=== PATIENT | male | born 1940 | race Two or more races ===

== ENCOUNTER → 2016-12-22 | Outpatient (CLI) | payer MEDICARE, MEDICAID ==
[2016-12-08 08:23] LABS: Urine RBC None Seen /hpf (0 - 3)
[2016-12-08 08:31] LABS: Basophils # (auto) 0 uL; Basophils % (auto) 0.1 % (0.0-2.0); Eosinophils # (auto) 0 uL; Hematocrit 41.3 % (41.0-53.0); Hemoglobin 14.2 g/dL (13.5-17.5); Lymphocytes # (auto) 1.5 uL; Lymphocytes % (auto) 22.4 % (10.0-50.0); Mean Corpuscular Hgb Conc. 34.4 g/dL (32.0-36.0); Mean Corpuscular Volume 89.9 fL (80.0-100.0); Mean Platelet Volume 9.6 fL (7.4-10.4); Monocytes # (auto) 0.2 uL; Monocytes % (auto) 3.3 % (0.0-12.0); Neutrophils # (auto) 4.8 uL; Neutrophils % (auto) 74.2 % (37.0-80.0); Platelet Count (auto) 216 10^3/uL (140-450); Red Cell Distribution Width 13.5 % (11.6-16.0); White Blood Cell 6.5 10^3/uL (4.4-10.8)
[2016-12-08 08:36] LABS: Urine Bilirubin Negative (Negative); Urine Blood Negative /uL (Negative); Urine Color Yellow (Yellow); Urine Glucose Normal (Normal); Urine Ketone Negative (Negative); Urine Mucus FEW (None Seen); Urine Nitrite Negative (Negative); Urine Squamous Epithelial Cell FEW /hpf (<5); Urine Urobilinogen Normal (Negative); Urine pH 5.5 (5.0-8.0)
[2016-12-08 13:23] LABS: BUN/Creatinine Ratio 21.7; Bilirubin, Total 0.6 mg/dL (0.2-1.0); Potassium 3.8 mmol/L (3.5-5.1); Total Protein 7.2 g/dL (6.4-8.2)
[~2016-12-22] MED LIST: ALBUTEROL SULF 2.5 MG/0.5ML(0.5%) NEB SOLN ONE
== END | disposition home or self-care (01) ==
LOC: PF 12-08 07:33 → LAB 12-08 07:55 → RT 10:46
PROVIDERS: ATTEND Internal Medicine
DX: Z00.00 Encounter for general adult medical examination without abnormal findings (principal); I10 Essential (primary) hypertension; E78.2 Mixed hyperlipidemia; E55.9 Vitamin D deficiency, unspecified; R05 Cough; R73.09 Other abnormal glucose
CPT/HCPCS: 36415; 80053; 80061; 81001; 82306; 83036; 85025; 94060

== ENCOUNTER → 2017-09-24 | Outpatient (CLI) | payer MEDICARE, MEDICAID ==
[2017-09-24 08:29] LABS: Basophils # (auto) 0.1 uL; Basophils % (auto) 0.9 % (0.0-2.0); Eosinophils # (auto) 0.7 uL; Eosinophils % (auto) 9.5 % (0.0-7.0); Hematocrit 40.8 % (41.0-53.0); Hemoglobin 13.8 g/dL (13.5-17.5); Lymphocytes # (auto) 1.9 uL; Lymphocytes % (auto) 24.3 % (10.0-50.0); Mean Corpuscular Hemoglobin 31.2 pg (28.0-32.0); Mean Corpuscular Hgb Conc. 33.9 g/dL (32.0-36.0); Mean Corpuscular Volume 92.2 fL (80.0-100.0); Monocytes # (auto) 0.6 uL; Monocytes % (auto) 8.3 % (0.0-12.0); Neutrophils # (auto) 4.3 uL; Platelet Count (auto) 176 10^3/uL (140-450); Red Blood Cells 4.42 10^6/uL (4.5-5.90); White Blood Cell 7.6 10^3/uL (4.4-10.8)
[2017-09-24 11:47] LABS: Calcium 8.7 mg/dL (8.5-10.1); Potassium 3.4 mmol/L (3.5-5.1); Total Protein 7.2 g/dL (6.4-8.2)
== END | disposition home or self-care (01) ==
LOC: LAB 07:56
PROVIDERS: ATTEND Physician Assistant
DX: I10 Essential (primary) hypertension (principal); J30.9 Allergic rhinitis, unspecified; J42 Unspecified chronic bronchitis
CPT/HCPCS: 36415; 80053; 80061; 85025

== ENCOUNTER → 2018-09-06 | Outpatient (CLI) | payer MEDICARE, MEDICAID ==
[2018-09-06 09:03] LABS: Basophils # (auto) 0 uL; Basophils % (auto) 0.8 % (0.0-2.0); Eosinophils # (auto) 0.2 uL; Eosinophils % (auto) 3.6 % (0.0-7.0); Hematocrit 41.6 % (41.0-53.0); Hemoglobin 13.9 g/dL (13.5-17.5); Lymphocytes # (auto) 1.4 uL; Lymphocytes % (auto) 28.9 % (10.0-50.0); Mean Corpuscular Hgb Conc. 33.5 g/dL (32.0-36.0); Mean Corpuscular Volume 92.5 fL (80.0-100.0); Monocytes # (auto) 0.4 uL; Monocytes % (auto) 8.1 % (0.0-12.0); Neutrophils # (auto) 2.8 uL; Neutrophils % (auto) 58.6 % (37.0-80.0); Platelet Count (auto) 213 10^3/uL (140-450); Red Blood Cells 4.49 10^6/uL (4.5-5.90); Red Cell Distribution Width 13.3 % (11.8-14.3); White Blood Cell 4.9 10^3/uL (4.4-10.8)
[2018-09-06 09:49] LABS: BUN/Creatinine Ratio 14.6; Potassium 3.7 mmol/L (3.5-5.1)
[2018-09-06 09:56] LABS: Bilirubin, Total 0.7 mg/dL (0.2-1.0); Total Protein 7.3 g/dL (6.4-8.2)
== END | disposition home or self-care (01) ==
LOC: LAB 08:39
PROVIDERS: ATTEND Physician Assistant
DX: Z12.5 Encounter for screening for malignant neoplasm of prostate (principal); I10 Essential (primary) hypertension; J45.20 Mild intermittent asthma, uncomplicated; R73.03 Prediabetes
CPT/HCPCS: 36415; 80053; 80061; 83036; 84153; 84154; 85025

== ENCOUNTER → 2018-09-16 | Outpatient (CLI) | payer MEDICARE, MEDICAID | END | disposition home or self-care (01) | LOC: LAB 09:08 | PROVIDERS: ATTEND Urology | DX: N39.0 Urinary tract infection, site not specified (principal) | CPT/HCPCS: 87086 ==

== ENCOUNTER 2018-11-22 13:49 | Inpatient (IN) | payer MEDICARE, MEDICAID ==
[~2018-11-22] VITALS: Ht 170.2 cm; Wt 85.5 kg
[2018-11-22] MEDS: IPRATROPIUM BROM 0.5 MG/2.5ML INH SOL NEB SCH ×2 (06:29)
[2018-11-22] MEDS: ALBUTEROL SULF 2.5 MG/0.5ML(0.5%) NEB SOLN NEB SCH ×2 (06:29)
[2018-11-22 16:40] LABS: Basophils # (auto) 0 uL; Basophils % (auto) 0.5 % (0.0-2.0); Eosinophils # (auto) 0.1 uL; Eosinophils % (auto) 1.2 % (0.0-7.0); Hematocrit 44.1 % (41.0-53.0); Hemoglobin 14.8 g/dL (13.5-17.5); Lymphocytes % (auto) 12.9 % (10.0-50.0); Mean Corpuscular Hgb Conc. 33.5 g/dL (32.0-36.0); Mean Corpuscular Volume 92.5 fL (80.0-100.0); Monocytes % (auto) 12.8 % (0.0-12.0); Neutrophils # (auto) 5.6 uL; Neutrophils % (auto) 72.6 % (37.0-80.0); Platelet Count (auto) 160 10^3/uL (140-450); Red Blood Cells 4.77 10^6/uL (4.5-5.90); Red Cell Distribution Width 13.6 % (11.8-14.3); White Blood Cell 7.7 10^3/uL (4.4-10.8)
[2018-11-22 16:46] LABS: Albumin 4.3 g/dL (3.4-5.0); Anion Gap 6 (5-15); Blood Urea Nitrogen 14 mg/dL (7-18); Calcium 8.8 mg/dL (8.5-10.1); Carbon Dioxide 29 mmol/L (21-32); Chloride 104 mmol/L (98-107); Glucose 123 mg/dL (74-106); Potassium 3.6 mmol/L (3.5-5.1); Sodium 139 mmol/L (136-145)
[2018-11-22 16:53] LABS: Alanine Aminotransferase 21 U/L (16-61); Alkaline Phosphatase 45 U/L (45-117); Aspartate Aminotransferase 15 U/L (15-37); BUN/Creatinine Ratio 13.1; Bilirubin, Total 1.1 mg/dL (0.2-1.0); GFR African American 86 mL/min; GFR Non-African American 71 mL/min; Total Protein 8.1 g/dL (6.4-8.2)
[2018-11-22] MEDS ORDERED: ACETAMINOPHEN 325 MG TAB PO ONE (19:45)
[2018-11-22] MEDS ORDERED: ACETAMINOPHEN 500 MG TAB PO PRN (20:00)
[2018-11-22] MEDS ORDERED: MORPHINE SULFATE 4 MG/ML SYR/VIAL IV PRN (20:00)
[2018-11-22] MEDS ORDERED: HYDROcodone-ACET 5/325MG TAB PO PRN (20:00)
[2018-11-22] MEDS ORDERED: ONDANSETRON HCL 4 MG/2 ML VIAL IV PRN (20:00)
[2018-11-22] MEDS ORDERED: MORPHINE SULF INJ 2 MG/ML SYRINGE 1ML IV PRN (20:00)
[2018-11-22] MEDS ORDERED: NITROGLYCERIN 0.4 MG SL TAB SL PRN (20:00)
[2018-11-22] MEDS ORDERED: hydrALAZINE HCL 20 MG/ML VL IV PRN (20:00)
[2018-11-22] MEDS: cefTRIAXone 1GM/50ML D5W 50 ML IV SCH (20:22)
[2018-11-22] MEDS: AZITHROMYCIN 500MG/ 250ML 250 ML IV SCH (20:39)
[2018-11-22] MEDS ORDERED: ALBUTEROL SULF 2.5 MG/0.5ML(0.5%) NEB SOLN NEB ONE ×2 (21:00)
[2018-11-22] MEDS ORDERED: IPRATROPIUM BROM 0.5 MG/2.5ML INH SOL NEB ONE (21:00)
[2018-11-22] MEDS: methylPREDNISolone SOD SUCC 125 MG/2 ML VL IV SCH (21:31)
--- NOTE | 2018-11-22 21:47 | NUR ---
Telemetry admit from ESTELA TIJERINA admitted to Telemetry unit. Patient oriented to Swapna Levin, primary RN, unit, room, bed, and unit policies regarding patient care and visiting hours. Patient now on continuous telemetry monitoring, tele box # [id number] and telemetry reading on arrival to unit is SR 70s. Patient's vs taken and recorded, placed on bedside oxygen, weighed by bedscale and encouraged to call if they need something, call light within reach. POC reviewed with pt and pt's daughter who also translated for pt. All questions and concerns addressed, both verbalized understanding. Side rails up x2, bed in lowest, locked position, non skid socks on. Continue care. Note:
[2018-11-22 22:00] VITALS: BP 136/83
[2018-11-22] MEDS ORDERED: NIFE90TA30 PO (22:35)
[2018-11-22] MEDS ORDERED: LISI40TA PO (22:35)
[2018-11-22] MEDS ORDERED: RANI150C11 PO (22:35)
[2018-11-22] MEDS ORDERED: DOXA4TAB40 PO (22:35)
[2018-11-22] MEDS ORDERED: [UNRECOGNIZED DRUG - CODE] PO (22:35)
[2018-11-23 03:33] VITALS: BP 136/83
[2018-11-23 05:06] VITALS: BP 140/84
[2018-11-23] MEDS: ALBUTEROL SULF 2.5 MG/0.5ML(0.5%) NEB SOLN NEB SCH ×4 (06:29→22:36)
[2018-11-23] MEDS: IPRATROPIUM BROM 0.5 MG/2.5ML INH SOL NEB SCH ×4 (06:29→22:36)
--- NOTE | 2018-11-23 07:15 | NUR ---
OPENING SHIFT NOTE Patient is A/Ox4. No s/s of distress noted at this time. Patient denies any pain. Discussed POC with patient, patient verbalized understanding. Bed in lowest locked position, call light within reach, side rails up x2. Will continue to monitor.
[2018-11-23 08:13] LABS: Urine Bacteria NONE SEEN /hpf (None Seen); Urine Blood Negative /uL (Negative); Urine Mucus FEW (None Seen); Urine Specific Gravity 1.021 (1.001-1.035); Urine WBC <1 /hpf (0 - 3)
[2018-11-23 08:55] VITALS: BP 137/85
[2018-11-23] MEDS: methylPREDNISolone SOD SUCC 125 MG/2 ML VL IV SCH ×2 (09:00→21:42)
[2018-11-23] MEDS ORDERED: amLODIPine BESYLATE 5 MG TAB PO SCH (10:00)
[2018-11-23] MEDS: AZITHROMYCIN 500MG/ 250ML 250 ML IV SCH (10:03)
[2018-11-23] MEDS: cefTRIAXone 1GM/50ML D5W 50 ML IV SCH (10:03)
[2018-11-23] MEDS: PANTOPRAZOLE 40 MG TAB PO SCH (10:04)
[2018-11-23 12:05] LABS: Basophils # (auto) 0 uL; Eosinophils # (auto) 0 uL; Hemoglobin 13.9 g/dL (13.5-17.5); Lymphocytes # (auto) 0.6 uL; Lymphocytes % (auto) 8.1 % (10.0-50.0); Mean Corpuscular Hemoglobin 31.4 pg (28.0-32.0); Mean Corpuscular Hgb Conc. 33.8 g/dL (32.0-36.0); Mean Corpuscular Volume 92.7 fL (80.0-100.0); Monocytes # (auto) 0.3 uL; Monocytes % (auto) 3.5 % (0.0-12.0); Neutrophils # (auto) 6.4 uL; Neutrophils % (auto) 88.4 % (37.0-80.0); Platelet Count (auto) 154 10^3/uL (140-450); Red Blood Cells 4.42 10^6/uL (4.5-5.90); Red Cell Distribution Width 13.4 % (11.8-14.3); White Blood Cell 7.2 10^3/uL (4.4-10.8)
[2018-11-23 12:32] LABS: Potassium 4.4 mmol/L (3.5-5.1)
[2018-11-23 12:43] LABS: BUN/Creatinine Ratio 19.4; Calcium 8.6 mg/dL (8.5-10.1)
[2018-11-23] MEDS ORDERED: IOHEXOL 350 MG/ML 100ML IJ ONE (12:44)
[2018-11-23] MEDS ORDERED: SODIUM CHLORIDE 0.9% 1,000 ML IV ONE (12:45)
--- NOTE | 2018-11-23 12:55 | NUR ---
PATIENT TAKEN TO RADIOLOGY VIA WHEELCHAIR, NO S/S OF DISTRESS NOTED AT THIS TIME.
[2018-11-23 13:00] VITALS: BP 143/88
[2018-11-23 17:00] VITALS: BP 148/85
--- NOTE | 2018-11-23 18:14 | NUR ---
PAGED HOSPITALIST TO SEE IF THE PATIENT COULD RECEIVE HIS MEDS FOR HIS BPH. WAITING FOR A CALL BACK.
--- NOTE | 2018-11-23 19:27 | NUR ---
GAVE REPORT TO MONIQUE REDD
--- NOTE | 2018-11-23 20:30 | NUR ---
Opening Shift Note Assumed care of patient, awake and alert, oriented x4. No S/S of distress/SOB or pain. Instructed on POC, verbalized understanding. Call light within reach and encouraged to call for assist PRN, will continue to monitor for changes Q1hr and PRN. Side rails up x2, bed in lowest, locked position, non skid socks on. Daughter at bedside translating for pt. Pt requesting to have his ranitidine, nifedipine and lisinopril continued. Will inform hospitalist. Continue care.
--- NOTE | 2018-11-23 21:00 | NUR ---
POM DUTASTERIDE SENT DOWN TO PHARMACY. POM BAND PLACED ON PT. CONTINUE CARE.
[2018-11-23] MEDS: ACETYLCYSTEINE 10 %(100MG/ML) SOL 4ML NEB SCH (21:06)
[2018-11-23] MEDS: DUTASTERIDE 0.5 MG PO SCH (21:35)
[2018-11-23] MEDS: DOXAZOSIN MESYL 2 MG TAB PO SCH (21:43)
[2018-11-23 21:46] VITALS: BP 145/84
--- NOTE | 2018-11-23 22:00 | NUR ---
TRUCK LEASING MANAGER Called/paged Thompson Acuña TRUCK LEASING MANAGER called re:med reconciliation-lisinopril, nifedipine, ranitidine. Waiting for call back. Continue care.
--- NOTE | 2018-11-23 22:41 | NUR ---
HEALTH CARE AIDE returned call Thompson Acuña HEALTH CARE AIDE returned call, updated on patient status and reason for call, no new orders. Per HEALTH CARE AIDE, have AM hospitalist reconcile home meds. Continue care.
[2018-11-24 01:40] VITALS: BP 145/84
[2018-11-24 04:55] VITALS: BP 143/70
[2018-11-24 04:56] VITALS: BP 153/80
[2018-11-24] MEDS: ALBUTEROL SULF 2.5 MG/0.5ML(0.5%) NEB SOLN NEB SCH ×3 (06:59→19:35)
[2018-11-24] MEDS: IPRATROPIUM BROM 0.5 MG/2.5ML INH SOL NEB SCH ×3 (06:59→19:35)
[2018-11-24] MEDS: ACETYLCYSTEINE 10 %(100MG/ML) SOL 4ML NEB SCH ×3 (07:02→19:35)
--- NOTE | 2018-11-24 07:30 | NUR ---
Opening Shift Note Assumed care of patient, awake and alert, sitting on bed. No S/S of distress/SOB or pain. Noted lungs clear on upper lobes and diminished on bilateral lower lobes. Pt encouraged to do deep breathing and coughing exercises. Instructed on POC and to call for assist PRN, will continue to monitor for changes Q1hr and PRN.
[2018-11-24 09:00] VITALS: BP 155/89
--- NOTE | 2018-11-24 09:01 | NUR ---
Pt seen by Dr. Marte pt made aware he needs repeat chest xray, ordered incentive spirometer.
[2018-11-24] MEDS: AZITHROMYCIN 500MG/ 250ML 250 ML IV SCH (09:34)
[2018-11-24] MEDS: methylPREDNISolone SOD SUCC 125 MG/2 ML VL IV SCH ×2 (09:34→23:18)
[2018-11-24] MEDS: cefTRIAXone 1GM/50ML D5W 50 ML IV SCH (09:34)
[2018-11-24] MEDS: PANTOPRAZOLE 40 MG TAB PO SCH (09:35)
--- NOTE | 2018-11-24 09:35 | NUR ---
Pt educated on how to use the incentive spirometer and its benefits, pt able to demonstrate how to use the IS, pt verbalized understanding.
[2018-11-24] MEDS: LISINOPRIL 20 MG TAB PO SCH (09:44)
[2018-11-24] MEDS: NIFEdipine ER 30 MG TAB PO SCH (09:44)
--- NOTE | 2018-11-24 11:18 | NUR ---
STRESS TEST RESULT CALLED STRESS TEST LAB, SPOKE WITH AUNDREA, SHE SAID DR. CAMACHO WILL READ IT LATER THIS AFTERNOON
[2018-11-24 13:00] VITALS: BP 140/88
--- NOTE | 2018-11-24 16:54 | NUR ---
PT SEEN BY DR. ROCK PT MADE AWARE HE WILL BE SCHEDULED FOR BRONCHOSCOPY WITH WASHING BRUSHING AND BIOPSY TOMORROW MORNING UNDER MODERATE SEDATION, PROCEDURE EXPLAINED TO THE PT BY MD, PT VERBALIZED UNDERSTANDING. CERTIFIED HYPERBARIC TECHNOLOGIST RONNIE MADE AWARE AND SCHEDULED THE PT AT 10AM TOMORROW DR. ROCK MADE AWARE OF THE TIME.
[2018-11-24 17:00] VITALS: BP 125/80
--- NOTE | 2018-11-24 19:35 | NUR ---
Respiratory note: PT REFUSED CPT AT THIS TIME. WILL CONTINUE ON NEXT SCHEDULED TX.
--- NOTE | 2018-11-24 20:00 | NUR ---
Opening Shift Note Assumed care of patient, awake and alert, oriented x4. No S/S of distress/SOB or pain. Instructed on POC, verbalized understanding, aware he will be npo p mn for bronchoscopy in am. Bronchoscopy education material given to pt and pt's daughter. Call light within reach and encouraged to call for assist PRN, will continue to monitor for changes Q1hr and PRN. Side rails up x2, bed in lowest, locked position, non skid socks on. Daughter at bedside translating for pt. Continue care.
--- NOTE | 2018-11-24 22:00 | NUR ---
IV insertion IV access obtained, via clean sterile technique by inserting 20 gauge catheter at R WRIST after 1 attempt(s)by Raji REDD. IV secured properly. No trauma to site. Patient tolerated well. NOTE: IV removal IV DC'd with clean sterile technique, catheter fully intact. Pressure dressing applied to site. Patient tolerated well. NOTE: Addendum: 11/25/18 at 0111 by Swapna Levin RN 2145-IV START UNSUCCESSFUL X2.
[2018-11-24] MEDS: DOXAZOSIN MESYL 2 MG TAB PO SCH (22:29)
[2018-11-24] MEDS: DUTASTERIDE 0.5 MG PO SCH (22:29)
[2018-11-24 22:47] LABS: INR 0.99 (0.9-1.15); Partial Thromboplastin Time 26.4 sec (23.78-33.04); Prothrombin Time 10.6 sec (9.27-12.13)
[2018-11-25 05:00] VITALS: BP 138/80
[2018-11-25] MEDS: ACETYLCYSTEINE 10 %(100MG/ML) SOL 4ML NEB SCH ×3 (06:26→18:47)
[2018-11-25] MEDS: IPRATROPIUM BROM 0.5 MG/2.5ML INH SOL NEB SCH ×4 (06:26→18:47)
[2018-11-25] MEDS: ALBUTEROL SULF 2.5 MG/0.5ML(0.5%) NEB SOLN NEB SCH ×4 (06:26→18:47)
[2018-11-25 08:26] VITALS: BP 122/72
[2018-11-25] MEDS: methylPREDNISolone SOD SUCC 125 MG/2 ML VL IV SCH ×2 (08:34→21:50)
[2018-11-25] MEDS ORDERED: LIDOCAINE HCL 2% TOP JELLY 5ML TOP ONE (08:36)
[2018-11-25] MEDS ORDERED: GLYCOPYRROLATE 0.2 MG/ML 1ML VIAL ONE (08:36)
[2018-11-25] MEDS ORDERED: SODIUM CHLORIDE LOCK 30 ML ONE (08:36)
[2018-11-25] MEDS ORDERED: EPINEPHrine HCL 1 MG/1 ML AMP ONE (08:36)
[2018-11-25] MEDS ORDERED: LIDOCAINE 2%HCL (LOCAL ANESTH.) INJ 20ML MDV ONE (08:37)
[2018-11-25] MEDS: cefTRIAXone 1GM/50ML D5W 50 ML IV SCH (08:50)
[2018-11-25] MEDS: AZITHROMYCIN 500MG/ 250ML 250 ML IV SCH (09:51)
--- NOTE | 2018-11-25 10:00 | NUR ---
MEDICATION HELD PO MEDICATON HELD PT IS NPO FOR PROCEDURE.
--- NOTE | 2018-11-25 11:12 | NUR ---
PT TRANSPORTED TO PRE-OP VIA BED FOR BRONCHOSCOPY, PT IS AWAKE AND ALERT, PRE-OP CHECKLIST COMPLETED AND CONSENTS SIGNED, IV ON RIGHT WRIST PATENT AND FLUSHING.
[2018-11-25] MEDS: MIDAZOLAM HCL 5 MG/ML-1ML VIAL ONE ×4 (11:54→12:11)
[2018-11-25] MEDS: fentaNYL CITRATE 100 MCG/2 ML VL ONE ×3 (11:54→12:02)
--- NOTE | 2018-11-25 14:18 | NUR ---
RECEIVED PT FROM PACU PT IS AWAKE AND ALERT, NO SIGNS OF DISTRESS AT THIS TIME, WILL CONTINUE TO MONITOR.
--- NOTE | 2018-11-25 14:47 | NUR ---
NUTRITION ASSESSMENT NOTES Please refer to link notes of nutrition screen form filed under the intervention section of the plan of care for further details. Est. Needs: 1750 kcal to 2150 kcal (20-25 kcal/kgBW), 70 gms to 87 gms pro (0.8-1.0 gms/kgBW). Will continue to monitor pertinent labs and reassess nutrient need prn Thank you. Addendum: 11/25/18 at [address] Amended: Links added.
[2018-11-25] MEDS: PANTOPRAZOLE 40 MG TAB PO SCH (14:49)
[2018-11-25] MEDS: NIFEdipine ER 30 MG TAB PO SCH (14:49)
[2018-11-25] MEDS: LISINOPRIL 20 MG TAB PO SCH (14:50)
[2018-11-25 16:22] VITALS: BP 119/67
--- NOTE | 2018-11-25 19:40 | NUR ---
Opening Shift Note Assumed care of patient, awake and alert. No S/S of distress/SOB or pain. Pt is currently resting in bed with the rails up x2, bed is locked in the lowest position and the call light is within reach. Pt has a 20ga IV in the right wrist that flushes without discomfort. Instructed on POC and to call for assist as needed. Will continue to monitor.
[2018-11-25] MEDS: DUTASTERIDE 0.5 MG PO SCH (21:50)
[2018-11-25] MEDS: DOXAZOSIN MESYL 2 MG TAB PO SCH (21:51)
[2018-11-25 22:00] VITALS: BP 120/72
[2018-11-26 05:00] VITALS: BP 126/77
[2018-11-26] MEDS: ALBUTEROL SULF 2.5 MG/0.5ML(0.5%) NEB SOLN NEB SCH ×5 (06:37→22:47)
[2018-11-26] MEDS: ACETYLCYSTEINE 10 %(100MG/ML) SOL 4ML NEB SCH ×3 (06:37→19:31)
[2018-11-26] MEDS: IPRATROPIUM BROM 0.5 MG/2.5ML INH SOL NEB SCH ×5 (06:37→22:47)
--- NOTE | 2018-11-26 07:30 | NUR ---
OPENING SHIFT NOTE: Received report from NOC RNBlair. Assumed care of patient. Patient resting in bed, denies pain and denies SOB. Remains on 4L via Oxymizer. Bed in lowest position, rails x2 up and call light within reach. Updated on plan of care. Will continue to monitor.
--- NOTE | 2018-11-26 08:02 | NUR ---
MD/PULMONOLOGY: T/C from Dr Coon. Updated MD on patient's status overnight. MD recommends the following on discharge: Prednisone, Inhalers - steroid and rescue, home O2, CXR pa/lat and to follow up with him in 1 week from discharge. RN to relay to hospitalist.
[2018-11-26 08:32] VITALS: BP 135/69
[2018-11-26 09:31] VITALS: BP 120/72
[2018-11-26] MEDS: methylPREDNISolone SOD SUCC 125 MG/2 ML VL IV SCH ×2 (09:50→21:15)
[2018-11-26] MEDS: PANTOPRAZOLE 40 MG TAB PO SCH (09:51)
[2018-11-26] MEDS: AZITHROMYCIN 500MG/ 250ML 250 ML IV SCH (09:51)
[2018-11-26] MEDS: cefTRIAXone 1GM/50ML D5W 50 ML IV SCH (09:51)
[2018-11-26] MEDS: LISINOPRIL 20 MG TAB PO SCH (09:51)
[2018-11-26] MEDS: NIFEdipine ER 30 MG TAB PO SCH (09:52)
[2018-11-26 12:46] VITALS: BP 127/78
[2018-11-26 17:03] VITALS: BP 114/76
--- NOTE | 2018-11-26 18:42 | NUR ---
MD: Dr Naylor at bedside to see patient. Patient placed on room air, room air ABG ordered. Plan for discharge in AM 11/27/18.
--- NOTE | 2018-11-26 19:20 | NUR ---
CLOSING SHIFT NOTE: Report given to NOC RN Cassie. Endorsed care of patient. Bedside hand off completed.
--- NOTE | 2018-11-26 19:40 | NUR ---
Opening Shift Note Assumed care of patient, awake and alert x 4. Patient denies pain at this time. Patient is on nasal cannula 3L, oxygen saturation is 91%. Patient denies shortness of breath. Instructed on plan of care and to call for assistance as needed. Bed is locked in lowest position, side rails x 2 are up, and call light is within reach.
[2018-11-26] MEDS: DOXAZOSIN MESYL 2 MG TAB PO SCH (21:14)
[2018-11-26] MEDS: DUTASTERIDE 0.5 MG PO SCH (21:15)
[2018-11-26 22:00] VITALS: BP 113/78
[2018-11-27 03:42] VITALS: BP 113/78
[2018-11-27 05:00] VITALS: BP 121/73
[2018-11-27] MEDS: IPRATROPIUM BROM 0.5 MG/2.5ML INH SOL NEB SCH ×3 (06:23→19:10)
[2018-11-27] MEDS: ACETYLCYSTEINE 10 %(100MG/ML) SOL 4ML NEB SCH ×3 (06:23→19:11)
[2018-11-27] MEDS: ALBUTEROL SULF 2.5 MG/0.5ML(0.5%) NEB SOLN NEB SCH ×3 (06:23→19:10)
--- NOTE | 2018-11-27 07:21 | NUR ---
CLOSING SHIFT NOTE Endorsed patient care to Jessica REDD.
--- NOTE | 2018-11-27 07:30 | NUR ---
OPENING SHIFT NOTE: Received report from NOC RNCassie. Assumed care of patient. Patient resting in bed, denies pain and denies SOB. Remains on 3L via NC. Bed in lowest position, rails x2 up and call light within reach. Updated on plan of care. Will continue to monitor.
[2018-11-27 09:43] VITALS: BP 130/64
[2018-11-27] MEDS: AZITHROMYCIN 500MG/ 250ML 250 ML IV SCH (10:11)
[2018-11-27] MEDS: cefTRIAXone 1GM/50ML D5W 50 ML IV SCH (10:11)
[2018-11-27] MEDS: methylPREDNISolone SOD SUCC 125 MG/2 ML VL IV SCH ×2 (10:12→21:57)
[2018-11-27] MEDS: PANTOPRAZOLE 40 MG TAB PO SCH (10:12)
[2018-11-27] MEDS: LISINOPRIL 20 MG TAB PO SCH (10:13)
[2018-11-27] MEDS: NIFEdipine ER 30 MG TAB PO SCH (10:13)
[2018-11-27 13:44] VITALS: BP 120/84
--- NOTE | 2018-11-27 15:30 | NUR ---
MD: Dr Mesa at bedside. Patient examined. Orders given for additional SoluMedrol dose x1. Family educated about holding discharge until tomorrow if patient improves.
[2018-11-27] MEDS ORDERED: methylPREDNISolone SOD SUCC 125 MG/2 ML VL IV ONE (15:45)
[2018-11-27 17:27] VITALS: BP 127/76
--- NOTE | 2018-11-27 19:11 | NUR ---
CLOSING SHIFT NOTE: Report given to NOC RN Cassie. Endorsed care of patient. Bedside hand off completed.
--- NOTE | 2018-11-27 19:45 | NUR ---
Opening Shift Note Assumed care of patient, awake and alert x4. Patient denies pain at this time. Patient is on 3L nasal cannula, no signs/symptoms of shortness of breath noted. Instructed on plan of care and to call for assistance as needed. Bed is locked in lowest position, side rails x 2 are up, call light is within reach, and bed alarm is on.
--- NOTE | 2018-11-27 21:52 | NUR ---
HOSPITALIST PAGED RE: DRY THROAT Hospitalist paged. Patient had a bronchoscopy on 11-25-18 and patient is complaining of a dry/irritated throat. Awaiting call back.
[2018-11-27] MEDS: DOXAZOSIN MESYL 2 MG TAB PO SCH (21:57)
[2018-11-27] MEDS: DUTASTERIDE 0.5 MG PO SCH (21:58)
--- NOTE | 2018-11-27 22:14 | NUR ---
HOSPITALIST RETURNED CALL Hospitalist HAILE May returned call, notified on patient complaining of dry/irritated throat. No new orders received.
[2018-11-28 05:00] VITALS: BP 138/72
[2018-11-28] MEDS: ACETYLCYSTEINE 10 %(100MG/ML) SOL 4ML NEB SCH ×4 (07:46→22:17)
[2018-11-28] MEDS: IPRATROPIUM BROM 0.5 MG/2.5ML INH SOL NEB SCH ×4 (07:46→22:17)
[2018-11-28] MEDS: ALBUTEROL SULF 2.5 MG/0.5ML(0.5%) NEB SOLN NEB SCH (07:46)
--- NOTE | 2018-11-28 07:54 | NUR ---
CLOSING SHIFT NOTE Endorsed patient care to Lisa REDD.
--- NOTE | 2018-11-28 07:55 | NUR ---
Opening Shift Note Assumed care of patient, awake and alert. No S/S of distress, SOB noted on exertion/activity, no reports of pain. Instructed on POC-continue with IV antibiotics. Patient informed to call for assist PRN, will continue to monitor for changes Q1hr and PRN.
[2018-11-28 09:00] VITALS: BP 110/69
[2018-11-28] MEDS: AZITHROMYCIN 500MG/ 250ML 250 ML IV SCH (10:07)
[2018-11-28] MEDS: methylPREDNISolone SOD SUCC 125 MG/2 ML VL IV SCH ×3 (10:07→21:56)
[2018-11-28] MEDS: cefTRIAXone 1GM/50ML D5W 50 ML IV SCH (10:07)
[2018-11-28] MEDS: PANTOPRAZOLE 40 MG TAB PO SCH (10:08)
[2018-11-28] MEDS ORDERED: MORPHINE SULF INJ 2 MG/ML SYRINGE 1ML IV PRN (11:30)
[2018-11-28] MEDS ORDERED: HYDROcodone-ACET 5/325MG TAB PO PRN (11:30)
[2018-11-28] MEDS ORDERED: METOPROLOL TARTRATE 25 MG TAB PO ONE (11:45)
[2018-11-28 12:14] LABS: Basophils # (auto) 0 uL; Basophils % (auto) 0.1 % (0.0-2.0); Eosinophils # (auto) 0 uL; Hematocrit 42.9 % (41.0-53.0); Hemoglobin 14.5 g/dL (13.5-17.5); Lymphocytes # (auto) 0.7 uL; Lymphocytes % (auto) 7.2 % (10.0-50.0); Mean Corpuscular Hemoglobin 31.1 pg (28.0-32.0); Mean Corpuscular Hgb Conc. 33.9 g/dL (32.0-36.0); Mean Corpuscular Volume 91.7 fL (80.0-100.0); Neutrophils # (auto) 8.1 uL; Neutrophils % (auto) 82.7 % (37.0-80.0); Nucleated Red Blood Cells % 0.1 %; Platelet Count (auto) 184 10^3/uL (140-450); Red Blood Cells 4.68 10^6/uL (4.5-5.90); Red Cell Distribution Width 13.2 % (11.8-14.3); White Blood Cell 9.9 10^3/uL (4.4-10.8)
[2018-11-28] MEDS: NIFEdipine ER 30 MG TAB PO SCH (12:14)
[2018-11-28] MEDS: LISINOPRIL 20 MG TAB PO SCH (12:14)
[2018-11-28 12:25] LABS: BUN/Creatinine Ratio 26.6; Calcium 8.3 mg/dL (8.5-10.1); Magnesium 2.9 mg/dL (1.6-2.6); Phosphorus 2.6 mg/dL (2.5-4.90); Potassium 3.6 mmol/L (3.5-5.1)
--- NOTE | 2018-11-28 13:49 | NUR ---
Care endorsed to TRAMAINE Reddy.
[2018-11-28 13:50] VITALS: BP 157/75
--- NOTE | 2018-11-28 13:50 | NUR ---
RESUMPTION OF CARE RECEIVED REPORT FROM TRAMAINE JACQUES FOR CONTINUATION OF CARE.
[2018-11-28] MEDS: LEVALBUTEROL HCL 1.25 MG/3 ML NEB NEB SCH ×2 (14:33→22:17)
[2018-11-28 17:00] VITALS: BP 121/81
--- NOTE | 2018-11-28 18:50 | NUR ---
END OF SHIFT PATIENT RESTING IN BED. NO S/S OF DISTRESS. INSTRUCTED PATIENT TO CALL PRN. BED IN LOWEST LOCKED POSITION, CALL LIGHT WITHIN REACH. ENDORSED CARE TO TRAMAINE AUGUSTINE.
--- NOTE | 2018-11-28 19:50 | NUR ---
Opening Shift Note Assumed care of patient, awake and alert, oriented x4. No S/S of distress/SOB or pain. Instructed on POC, verbalized understanding. Call light within reach and encouraged to call for assist PRN, will continue to monitor for changes Q1hr and PRN. Side rails up x2, bed in lowest, locked position, non skid socks on. Daughter at bedside translating for pt. Continue care.
[2018-11-28 21:00] VITALS: BP 136/71
[2018-11-28] MEDS: DUTASTERIDE 0.5 MG PO SCH (21:56)
[2018-11-28] MEDS: DOXAZOSIN MESYL 2 MG TAB PO SCH (21:56)
[2018-11-28] MEDS ORDERED: METOPROLOL TARTRATE 25 MG TAB PO SCH (22:00)
[2018-11-29] MEDS: ACETYLCYSTEINE 10 %(100MG/ML) SOL 4ML NEB SCH ×6 (02:15→22:31)
[2018-11-29] MEDS: IPRATROPIUM BROM 0.5 MG/2.5ML INH SOL NEB SCH ×6 (02:16→22:31)
[2018-11-29 05:00] VITALS: BP 106/68
[2018-11-29] MEDS: methylPREDNISolone SOD SUCC 125 MG/2 ML VL IV SCH (05:56)
[2018-11-29] MEDS: LEVALBUTEROL HCL 1.25 MG/3 ML NEB NEB SCH (07:22)
--- NOTE | 2018-11-29 07:55 | NUR ---
Opening Shift Note Assumed care of patient, awake, alert, and oriented x4. Patient has 4/10 complaints of headache at this time. Patient has IV in right wrist 20g saline locked and flushing well, patient tolerating well. Patient is on 3L NC with no S/S of distress/SOB. Patient's skin is intact. Instructed on POC and to call for assist PRN, will continue to monitor for changes Q1hr and PRN. Bed in lowest locked position, call light within reach.
[2018-11-29 08:00] VITALS: BP 132/65
[2018-11-29 08:30] VITALS: BP 132/65
[2018-11-29] MEDS: cefTRIAXone 1GM/50ML D5W 50 ML IV SCH (09:37)
[2018-11-29] MEDS: LISINOPRIL 20 MG TAB PO SCH (09:38)
[2018-11-29] MEDS: NIFEdipine ER 30 MG TAB PO SCH (09:38)
[2018-11-29] MEDS: PANTOPRAZOLE 40 MG TAB PO SCH (09:39)
[2018-11-29] MEDS: DILTIAZEM HCL 120MG ER CAP PO SCH (09:39)
[2018-11-29] MEDS: ENOXAPARIN SOD 40 MG/0.4 ML SYRINGE SC SCH (09:40)
[2018-11-29] MEDS ORDERED: ASPirin-EC 81 mg tab PO ONE (11:15)
[2018-11-29] MEDS ORDERED: DIGOXIN (250MCG/ML) 2 ML AMPULE IV SCH (11:15)
[2018-11-29] MEDS: DOXYCYCLINE 100 MG TAB/CAP PO SCH ×2 (12:27→22:27)
[2018-11-29] MEDS: predniSONE 20 MG TAB PO SCH (12:28)
[2018-11-29 12:30] VITALS: BP 130/80
[2018-11-29] MEDS: BUDESONIDE (INHALATION) 0.5 MG/2 ML NEB NEB SCH ×2 (14:17→22:31)
[2018-11-29 17:14] VITALS: BP 119/68
--- NOTE | 2018-11-29 17:45 | NUR ---
AT BEDSIDE DR. DURON AT BEDSIDE. PER MD, PATIENT TO GET ONE TIME DOSE OF PO DIGOXIN 0.25 TONIGHT. ORDERS READ BACK AND VERIFIED.
[2018-11-29] MEDS ORDERED: LEVALBUTEROL HCL 1.25 MG/3 ML NEB ONE (18:18)
--- NOTE | 2018-11-29 20:10 | NUR ---
Opening Shift Note Assumed care of patient, awake and alert, oriented x4. No S/S of distress/SOB or pain. Instructed on POC and encouraged use of IS, verbalized understanding and returned demo. Call light within reach and encouraged to call for assist PRN, will continue to monitor for changes Q1hr and PRN. Side rails up x2, bed in lowest, locked position, non skid socks on. Daughter at bedside translating for pt. Continue care.
[2018-11-29 21:43] VITALS: BP 114/67
[2018-11-29] MEDS ORDERED: DIGOXIN 0.25 MG TAB PO ONE (22:00)
[2018-11-29] MEDS: DOXAZOSIN MESYL 2 MG TAB PO SCH (22:27)
[2018-11-29] MEDS: DUTASTERIDE 0.5 MG PO SCH (22:27)
[2018-11-30] MEDS: ACETYLCYSTEINE 10 %(100MG/ML) SOL 4ML NEB SCH ×4 (02:00→14:27)
[2018-11-30] MEDS: IPRATROPIUM BROM 0.5 MG/2.5ML INH SOL NEB SCH ×4 (02:00→14:27)
[2018-11-30 02:27] VITALS: BP 114/67
[2018-11-30 04:22] VITALS: BP 116/78
--- NOTE | 2018-11-30 07:30 | NUR ---
OPENING SHIFT NOTE: Received report from NOC RNChristine. Assumed care of patient. Patient sleeping quietly. Bed in lowest position, rails x2 up and call light within reach. Updated on plan of care. Will continue to monitor.
[2018-11-30 09:00] VITALS: BP 122/82
--- NOTE | 2018-11-30 09:15 | NUR ---
TELE: Call from [facility]. Patient's HR 150. Went to assess patient. Patient sitting up in bed. No signs/symptoms of distress. Apical pulse taken. HR now 120. Will continue to monitor.
[2018-11-30] MEDS ORDERED: DIGOXIN 0.125 MG TAB PO SCH (10:00)
[2018-11-30] MEDS: ENOXAPARIN SOD 40 MG/0.4 ML SYRINGE SC SCH (10:00)
[2018-11-30] MEDS ORDERED: ASPirin-EC 81 mg tab PO SCH (10:00)
[2018-11-30] MEDS: BUDESONIDE (INHALATION) 0.5 MG/2 ML NEB NEB SCH (10:16)
[2018-11-30] MEDS: DOXYCYCLINE 100 MG TAB/CAP PO SCH (10:55)
[2018-11-30] MEDS: predniSONE 20 MG TAB PO SCH (10:57)
[2018-11-30] MEDS: PANTOPRAZOLE 40 MG TAB PO SCH (10:58)
[2018-11-30] MEDS: DILTIAZEM HCL 120MG ER CAP PO SCH (10:58)
[2018-11-30] MEDS: LISINOPRIL 20 MG TAB PO SCH (10:58)
[2018-11-30] MEDS ORDERED: DILTIAZEM HCL 120MG ER CAP PO ONE (12:30)
--- NOTE | 2018-11-30 12:35 | NUR ---
MD: Dr Marte to see patient. Per MD, spoke to patient's daughter via phone about discharge.
[2018-11-30] MEDS ORDERED: DIL120C PO (12:37)
[2018-11-30] MEDS ORDERED: ASP81EC PO (12:37)
[2018-11-30 13:00] VITALS: BP 96/68
[2018-11-30 13:23] VITALS: BP 96/68
--- NOTE | 2018-11-30 14:25 | NUR ---
PATIENT HAS BEEN ACCEPTED BY [facility] [phone]. START OF CARE WILL BE 24 TO 48 HOURS AFTER DISCHARGE.
--- NOTE | 2018-11-30 15:38 | NUR ---
assessment Patient is a 78 year old male who is alert and oriented. Vikash BAI is translating for us. Patients cognitive abilities are intact. Prior to admission patient lived home with family and functioned independently. Patient informed me he is able to care for his own ADLs. Per patient he will return home to his prior living arrangements post discharge and family will transport him home. Patient informed me he has no need for DME. Patient was admitted for respiratory failure. Patient may benefit from home health on discharge. I informed patient he has a right to speak to a social welfare administrator regarding all care. I informed patient he has a right to participate in any and all discharge planning. Patient is aware of visiting hours on the hospital floor. I informed patient he has a right to privacy. Patient does not have a POA and advanced directive. I have offered patient information on POA and advanced directives. I informed the patient the advantages and benefits of having an Advanced Directive. Patient verbalized understanding and agreed to discharge plan. Per ss consult home health safety, vitals, med management, and pulse ox. Patient has been given a list of medicare providers. Patient has no preference on who provides service. MD order has been sent to [facility]. Per [facility] service will start on 12/02/18. Patient has been notified. Addendum: 11/30/18 at 1545 by More CAMACHO Amended: Links added.
--- NOTE | 2018-11-30 16:05 | NUR ---
DISCHARGE: Discharge instructions given as ordered. Encourage to follow up with PMD as instructed. All questions and concerns addressed. Patient verbalized understanding. Medication reconciliation form completed and copy given to patient. Home medications held in Pharmacy returned to patient. IV removed with catheter intact, pressure dressing applied. Telemetry unit returned to [facility]. Patient walked self with all personal belongings, accompanied by staff and family member. No distress noted at time of departure.
== END 2018-11-30 16:00 | disposition home health service (06) | DRG 205 ==
LOC: ER 13:55 → TELE 20:02 → TELE-WESTW 21:44 → WEST WING 11-24 10:47 → TELE-WESTW 11-28 19:44
PROVIDERS: ADMIT Nurse Practitioner Acute Care; ATTEND Internal Medicine
PROC: 0BC88ZZ Extirpation of Matter from Left Upper Lobe Bronchus, Via Natural or Artificial Opening Endoscopic (ICD-10-PCS; 2018-11-25)
PROC: 0BC38ZZ Extirpation of Matter from Right Main Bronchus, Via Natural or Artificial Opening Endoscopic (ICD-10-PCS; 2018-11-25)
PROC: 0BCB8ZZ Extirpation of Matter from Left Lower Lobe Bronchus, Via Natural or Artificial Opening Endoscopic (ICD-10-PCS; 2018-11-25)
PROC: 0B968ZZ Drainage of Right Lower Lobe Bronchus, Via Natural or Artificial Opening Endoscopic (ICD-10-PCS; 2018-11-25)
PROC: 0B958ZZ Drainage of Right Middle Lobe Bronchus, Via Natural or Artificial Opening Endoscopic (ICD-10-PCS; 2018-11-25)
PROC: 0BC98ZZ Extirpation of Matter from Lingula Bronchus, Via Natural or Artificial Opening Endoscopic (ICD-10-PCS; principal; 2018-11-25 11:50)
DX: T17.590A Other foreign object in bronchus causing asphyxiation, initial encounter (principal); J18.1 Lobar pneumonia, unspecified organism; J96.01 Acute respiratory failure with hypoxia; J45.901 Unspecified asthma with (acute) exacerbation; I31.3 Pericardial effusion (noninflammatory); J44.0 Chronic obstructive pulmonary disease with (acute) lower respiratory infection; J44.1 Chronic obstructive pulmonary disease with (acute) exacerbation; J98.11 Atelectasis; E66.9 Obesity, unspecified; I10 Essential (primary) hypertension; I48.0 Paroxysmal atrial fibrillation; I70.0 Atherosclerosis of aorta; K21.9 Gastro-esophageal reflux disease without esophagitis; N40.0 Benign prostatic hyperplasia without lower urinary tract symptoms; X58.XXXA Exposure to other specified factors, initial encounter; Y93.89 Activity, other specified; Y92.89 Other specified places as the place of occurrence of the external cause; Z79.82 Long term (current) use of aspirin; Z86.73 Personal history of transient ischemic attack (TIA), and cerebral infarction without residual deficits; Z87.01 Personal history of pneumonia (recurrent); Z87.891 Personal history of nicotine dependence; Z68.29 Body mass index [BMI] 29.0-29.9, adult
CPT/HCPCS: 36415; 36600; 71045; 71046; 71275; 78452; 80048; 80053; 81001; 82805; 82962; 83605; 83735; 83880; 84100; 84154; 84484; 85025; 85379; 85610; 85730; 87040; 87070; 87205; 93005; 93017; 93306; 94640; 94667; 94668; 94761; 96361; 96365; 96367; 96375; G0378; J0153; J0171; J0696; J2250

== ENCOUNTER → 2019-02-27 | Day surgery (SDC) | payer MEDICARE, MEDICAID ==
[2019-02-23 12:53] LABS: Basophils # (auto) 0.1 uL; Basophils % (auto) 1.5 % (0.0-2.0); Eosinophils # (auto) 0.3 uL; Hematocrit 40.1 % (41.0-53.0); Hemoglobin 13.4 g/dL (13.5-17.5); Lymphocytes # (auto) 1.8 uL; Lymphocytes % (auto) 33.5 % (10.0-50.0); Mean Corpuscular Hemoglobin 30.8 pg (28.0-32.0); Mean Corpuscular Hgb Conc. 33.5 g/dL (32.0-36.0); Mean Corpuscular Volume 92.1 fL (80.0-100.0); Monocytes # (auto) 0.6 uL; Monocytes % (auto) 10.5 % (0.0-12.0); Neutrophils # (auto) 2.7 uL; Neutrophils % (auto) 49.5 % (37.0-80.0); Nucleated Red Blood Cells % 0.1 %; Platelet Count (auto) 174 10^3/uL (140-450); Red Blood Cells 4.36 10^6/uL (4.5-5.90); Red Cell Distribution Width 13.9 % (11.8-14.3); White Blood Cell 5.4 10^3/uL (4.4-10.8)
[2019-02-23 13:03] LABS: Urine Bacteria NONE SEEN /hpf (None Seen); Urine Blood Negative /uL (Negative); Urine Specific Gravity 1.009 (1.001-1.035); Urine WBC <1 /hpf (0 - 3)
[2019-02-23 13:10] LABS: INR 1.04 (0.9-1.15); Partial Thromboplastin Time 28.2 sec (23.64-32.05)
[2019-02-23 13:14] LABS: Albumin 4.2 g/dL (3.4-5.0); Calcium 9.3 mg/dL (8.5-10.1); Potassium 4.3 mmol/L (3.5-5.1)
[2019-02-23 13:16] LABS: BUN/Creatinine Ratio 12.6
[2019-02-23 13:19] LABS: Bilirubin, Total 0.7 mg/dL (0.2-1.0); Total Protein 7.4 g/dL (6.4-8.2)
[~2019-02-27] VITALS: Ht 170.2 cm; Wt 83.9 kg
[~2019-02-27] MED LIST changes: +ALBUAER3 IN; -ALBUTEROL SULF 2.5 MG/0.5ML(0.5%) NEB SOLN ONE; +ASP81EC PO; +DOXA4TAB40 PO; +FLUT1SPR5; +LIDOCAINE 2% JELLY 11ml (GLYDO) ONE; +LISI40TA PO; +NIFE90TA30 PO; +RANI150C11 PO; +[UNRECOGNIZED DRUG - CODE] PO
== END | disposition home or self-care (01) ==
LOC: SUR 07:18
PROVIDERS: ATTEND Urology
DX: D49.4 Neoplasm of unspecified behavior of bladder (principal); I10 Essential (primary) hypertension; J44.9 Chronic obstructive pulmonary disease, unspecified; I11.9 Hypertensive heart disease without heart failure; I43 Cardiomyopathy in diseases classified elsewhere; Z79.899 Other long term (current) drug therapy; Z53.8 Procedure and treatment not carried out for other reasons
CPT/HCPCS: 36415; 80053; 81001; 85025; 85610; 85730

== ENCOUNTER 2019-05-01 10:00 | Day surgery (SDC) | payer MEDICARE, MEDICAID ==
[2019-04-27 10:28] LABS: Basophils # (auto) 0 uL; Basophils % (auto) 0.9 % (0.0-2.0); Eosinophils # (auto) 0.1 uL; Eosinophils % (auto) 1.3 % (0.0-7.0); Hematocrit 40.6 % (41.0-53.0); Hemoglobin 13.5 g/dL (13.5-17.5); Lymphocytes # (auto) 1.8 uL; Lymphocytes % (auto) 32.7 % (10.0-50.0); Mean Corpuscular Hemoglobin 30.3 pg (28.0-32.0); Mean Corpuscular Hgb Conc. 33.2 g/dL (32.0-36.0); Mean Corpuscular Volume 91.4 fL (80.0-100.0); Monocytes # (auto) 0.6 uL; Monocytes % (auto) 10.9 % (0.0-12.0); Neutrophils # (auto) 3.1 uL; Neutrophils % (auto) 54.2 % (37.0-80.0); Platelet Count (auto) 161 10^3/uL (140-450); Red Blood Cells 4.44 10^6/uL (4.5-5.90); Red Cell Distribution Width 13.9 % (11.8-14.3); White Blood Cell 5.7 10^3/uL (4.4-10.8)
[2019-04-27 10:31] LABS: Urine Bacteria NONE SEEN /hpf (None Seen); Urine Blood Negative /uL (Negative); Urine Mucus FEW (None Seen); Urine Specific Gravity 1.007 (1.001-1.035); Urine WBC 4 /hpf (0 - 3)
[2019-04-27 10:42] LABS: INR 1.04 (0.9-1.15); Partial Thromboplastin Time 29.1 sec (23.64-32.05)
[2019-04-27 11:54] LABS: Potassium 3.9 mmol/L (3.5-5.1)
[2019-04-27 12:01] LABS: Albumin 3.9 g/dL (3.4-5.0); BUN/Creatinine Ratio 19.4; Bilirubin, Total 0.7 mg/dL (0.2-1.0); Calcium 8.8 mg/dL (8.5-10.1); Total Protein 7.3 g/dL (6.4-8.2)
[~2019-05-01] VITALS: Ht 167.6 cm; Wt 83.9 kg
[~2019-05-01 10:00] MED LIST changes: -ALBUAER3 IN; -DOXA4TAB40 PO; +DOXA4TAB5 PO; -LIDOCAINE 2% JELLY 11ml (GLYDO) ONE
[2019-05-01] MEDS ORDERED: CIPROFLOXACIN 400MG/200ML 200 ML IV ONE (10:40)
[2019-05-01] MEDS ORDERED: HYDROmorphone HCL 2 MG/ML VL IV PRN (11:00)
[2019-05-01] MEDS ORDERED: ONDANSETRON HCL 4 MG/2 ML VIAL IV ONE (11:00)
[2019-05-01] MEDS ORDERED: ePHEDrine SULFATE 50 MG/ML AMP IV PRN (11:00)
[2019-05-01] MEDS ORDERED: fentaNYL CITRATE 100 MCG/2 ML VL IV ONE (11:00)
[2019-05-01] MEDS ORDERED: LABETALOL HCL 5 MG/ML 4ML SYRINGE IV PRN (11:00)
[2019-05-01] MEDS ORDERED: MIDAZOLAM HCL 1MG/1ML-2 ML VIAL IV PRN (11:00)
[2019-05-01] MEDS ORDERED: SUCCINYLCHOLINE CHLORIDE 20 MG/ML 10ML VIAL IV ONE (11:02)
[2019-05-01] MEDS ORDERED: LIDOCAINE 2% JELLY 11ml (GLYDO) ONE (11:07)
[2019-05-01] MEDS ORDERED: fentaNYL CITRATE 100 MCG/2 ML VL ONE (11:20)
[2019-05-01] MEDS ORDERED: MEPERIDINE HCL (25 MG/ML) 1ML VIAL ONE (11:20)
[2019-05-01] MEDS ORDERED: MIDAZOLAM HCL 1MG/1ML-2 ML VIAL ONE (11:20)
[2019-05-01] MEDS ORDERED: BENZOCAINE (DENTAL) 20 % SPRAY 60ML MT ONE (11:21)
[2019-05-01] MEDS ORDERED: DexAMETHasone SOD PHOS 10MG/1ML VIAL INJ ONE (11:28)
[2019-05-01] MEDS ORDERED: PROPOFOL 10 MG/ML 20 ML IV ONE (11:28)
[2019-05-01] MEDS ORDERED: KETOROLAC TROMETH 30 MG/ML 1ML VIAL ONE (11:32)
[2019-05-01] MEDS ORDERED: MORPHINE SULFATE 4 MG/ML SYR/VIAL IV ONE (12:00)
[2019-05-01 13:45] VITALS: BP 129/82
== END 2019-05-01 13:45 | disposition home or self-care (01) ==
LOC: SUR 10:00
PROVIDERS: ATTEND Urology
DX: N30.80 Other cystitis without hematuria (principal); N32.89 Other specified disorders of bladder; I10 Essential (primary) hypertension; I25.10 Atherosclerotic heart disease of native coronary artery without angina pectoris; E78.5 Hyperlipidemia, unspecified; Z79.899 Other long term (current) drug therapy; Z87.891 Personal history of nicotine dependence; Z86.73 Personal history of transient ischemic attack (TIA), and cerebral infarction without residual deficits; Z90.49 Acquired absence of other specified parts of digestive tract; Z98.890 Other specified postprocedural states; Z98.49 Cataract extraction status, unspecified eye
CPT/HCPCS: 36415; 52204; 52240; 80053; 81001; 85025; 85610; 85730; 88305; J0330; J0744; J1100; J1885; J2175; J2250; J2704; J3010

== ENCOUNTER 2019-05-11 19:56 | Emergency (ER) | payer MEDICARE, MEDICAID ==
[~2019-05-11] VITALS: Ht 172.7 cm; Wt 83.9 kg
[2019-05-11 21:21] LABS: Basophils # (auto) 0 uL; Basophils % (auto) 0.4 % (0.0-2.0); Eosinophils # (auto) 0.1 uL; Eosinophils % (auto) 0.9 % (0.0-7.0); Hematocrit 39.4 % (41.0-53.0); Hemoglobin 13.5 g/dL (13.5-17.5); Lymphocytes # (auto) 1.1 uL; Lymphocytes % (auto) 12.1 % (10.0-50.0); Mean Corpuscular Hemoglobin 31.1 pg (28.0-32.0); Mean Corpuscular Hgb Conc. 34.3 g/dL (32.0-36.0); Mean Corpuscular Volume 90.9 fL (80.0-100.0); Monocytes # (auto) 0.9 uL; Monocytes % (auto) 9.6 % (0.0-12.0); Neutrophils # (auto) 7.1 uL; Nucleated Red Blood Cells % 0.1 %; Platelet Count (auto) 192 10^3/uL (140-450); Red Blood Cells 4.33 10^6/uL (4.5-5.90); Red Cell Distribution Width 13.7 % (11.8-14.3); White Blood Cell 9.2 10^3/uL (4.4-10.8)
[2019-05-11 21:41] LABS: Calcium 9.2 mg/dL (8.5-10.1); Potassium 3.8 mmol/L (3.5-5.1)
[2019-05-11 21:45] LABS: BUN/Creatinine Ratio 13.3; Bilirubin, Total 1.1 mg/dL (0.2-1.0); Total Protein 7.6 g/dL (6.4-8.2)
[2019-05-11 22:00] LABS: Urine Bacteria NONE SEEN /hpf (None Seen); Urine Blood 1+ /uL (Negative); Urine Mucus FEW (None Seen); Urine Specific Gravity 1.015 (1.001-1.035); Urine WBC 16 /hpf (0 - 3)
[2019-05-12 01:38] VITALS: BP 107/73
[2019-05-12] MEDS ORDERED: MAGNESIUM CITRATE SOLUTION 300 ML BTL PO ONE (02:15)
== END 2019-05-12 03:06 | disposition home or self-care (01) ==
LOC: ER 19:56
DX: N39.0 Urinary tract infection, site not specified (principal); J45.909 Unspecified asthma, uncomplicated; Z79.899 Other long term (current) drug therapy
CPT/HCPCS: 36415; 74018; 80053; 81001; 85025; 93005

== ENCOUNTER → 2019-10-19 | Outpatient (CLI) | payer MEDICARE, MEDICAID ==
[~2019-10-19] MED LIST changes: -NIFE90TA30 PO; +NIFE90TA49 PO
== END | disposition home or self-care (01) ==
LOC: XYW 09:25
PROVIDERS: ATTEND Internal Medicine
DX: I07.1 Rheumatic tricuspid insufficiency (principal); I35.1 Nonrheumatic aortic (valve) insufficiency; I34.0 Nonrheumatic mitral (valve) insufficiency
CPT/HCPCS: 93306

== ENCOUNTER → 2020-12-16 | Outpatient (CLI) | payer MEDICARE, MEDICAID ==
[~2020-12-16] MED LIST changes: -ASP81EC PO; +ASPI-394 PO; +DUTA1CAP29 PO; -LISI40TA PO; +LISI40TA11 PO; -[UNRECOGNIZED DRUG - CODE] PO
[2020-12-16 10:12] LABS: Basophils # (auto) 0 10 ^3/uL (0-0.2); Basophils % (auto) 0.5 % (0.0-2.0); Eosinophils # (auto) 0.3 10 ^3/uL (0-0.8); Eosinophils % (auto) 4.5 % (0.0-7.0); Hematocrit 38.4 % (41.0-53.0); Hemoglobin 13.1 g/dL (13.5-17.5); Lymphocytes # (auto) 1.6 10 ^3/uL (0.4-5.4); Mean Corpuscular Hemoglobin 30.9 pg (28.0-32.0); Mean Corpuscular Hgb Conc. 34.1 g/dL (32.0-36.0); Mean Corpuscular Volume 90.5 fL (80.0-100.0); Monocytes # (auto) 0.5 10 ^3/uL (0-1.3); Monocytes % (auto) 8.3 % (0.0-12.0); Neutrophils # (auto) 3.4 10 ^3/uL (1.6-8.6); Neutrophils % (auto) 59.7 % (37.0-80.0); Nucleated Red Blood Cells % 0.1 %; Platelet Count (auto) 173 10^3/uL (140-450); Red Blood Cells 4.25 10^6/uL (4.5-5.90); Red Cell Distribution Width 13.6 % (11.8-14.3); White Blood Cell 5.7 10^3/uL (4.4-10.8)
[2020-12-16 10:25] LABS: Potassium 3.5 mmol/L (3.5-5.1)
[2020-12-16 10:30] LABS: BUN/Creatinine Ratio 14.8; Bilirubin, Total 0.5 mg/dL (0.2-1.0); Total Protein 7.2 g/dL (6.4-8.2)
== END | disposition home or self-care (01) ==
LOC: LAB 09:23
PROVIDERS: ATTEND Physician Assistant
DX: I10 Essential (primary) hypertension (principal); I48.91 Unspecified atrial fibrillation; I42.9 Cardiomyopathy, unspecified; R97.20 Elevated prostate specific antigen [PSA]
CPT/HCPCS: 36415; 80053; 80061; 84153; 85025

== ENCOUNTER → 2021-01-10 | Outpatient (CLI) | payer MEDICARE, MEDICAID | END | disposition home or self-care (01) | LOC: Rad HDHVI 14:41 | PROVIDERS: ATTEND Internal Medicine Cardiovascular Disease | DX: I10 Essential (primary) hypertension (principal); I42.9 Cardiomyopathy, unspecified | CPT/HCPCS: 93306 ==

== ENCOUNTER → 2021-01-15 | Outpatient (CLI) | payer MEDICARE, MEDICAID ==
[~2021-01-15] VITALS: Ht 165.1 cm; Wt 88.9 kg
== END | disposition home or self-care (01) ==
LOC: Rad HDHVI 08:22
PROVIDERS: ATTEND Internal Medicine Cardiovascular Disease
DX: Z01.810 Encounter for preprocedural cardiovascular examination (principal); J44.9 Chronic obstructive pulmonary disease, unspecified; I10 Essential (primary) hypertension; I42.9 Cardiomyopathy, unspecified
CPT/HCPCS: 78452; 93017; 96374; A9500

== ENCOUNTER 2021-01-27 07:26 | Day surgery (SDC) | payer MEDICARE, MEDICAID ==
[2021-01-23 12:23] LABS: Basophils # (auto) 0.1 10 ^3/uL (0-0.2); Basophils % (auto) 0.7 % (0.0-2.0); Eosinophils # (auto) 0.1 10 ^3/uL (0-0.8); Eosinophils % (auto) 1.2 % (0.0-7.0); Hematocrit 41.3 % (41.0-53.0); Hemoglobin 13.8 g/dL (13.5-17.5); Lymphocytes # (auto) 1.7 10 ^3/uL (0.4-5.4); Lymphocytes % (auto) 18.5 % (10.0-50.0); Mean Corpuscular Hemoglobin 30.5 pg (28.0-32.0); Mean Corpuscular Hgb Conc. 33.3 g/dL (32.0-36.0); Mean Corpuscular Volume 91.6 fL (80.0-100.0); Monocytes # (auto) 0.8 10 ^3/uL (0-1.3); Monocytes % (auto) 9.3 % (0.0-12.0); Neutrophils # (auto) 6.3 10 ^3/uL (1.6-8.6); Neutrophils % (auto) 70.3 % (37.0-80.0); Red Blood Cells 4.51 10^6/uL (4.5-5.90); Red Cell Distribution Width 13.9 % (11.8-14.3)
[2021-01-23 12:45] LABS: INR 1.07 (0.9-1.15); Partial Thromboplastin Time 28.8 sec (23.0-31.2)
[2021-01-23 13:02] LABS: Albumin 4.2 g/dL (3.4-5.0); Calcium 9.1 mg/dL (8.5-10.1); Potassium 3.9 mmol/L (3.5-5.1)
[2021-01-23 13:11] LABS: BUN/Creatinine Ratio 15.8; Bilirubin, Total 0.8 mg/dL (0.2-1.0); Total Protein 7.6 g/dL (6.4-8.2)
[2021-01-24 11:26] LABS: Urine Bacteria NONE SEEN /hpf (None Seen); Urine Blood Negative /uL (Negative); Urine Specific Gravity 1.015 (1.001-1.035); Urine WBC <1 /hpf (0 - 3)
[~2021-01-27] VITALS: Ht 195.6 cm; Wt 88.9 kg
[~2021-01-27 07:26] MED LIST changes: -DOXA4TAB5 PO; +DOXA4TAB6 PO; +OMEP20TA PO; -RANI150C11 PO
[2021-01-27] MEDS ORDERED: CIPROFLOXACIN 400MG/200ML 200 ML IV ONE (08:21)
[2021-01-27] MEDS ORDERED: ONDANSETRON HCL 4 MG/2 ML VIAL ONE (10:30)
[2021-01-27] MEDS ORDERED: LIDOCAINE 2% (LOCAL ANESTH.) PF 5ml SDV ONE (10:30)
[2021-01-27] MEDS ORDERED: PROPOFOL 10 MG/ML 20 ML IV ONE (10:30)
[2021-01-27] MEDS ORDERED: fentaNYL CITRATE 100 MCG/2 ML VL ONE (10:30)
[2021-01-27] MEDS ORDERED: MIDAZOLAM HCL 2MG/2ML 2ml VIAL (1mg/ml) ONE (10:30)
[2021-01-27] MEDS ORDERED: HYDROmorphone HCL 2 MG/ML VL IV PRN (11:00)
[2021-01-27] MEDS ORDERED: ONDANSETRON HCL 4 MG/2 ML VIAL IV PRN (11:00)
[2021-01-27 11:20] VITALS: BP 133/80
[2021-03-10] MEDS ORDERED: BICA50TA13 PO (16:31)
== END 2021-01-27 11:45 | disposition home or self-care (01) ==
LOC: SUR 07:26
PROVIDERS: ATTEND Urology
DX: R97.20 Elevated prostate specific antigen [PSA] (principal); C61 Malignant neoplasm of prostate; K21.9 Gastro-esophageal reflux disease without esophagitis; K27.9 Peptic ulcer, site unspecified, unspecified as acute or chronic, without hemorrhage or perforation; N40.0 Benign prostatic hyperplasia without lower urinary tract symptoms; J45.909 Unspecified asthma, uncomplicated; I10 Essential (primary) hypertension; Z20.822 Contact with and (suspected) exposure to COVID-19; Z87.891 Personal history of nicotine dependence; Z98.890 Other specified postprocedural states; Z79.899 Other long term (current) drug therapy
CPT/HCPCS: 36415; 55700; 80053; 81001; 85025; 85610; 85730; 88305; 88342; J0744; J2001; J2250; J2405; J2704; J3010; U0003; 76872

== ENCOUNTER → 2021-02-28 | Outpatient (CLI) | payer MEDICARE, MEDICAID ==
[~2021-02-28] MED LIST changes: +BICA50TA13 PO; +DOXA4TAB5 PO; -DOXA4TAB6 PO
== END | disposition home or self-care (01) ==
LOC: XYW 08:21
PROVIDERS: ATTEND Urology
DX: C61 Malignant neoplasm of prostate (principal)
CPT/HCPCS: 78306; A9503

== ENCOUNTER 2021-03-13 09:25 | Day surgery (SDC) | payer MEDICARE, MEDICAID ==
[2021-03-10 12:55] LABS: Basophils # (auto) 0 10 ^3/uL (0-0.2); Basophils % (auto) 0.5 % (0.0-2.0); Eosinophils # (auto) 0.1 10 ^3/uL (0-0.8); Eosinophils % (auto) 1.8 % (0.0-7.0); Hematocrit 39.7 % (41.0-53.0); Hemoglobin 13.6 g/dL (13.5-17.5); Lymphocytes # (auto) 1.5 10 ^3/uL (0.4-5.4); Mean Corpuscular Hemoglobin 31.3 pg (28.0-32.0); Mean Corpuscular Hgb Conc. 34.2 g/dL (32.0-36.0); Mean Corpuscular Volume 91.6 fL (80.0-100.0); Monocytes # (auto) 0.8 10 ^3/uL (0-1.3); Monocytes % (auto) 12.2 % (0.0-12.0); Neutrophils # (auto) 4.2 10 ^3/uL (1.6-8.6); Neutrophils % (auto) 63.5 % (37.0-80.0); Nucleated Red Blood Cells % 0.1 %; Platelet Count (auto) 178 10^3/uL (140-450); Red Blood Cells 4.33 10^6/uL (4.5-5.90); Red Cell Distribution Width 14.2 % (11.8-14.3); White Blood Cell 6.7 10^3/uL (4.4-10.8)
[2021-03-10 13:11] LABS: INR 1.06 (0.9-1.15); Partial Thromboplastin Time 27.9 sec (23.0-31.2)
[2021-03-10 13:29] LABS: Albumin 3.8 g/dL (3.4-5.0); Calcium 8.9 mg/dL (8.5-10.1); Potassium 3.6 mmol/L (3.5-5.1)
[2021-03-10 13:33] LABS: BUN/Creatinine Ratio 13.7; Bilirubin, Total 0.7 mg/dL (0.2-1.0); Total Protein 7.4 g/dL (6.4-8.2)
[~2021-03-13] VITALS: Ht 167.6 cm; Wt 87.5 kg
[~2021-03-13 09:25] MED LIST changes: -NIFE90TA49 PO; -OMEP20TA PO
[2021-03-13] MEDS ORDERED: SODIUM CHLORIDE LOCK 10 ML ONE (11:26)
[2021-03-13] MEDS ORDERED: fentaNYL CITRATE 100 MCG/2 ML VL ONE (11:27)
[2021-03-13] MEDS ORDERED: diphenhdrAMINE HCL 50 MG/1 ML VL ONE (11:27)
[2021-03-13] MEDS ORDERED: MIDAZOLAM HCL 5 MG/ML-1ML VIAL ONE (11:27)
[2021-03-13 13:00] VITALS: BP 139/80
== END 2021-03-13 13:05 | disposition home or self-care (01) ==
LOC: GI 09:25
PROVIDERS: ATTEND Internal Medicine Gastroenterology
DX: K59.00 Constipation, unspecified (principal); K57.30 Diverticulosis of large intestine without perforation or abscess without bleeding; K64.8 Other hemorrhoids; J45.909 Unspecified asthma, uncomplicated; E66.9 Obesity, unspecified; F17.200 Nicotine dependence, unspecified, uncomplicated; Z20.822 Contact with and (suspected) exposure to COVID-19; Z85.46 Personal history of malignant neoplasm of prostate; Z79.899 Other long term (current) drug therapy; Z98.890 Other specified postprocedural states; Z68.31 Body mass index [BMI] 31.0-31.9, adult
CPT/HCPCS: 36415; 45378; 80053; 85025; 85610; 85730; J1200; J2250; J3010; J7030; U0003

== ENCOUNTER → 2021-11-11 | Outpatient (CLI) | payer MEDICARE, MEDICAID ==
[~2021-11-11] MED LIST changes: -DOXA4TAB5 PO; +DOXA4TAB6 PO
[2021-11-11 12:42] LABS: Basophils # (auto) 0 10 ^3/uL (0-0.2); Basophils % (auto) 0.8 % (0.0-2.0); Eosinophils # (auto) 0.2 10 ^3/uL (0-0.8); Eosinophils % (auto) 3.6 % (0.0-7.0); Hematocrit 37.4 % (41.0-53.0); Hemoglobin 12.7 g/dL (13.5-17.5); Lymphocytes % (auto) 23.3 % (10.0-50.0); Mean Corpuscular Hemoglobin 31.1 pg (28.0-32.0); Mean Corpuscular Hgb Conc. 33.9 g/dL (32.0-36.0); Mean Corpuscular Volume 91.8 fL (80.0-100.0); Monocytes # (auto) 0.4 10 ^3/uL (0-1.3); Monocytes % (auto) 9.5 % (0.0-12.0); Neutrophils # (auto) 2.8 10 ^3/uL (1.6-8.6); Neutrophils % (auto) 62.8 % (37.0-80.0); Nucleated Red Blood Cells % 0.1 %; Red Blood Cells 4.07 10^6/uL (4.5-5.90); Red Cell Distribution Width 13.4 % (11.8-14.3); White Blood Cell 4.4 10^3/uL (4.4-10.8)
[2021-11-11 12:50] LABS: Potassium 3.5 mmol/L (3.5-5.1)
[2021-11-11 13:09] LABS: Albumin 3.9 g/dL (3.4-5.0); BUN/Creatinine Ratio 18.7; Bilirubin, Total 0.8 mg/dL (0.2-1.0); Calcium 9.3 mg/dL (8.5-10.1); Total Protein 7.5 g/dL (6.4-8.2)
== END | disposition home or self-care (01) ==
LOC: LAB 09:42
PROVIDERS: ATTEND Urology
DX: C61 Malignant neoplasm of prostate (principal); Z00.00 Encounter for general adult medical examination without abnormal findings; N40.0 Benign prostatic hyperplasia without lower urinary tract symptoms; J44.9 Chronic obstructive pulmonary disease, unspecified; I10 Essential (primary) hypertension
CPT/HCPCS: 36415; 80053; 80061; 84153; 85025

== ENCOUNTER 2021-12-08 10:15 | Inpatient (IN) | payer MEDICARE, MEDICAID ==
[~2021-12-08] VITALS: Ht 170.2 cm; Wt 80.2 kg
[2021-12-08 15:32] LABS: Basophils # (auto) 0.1 10 ^3/uL (0-0.2); Basophils % (auto) 0.9 % (0.0-2.0); Eosinophils # (auto) 0 10 ^3/uL (0-0.8); Eosinophils % (auto) 0.1 % (0.0-7.0); Hematocrit 37.2 % (41.0-53.0); Hemoglobin 12.4 g/dL (13.5-17.5); Lymphocytes % (auto) 12.4 % (10.0-50.0); Mean Corpuscular Hemoglobin 30.9 pg (28.0-32.0); Mean Corpuscular Hgb Conc. 33.3 g/dL (32.0-36.0); Mean Corpuscular Volume 92.7 fL (80.0-100.0); Monocytes # (auto) 0.6 10 ^3/uL (0-1.3); Monocytes % (auto) 7.5 % (0.0-12.0); Neutrophils # (auto) 6.2 10 ^3/uL (1.6-8.6); Neutrophils % (auto) 79.1 % (37.0-80.0); Nucleated Red Blood Cells % 0.1 %; Red Blood Cells 4.01 10^6/uL (4.5-5.90); Red Cell Distribution Width 13.4 % (11.8-14.3); White Blood Cell 7.8 10^3/uL (4.4-10.8)
[2021-12-08 15:47] LABS: Albumin 3.7 g/dL (3.4-5.0); Calcium 9.1 mg/dL (8.5-10.1); Magnesium 2.9 mg/dL (1.6-2.6)
[2021-12-08 15:51] LABS: Bilirubin, Total 0.8 mg/dL (0.2-1.0); Total Protein 7.1 g/dL (6.4-8.2)
[2021-12-08] MEDS ORDERED: NITROGLYCERIN 0.4 MG SL TAB SL PRN (16:15)
[2021-12-08] MEDS ORDERED: DEXTROSE (50%) 50ML SYRG IV PRN (16:15)
[2021-12-08] MEDS ORDERED: MORPHINE SULFATE INJECTION 2 MG/ML SYRG IV PRN (16:15)
[2021-12-08] MEDS: HYDROcodone-ACET 5/325MG TAB PO ONE ×2 (16:38→16:42)
[2021-12-08] MEDS: ACCU-CHEK COMFORT CURVE STRIP VI SCH ×2 (17:05→22:16)
[2021-12-08] MEDS: InsuLIN REG 1unit/0.01ml Soln (100units/ml) SC SCH ×2 (17:18→22:31)
[2021-12-08] MEDS ORDERED: HYDROcodone-ACET 5/325MG TAB PO PRN (22:45)
[2021-12-09 02:01] LABS: INR 1.08 (0.9-1.15); Partial Thromboplastin Time 28.3 sec (23.6-33.0)
[2021-12-09 02:15] LABS: Urine Bacteria NONE SEEN /hpf (None Seen); Urine Blood Negative /uL (Negative); Urine Mucus FEW (None Seen); Urine Specific Gravity 1.027 (1.001-1.035); Urine WBC 1 /hpf (0 - 3)
[2021-12-09 02:18] LABS: Alcohol, Urine < 3.0 mg/dL (0-10); Amphetamine Screen, Urine NEGATIVE (NEGATIVE); Barbiturate Scree,Urine NEGATIVE (NEGATIVE); Benzodiazephine Screen, Urine NEGATIVE (NEGATIVE); Cannabinoid Screen, Urine NEGATIVE (NEGATIVE); Cocaine Screen, Urine NEGATIVE (NEGATIVE); Opiate Scree,Urine POSITIVE (NEGATIVE); Phencyclidine Screen, Urine NEGATIVE (NEGATIVE)
[2021-12-09 02:18] LABS: Magnesium 2.7 mg/dL (1.6-2.6)
[2021-12-09 02:36] LABS: Phosphorus 3.8 mg/dL (2.5-4.90)
[2021-12-09] MEDS ORDERED: MULTIPLE VITAMINS W/ MINERALS TAB PO ONE (03:15)
[2021-12-09] MEDS ORDERED: SUCRALFATE 1 GM/10 ML ORAL SUSP PO ONE (03:15)
[2021-12-09] MEDS ORDERED: BUDESONIDE (INHALATION) 0.5 MG/2 ML NEB NEB ONE (03:15)
[2021-12-09] MEDS ORDERED: FOLIC ACID 1 MG TAB PO ONE (03:15)
[2021-12-09] MEDS ORDERED: PANTOPRAZOLE 40 MG/10 ML VIAL INJ IV ONE (03:15)
[2021-12-09] MEDS ORDERED: ONDANSETRON HCL 4 MG/2 ML VIAL IV PRN (03:15)
[2021-12-09] MEDS ORDERED: HYDROcodone-ACET 5/325MG TAB PO ONE (03:15)
[2021-12-09] MEDS ORDERED: PROMETHAZINE-DM 5 ML ORAL SYRUP PO PRN (03:15)
[2021-12-09] MEDS ORDERED: HYDROcodone-ACET 5/325MG TAB PO PRN (03:15)
[2021-12-09] MEDS ORDERED: MONTELUKAST SODIUM 10 MG TAB PO ONE (03:15)
[2021-12-09] MEDS ORDERED: levoFLOXacin 750MG 150 ML IV ONE (03:15)
[2021-12-09] MEDS ORDERED: MORPHINE SULFATE INJECTION 2 MG/ML SYRG IV PRN (03:15)
[2021-12-09] MEDS ORDERED: IPRATROPIUM BROM 0.5 MG/2.5ML INH SOL NEB ONE (03:15)
[2021-12-09] MEDS ORDERED: DEXTROSE (50%) 50ML SYRG IV PRN (03:30)
[2021-12-09] MEDS ORDERED: BENAZEPRIL HCL 10 MG TAB PO ONE (03:30)
[2021-12-09] MEDS ORDERED: LABETALOL HCL 5 MG/ML 4ML SYRINGE IV PRN (03:30)
[2021-12-09 05:00] VITALS: BP 168/82
[2021-12-09] MEDS ORDERED: IPRATROPIUM BROM 0.5 MG/2.5ML INH SOL NEB SCH (06:00)
[2021-12-09] MEDS ORDERED: ACETYLCYSTEINE 10 %(100MG/ML) SOL 4ML NEB PRN (06:00)
[2021-12-09] MEDS ORDERED: ACETYLCYSTEINE 10 %(100MG/ML) SOL 4ML NEB SCH (06:00)
[2021-12-09 06:16] LABS: Basophils # (auto) 0 10 ^3/uL (0-0.2); Basophils % (auto) 0.7 % (0.0-2.0); Eosinophils # (auto) 0 10 ^3/uL (0-0.8); Eosinophils % (auto) 0.8 % (0.0-7.0); Hematocrit 32.5 % (41.0-53.0); Hemoglobin 11.5 g/dL (13.5-17.5); Lymphocytes # (auto) 1.1 10 ^3/uL (0.4-5.4); Lymphocytes % (auto) 21.2 % (10.0-50.0); Mean Corpuscular Hemoglobin 32.2 pg (28.0-32.0); Mean Corpuscular Hgb Conc. 35.3 g/dL (32.0-36.0); Mean Corpuscular Volume 91.3 fL (80.0-100.0); Monocytes # (auto) 0.6 10 ^3/uL (0-1.3); Monocytes % (auto) 11.4 % (0.0-12.0); Neutrophils # (auto) 3.5 10 ^3/uL (1.6-8.6); Neutrophils % (auto) 65.9 % (37.0-80.0); Nucleated Red Blood Cells % 0.2 %; Red Blood Cells 3.56 10^6/uL (4.5-5.90); Red Cell Distribution Width 13.7 % (11.8-14.3); White Blood Cell 5.3 10^3/uL (4.4-10.8)
[2021-12-09 06:35] LABS: Potassium 3.5 mmol/L (3.5-5.1)
[2021-12-09 06:36] LABS: INR 1.11 (0.9-1.15); Partial Thromboplastin Time 29.1 sec (23.6-33.0)
[2021-12-09] MEDS: SUCRALFATE 1 GM/10 ML ORAL SUSP PO SCH ×4 (06:49→21:26)
[2021-12-09] MEDS: ACCU-CHEK COMFORT CURVE STRIP VI SCH ×4 (06:50→21:12)
[2021-12-09] MEDS: InsuLIN REG 1unit/0.01ml Soln (100units/ml) SC SCH ×4 (06:55→21:12)
[2021-12-09 06:57] LABS: Albumin 3.1 g/dL (3.4-5.0); BUN/Creatinine Ratio 24.5; Bilirubin, Total 1.1 mg/dL (0.2-1.0); CRP High Sensitivity 2.38 mg/dL (< 0.3); Calcium 8.4 mg/dL (8.5-10.1); Magnesium 2.6 mg/dL (1.6-2.6); Phosphorus 4.2 mg/dL (2.5-4.90); Total Protein 6.1 g/dL (6.4-8.2); Uric Acid 5.3 mg/dL (3.5-7.2)
[2021-12-09] MEDS: BUDESONIDE (INHALATION) 0.5 MG/2 ML NEB NEB SCH ×2 (07:06→20:30)
[2021-12-09 09:00] VITALS: BP 145/83
[2021-12-09] MEDS: PANTOPRAZOLE 40 MG/10 ML VIAL INJ IV SCH (09:04)
[2021-12-09] MEDS: ASPirin 81 mg TAB PO SCH (09:05)
[2021-12-09] MEDS: FOLIC ACID 1 MG TAB PO SCH (09:05)
[2021-12-09] MEDS: ENOXAPARIN SOD 40 MG/0.4 ML SYRINGE SC SCH (09:06)
[2021-12-09] MEDS: CYANOCOBALAMIN 500 MCG TAB PO SCH (09:06)
[2021-12-09] MEDS: FINASTERIDE 5 MG TAB PO SCH (09:06)
[2021-12-09] MEDS: CHOLECALCIFEROL (VITD3) 2,000 UNIT CAP/TAB PO SCH (09:06)
[2021-12-09] MEDS: MULTIPLE VITAMINS W/ MINERALS TAB PO SCH (09:06)
[2021-12-09] MEDS: Bicalutamide 50 MG TAB PO SCH (09:48)
[2021-12-09] MEDS: FLUTICASONE PROP NASAL SPR 0.05 % (50MCG) 16GM EACHNOSTRI SCH ×2 (09:49→21:26)
[2021-12-09] MEDS: MORPHINE SULFATE 4 MG/ML SYR/VIAL IV PRN (09:49)
[2021-12-09] MEDS ORDERED: BENAZEPRIL HCL 10 MG TAB PO SCH (10:00)
[2021-12-09] MEDS: traMADol HCL 50 MG TAB PO SCH ×2 (12:20→17:41)
[2021-12-09 12:22] VITALS: BP 134/81
[2021-12-09 13:00] VITALS: BP 160/90
[2021-12-09] MEDS: ERGOCALCIFEROL 50,000 UNIT(1.25MG) CAP PO SCH (15:30)
[2021-12-09] MEDS: hydrALAZINE HCL 20 MG/ML VL IV PRN (15:41)
[2021-12-09 16:40] VITALS: BP 151/79
[2021-12-09] MEDS: IPRATROPIUM BROM 0.5 MG/2.5ML INH SOL NEB PRN (20:30)
[2021-12-09] MEDS: DOXAZOSIN MESYL 2 MG TAB PO SCH (21:27)
[2021-12-09] MEDS: DOCUSATE SOD 100 MG CAP PO PRN (21:28)
[2021-12-09] MEDS: MONTELUKAST SODIUM 10 MG TAB PO SCH (21:28)
[2021-12-09] MEDS: ATORVASTATIN 20 MG TAB PO SCH (21:28)
[2021-12-09] MEDS: LORazepam 0.5 MG TAB PO PRN (21:29)
[2021-12-09 22:00] VITALS: BP 143/84
[2021-12-10] MEDS: traMADol HCL 50 MG TAB PO SCH ×4 (00:13→17:21)
[2021-12-10] MEDS: levoFLOXacin 750MG 150 ML IV SCH (02:14)
[2021-12-10 05:00] VITALS: BP 148/83
[2021-12-10] MEDS: InsuLIN REG 1unit/0.01ml Soln (100units/ml) SC SCH ×4 (06:00→21:32)
[2021-12-10] MEDS: ACCU-CHEK COMFORT CURVE STRIP VI SCH ×4 (06:01→21:32)
[2021-12-10] MEDS: SUCRALFATE 1 GM/10 ML ORAL SUSP PO SCH ×4 (06:01→21:31)
[2021-12-10] MEDS: BUDESONIDE (INHALATION) 0.5 MG/2 ML NEB NEB SCH ×2 (06:22→21:52)
[2021-12-10] MEDS: IPRATROPIUM BROM 0.5 MG/2.5ML INH SOL NEB PRN ×2 (06:23→21:52)
[2021-12-10] MEDS: MORPHINE SULFATE 4 MG/ML SYR/VIAL IV PRN (08:30)
[2021-12-10 09:00] VITALS: BP_SYST 151; BP_SYST 182; BP_DIAS 110; BP_DIAS 83
[2021-12-10] MEDS: PANTOPRAZOLE 40 MG/10 ML VIAL INJ IV SCH (10:00)
[2021-12-10] MEDS: Bicalutamide 50 MG TAB PO SCH (10:00)
[2021-12-10] MEDS: CYANOCOBALAMIN 500 MCG TAB PO SCH (10:00)
[2021-12-10] MEDS: MULTIPLE VITAMINS W/ MINERALS TAB PO SCH (10:00)
[2021-12-10] MEDS: ASPirin 81 mg TAB PO SCH (10:00)
[2021-12-10] MEDS: LISINOPRIL 20 MG TAB PO SCH (10:00)
[2021-12-10] MEDS: FINASTERIDE 5 MG TAB PO SCH (10:00)
[2021-12-10] MEDS: CHOLECALCIFEROL (VITD3) 2,000 UNIT CAP/TAB PO SCH (10:00)
[2021-12-10] MEDS: FOLIC ACID 1 MG TAB PO SCH (10:00)
[2021-12-10] MEDS: ENOXAPARIN SOD 40 MG/0.4 ML SYRINGE SC SCH (10:00)
[2021-12-10] MEDS: FLUTICASONE PROP NASAL SPR 0.05 % (50MCG) 16GM EACHNOSTRI SCH ×2 (10:00→21:32)
[2021-12-10] MEDS: POLYETHYLENE GLYCOL 17 GM PWDR PO SCH (10:00)
[2021-12-10] MEDS: NIFEdipine ER 30 MG TAB PO SCH (10:00)
[2021-12-10] MEDS: DOCUSATE SOD 100 MG CAP PO PRN (11:00)
[2021-12-10] MEDS ORDERED: ALBU108A5 INH (11:10)
[2021-12-10] MEDS ORDERED: MIRA50TA PO (11:10)
[2021-12-10] MEDS ORDERED: NIFE90TA49 PO (11:10)
[2021-12-10] MEDS ORDERED: LACT10SO3 PO (11:10)
[2021-12-10 13:00] VITALS: BP 143/84
[2021-12-10 17:00] VITALS: BP 129/84
[2021-12-10 19:45] VITALS: BP 112/68
[2021-12-10] MEDS: MONTELUKAST SODIUM 10 MG TAB PO SCH (21:31)
[2021-12-10] MEDS: DOXAZOSIN MESYL 2 MG TAB PO SCH (21:31)
[2021-12-10] MEDS: ATORVASTATIN 20 MG TAB PO SCH (21:31)
[2021-12-10 22:00] VITALS: BP 113/69
[2021-12-11] MEDS: traMADol HCL 50 MG TAB PO SCH ×5 (00:27→23:54)
[2021-12-11] MEDS: levoFLOXacin 750MG 150 ML IV SCH (02:29)
[2021-12-11] MEDS ORDERED: levoFLOXacin 750MG 150 ML IV SCH (03:15)
[2021-12-11 05:00] VITALS: BP 124/67
[2021-12-11 05:29] LABS: Basophils # (auto) 0 10 ^3/uL (0-0.2); Basophils % (auto) 0.3 % (0.0-2.0); Eosinophils # (auto) 0.1 10 ^3/uL (0-0.8); Eosinophils % (auto) 1.8 % (0.0-7.0); Hematocrit 31.1 % (41.0-53.0); Hemoglobin 10.7 g/dL (13.5-17.5); Lymphocytes # (auto) 0.9 10 ^3/uL (0.4-5.4); Lymphocytes % (auto) 15.1 % (10.0-50.0); Mean Corpuscular Hemoglobin 31.5 pg (28.0-32.0); Mean Corpuscular Hgb Conc. 34.5 g/dL (32.0-36.0); Mean Corpuscular Volume 91.2 fL (80.0-100.0); Monocytes # (auto) 0.7 10 ^3/uL (0-1.3); Monocytes % (auto) 11.6 % (0.0-12.0); Neutrophils # (auto) 4.2 10 ^3/uL (1.6-8.6); Neutrophils % (auto) 71.2 % (37.0-80.0); Nucleated Red Blood Cells % 0.1 %; Red Blood Cells 3.41 10^6/uL (4.5-5.90); Red Cell Distribution Width 13.4 % (11.8-14.3); White Blood Cell 5.9 10^3/uL (4.4-10.8)
[2021-12-11 05:43] LABS: Potassium 3.8 mmol/L (3.5-5.1)
[2021-12-11 05:51] LABS: BUN/Creatinine Ratio 29.3; Calcium 8.3 mg/dL (8.5-10.1)
[2021-12-11 05:54] LABS: Bilirubin, Total 0.9 mg/dL (0.2-1.0); Total Protein 6.1 g/dL (6.4-8.2)
[2021-12-11] MEDS: SUCRALFATE 1 GM/10 ML ORAL SUSP PO SCH ×4 (06:27→22:00)
[2021-12-11] MEDS: InsuLIN REG 1unit/0.01ml Soln (100units/ml) SC SCH ×4 (06:27→22:05)
[2021-12-11] MEDS: ACCU-CHEK COMFORT CURVE STRIP VI SCH ×4 (06:27→22:04)
[2021-12-11] MEDS: BUDESONIDE (INHALATION) 0.5 MG/2 ML NEB NEB SCH ×2 (07:21→19:04)
[2021-12-11] MEDS: IPRATROPIUM BROM 0.5 MG/2.5ML INH SOL NEB PRN ×2 (07:21→19:03)
[2021-12-11 08:00] VITALS: BP_SYST 136; BP_SYST 137; BP_SYST 139; BP_DIAS 53; BP_DIAS 87
[2021-12-11] MEDS: MORPHINE SULFATE 4 MG/ML SYR/VIAL IV PRN (08:51)
[2021-12-11] MEDS: PANTOPRAZOLE 40 MG/10 ML VIAL INJ IV SCH (11:11)
[2021-12-11] MEDS: ASPirin 81 mg TAB PO SCH (11:11)
[2021-12-11] MEDS: FOLIC ACID 1 MG TAB PO SCH (11:11)
[2021-12-11] MEDS: MULTIPLE VITAMINS W/ MINERALS TAB PO SCH (11:12)
[2021-12-11] MEDS: NIFEdipine ER 30 MG TAB PO SCH (11:12)
[2021-12-11] MEDS: POLYETHYLENE GLYCOL 17 GM PWDR PO SCH (11:12)
[2021-12-11] MEDS: CYANOCOBALAMIN 500 MCG TAB PO SCH (11:13)
[2021-12-11] MEDS: FINASTERIDE 5 MG TAB PO SCH (11:13)
[2021-12-11] MEDS: CHOLECALCIFEROL (VITD3) 2,000 UNIT CAP/TAB PO SCH (11:13)
[2021-12-11] MEDS: LISINOPRIL 20 MG TAB PO SCH (11:14)
[2021-12-11] MEDS: ENOXAPARIN SOD 40 MG/0.4 ML SYRINGE SC SCH (11:14)
[2021-12-11] MEDS: FLUTICASONE PROP NASAL SPR 0.05 % (50MCG) 16GM EACHNOSTRI SCH ×2 (11:15→22:00)
[2021-12-11 12:00] VITALS: BP 115/69
[2021-12-11] MEDS ORDERED: LACTULOSE 20Gm/30ML SOLN PO ONE (14:30)
[2021-12-11] MEDS ORDERED: BISACODYL 5 MG EC TAB PO ONE (14:45)
[2021-12-11 17:00] VITALS: BP_SYST 109; BP_SYST 158; BP_DIAS 59; BP_DIAS 64
[2021-12-11 22:00] VITALS: BP 113/74
[2021-12-11] MEDS: ATORVASTATIN 20 MG TAB PO SCH (22:03)
[2021-12-11] MEDS: MONTELUKAST SODIUM 10 MG TAB PO SCH (22:03)
[2021-12-11] MEDS: DOXAZOSIN MESYL 2 MG TAB PO SCH (22:03)
[2021-12-12] VITALS (7 sets, daily range): BP systolic 115–168; BP diastolic 67–79
[2021-12-12] MEDS: levoFLOXacin 750MG 150 ML IV SCH (02:23)
[2021-12-12] MEDS: MORPHINE SULFATE 4 MG/ML SYR/VIAL IV PRN (03:01)
[2021-12-12] MEDS ORDERED: guaiFENesin 200 MG/10 ML UD GT ONE (03:45)
[2021-12-12] MEDS ORDERED: guaiFENesin 200 MG/10 ML UD PO PRN (04:00)
[2021-12-12] MEDS: traMADol HCL 50 MG TAB PO SCH ×4 (05:46→23:57)
[2021-12-12] MEDS: ACCU-CHEK COMFORT CURVE STRIP VI SCH ×4 (06:45→21:32)
[2021-12-12] MEDS: SUCRALFATE 1 GM/10 ML ORAL SUSP PO SCH ×4 (06:45→21:13)
[2021-12-12] MEDS: BUDESONIDE (INHALATION) 0.5 MG/2 ML NEB NEB SCH ×2 (06:55→18:25)
[2021-12-12] MEDS: InsuLIN REG 1unit/0.01ml Soln (100units/ml) SC SCH ×4 (07:00→21:29)
[2021-12-12] MEDS: CHOLECALCIFEROL (VITD3) 2,000 UNIT CAP/TAB PO SCH (10:55)
[2021-12-12] MEDS: NIFEdipine ER 30 MG TAB PO SCH (10:55)
[2021-12-12] MEDS: ENOXAPARIN SOD 40 MG/0.4 ML SYRINGE SC SCH (10:55)
[2021-12-12] MEDS: FOLIC ACID 1 MG TAB PO SCH (10:55)
[2021-12-12] MEDS: FINASTERIDE 5 MG TAB PO SCH (10:55)
[2021-12-12] MEDS: ASPirin 81 mg TAB PO SCH (10:55)
[2021-12-12] MEDS: MULTIPLE VITAMINS W/ MINERALS TAB PO SCH (10:55)
[2021-12-12] MEDS: LISINOPRIL 20 MG TAB PO SCH (10:55)
[2021-12-12] MEDS: CYANOCOBALAMIN 500 MCG TAB PO SCH (10:55)
[2021-12-12] MEDS: FLUTICASONE PROP NASAL SPR 0.05 % (50MCG) 16GM EACHNOSTRI SCH ×2 (10:55→21:14)
[2021-12-12] MEDS: PANTOPRAZOLE 40 MG/10 ML VIAL INJ IV SCH (10:55)
[2021-12-12] MEDS: POLYETHYLENE GLYCOL 17 GM PWDR PO SCH (11:00)
[2021-12-12] MEDS ORDERED: GOLYTELY 4L KIT PO ONE (15:00)
[2021-12-12] MEDS: IPRATROPIUM BROM 0.5 MG/2.5ML INH SOL NEB PRN ×2 (18:25→22:43)
[2021-12-12] MEDS: ALBUTEROL SULF 2.5 MG/0.5ML(0.5%) NEB SOLN NEB PRN ×2 (18:25→22:43)
[2021-12-12] MEDS: ATORVASTATIN 20 MG TAB PO SCH ×2 (21:10→21:12)
[2021-12-12] MEDS: DOXAZOSIN MESYL 2 MG TAB PO SCH (21:11)
[2021-12-12] MEDS: MONTELUKAST SODIUM 10 MG TAB PO SCH (21:12)
[2021-12-13] MEDS: ALBUTEROL SULF 2.5 MG/0.5ML(0.5%) NEB SOLN NEB PRN ×4 (02:52→22:27)
[2021-12-13] MEDS: IPRATROPIUM BROM 0.5 MG/2.5ML INH SOL NEB PRN ×4 (02:52→22:27)
[2021-12-13] MEDS: levoFLOXacin 750MG 150 ML IV SCH (02:55)
[2021-12-13 04:23] VITALS: BP 140/82
[2021-12-13] MEDS: traMADol HCL 50 MG TAB PO SCH ×4 (06:00→23:14)
[2021-12-13] MEDS: InsuLIN REG 1unit/0.01ml Soln (100units/ml) SC SCH ×4 (06:26→22:15)
[2021-12-13] MEDS: ACCU-CHEK COMFORT CURVE STRIP VI SCH ×4 (06:27→22:13)
[2021-12-13 06:40] LABS: Potassium 3.5 mmol/L (3.5-5.1)
[2021-12-13 06:46] LABS: Albumin 2.8 g/dL (3.4-5.0); BUN/Creatinine Ratio 32.9; Calcium 8.1 mg/dL (8.5-10.1)
[2021-12-13 06:48] LABS: Bilirubin, Total 0.7 mg/dL (0.2-1.0); Total Protein 5.8 g/dL (6.4-8.2)
[2021-12-13] MEDS: BUDESONIDE (INHALATION) 0.5 MG/2 ML NEB NEB SCH ×2 (07:00→18:23)
[2021-12-13] MEDS: SUCRALFATE 1 GM/10 ML ORAL SUSP PO SCH ×4 (07:00→22:12)
[2021-12-13] MEDS: MORPHINE SULFATE 4 MG/ML SYR/VIAL IV PRN (08:44)
[2021-12-13] MEDS: ENOXAPARIN SOD 40 MG/0.4 ML SYRINGE SC SCH (08:50)
[2021-12-13] MEDS: PANTOPRAZOLE 40 MG/10 ML VIAL INJ IV SCH (08:50)
[2021-12-13] MEDS: FOLIC ACID 1 MG TAB PO SCH (08:51)
[2021-12-13] MEDS: MULTIPLE VITAMINS W/ MINERALS TAB PO SCH (08:51)
[2021-12-13 08:52] VITALS: BP 138/76
[2021-12-13] MEDS: LISINOPRIL 20 MG TAB PO SCH (08:52)
[2021-12-13] MEDS: FINASTERIDE 5 MG TAB PO SCH (08:52)
[2021-12-13] MEDS: CHOLECALCIFEROL (VITD3) 2,000 UNIT CAP/TAB PO SCH (08:52)
[2021-12-13] MEDS: NIFEdipine ER 30 MG TAB PO SCH (08:52)
[2021-12-13] MEDS: ASPirin 81 mg TAB PO SCH (08:53)
[2021-12-13] MEDS: POLYETHYLENE GLYCOL 17 GM PWDR PO SCH (08:58)
[2021-12-13] MEDS: FLUTICASONE PROP NASAL SPR 0.05 % (50MCG) 16GM EACHNOSTRI SCH ×2 (10:00→22:11)
[2021-12-13] MEDS: CYANOCOBALAMIN 500 MCG TAB PO SCH (10:28)
[2021-12-13 13:00] VITALS: BP 113/74
[2021-12-13 17:00] VITALS: BP 169/88
[2021-12-13] MEDS: LORazepam 0.5 MG TAB PO PRN (17:35)
[2021-12-13 21:23] VITALS: BP 118/66
[2021-12-13 21:34] VITALS: BP 118/66
[2021-12-13] MEDS: DOXAZOSIN MESYL 2 MG TAB PO SCH (22:12)
[2021-12-13] MEDS: ATORVASTATIN 20 MG TAB PO SCH (22:12)
[2021-12-13] MEDS: MONTELUKAST SODIUM 10 MG TAB PO SCH (22:13)
[2021-12-14] MEDS: LORazepam 0.5 MG TAB PO PRN (01:03)
[2021-12-14] MEDS: IPRATROPIUM BROM 0.5 MG/2.5ML INH SOL NEB PRN ×4 (02:14→18:06)
[2021-12-14] MEDS: ALBUTEROL SULF 2.5 MG/0.5ML(0.5%) NEB SOLN NEB PRN ×4 (02:14→18:06)
[2021-12-14] MEDS: MORPHINE SULFATE 4 MG/ML SYR/VIAL IV PRN ×2 (03:17→09:43)
[2021-12-14] MEDS: levoFLOXacin 750MG 150 ML IV SCH (03:48)
[2021-12-14 04:52] VITALS: BP 119/54
[2021-12-14] MEDS: traMADol HCL 50 MG TAB PO SCH (05:59)
[2021-12-14] MEDS: BUDESONIDE (INHALATION) 0.5 MG/2 ML NEB NEB SCH ×2 (06:12→18:06)
[2021-12-14] MEDS: SUCRALFATE 1 GM/10 ML ORAL SUSP PO SCH ×4 (06:55→21:16)
[2021-12-14] MEDS: InsuLIN REG 1unit/0.01ml Soln (100units/ml) SC SCH ×4 (06:56→21:27)
[2021-12-14] MEDS: ACCU-CHEK COMFORT CURVE STRIP VI SCH ×4 (06:56→21:18)
[2021-12-14 09:00] VITALS: BP 113/71
[2021-12-14] MEDS: CYANOCOBALAMIN 500 MCG TAB PO SCH (10:00)
[2021-12-14] MEDS: ASPirin 81 mg TAB PO SCH (10:00)
[2021-12-14] MEDS: FINASTERIDE 5 MG TAB PO SCH (10:00)
[2021-12-14] MEDS: MULTIPLE VITAMINS W/ MINERALS TAB PO SCH (10:00)
[2021-12-14] MEDS: LISINOPRIL 20 MG TAB PO SCH (10:00)
[2021-12-14] MEDS: POLYETHYLENE GLYCOL 17 GM PWDR PO SCH (10:00)
[2021-12-14] MEDS: FOLIC ACID 1 MG TAB PO SCH (10:00)
[2021-12-14] MEDS: PANTOPRAZOLE 40 MG/10 ML VIAL INJ IV SCH (10:00)
[2021-12-14] MEDS: ENOXAPARIN SOD 40 MG/0.4 ML SYRINGE SC SCH (10:00)
[2021-12-14] MEDS: FLUTICASONE PROP NASAL SPR 0.05 % (50MCG) 16GM EACHNOSTRI SCH ×2 (10:00→21:16)
[2021-12-14] MEDS: CHOLECALCIFEROL (VITD3) 2,000 UNIT CAP/TAB PO SCH (10:00)
[2021-12-14] MEDS: NIFEdipine ER 30 MG TAB PO SCH (10:00)
[2021-12-14 13:00] VITALS: BP 119/65
[2021-12-14] MEDS ORDERED: FUROSEMIDE 20 MG/2 ML VIAL IV ONE ×2 (13:30)
[2021-12-14] MEDS: ACETAMINOPHEN 325 MG TAB PO PRN (16:18)
[2021-12-14 17:00] VITALS: BP 117/68
[2021-12-14] MEDS ORDERED: FUROSEMIDE 20 MG/2 ML VIAL IV SCH (18:00)
[2021-12-14] MEDS: FUROSEMIDE 40 MG/4 ML VIAL IV SCH (18:19)
[2021-12-14] MEDS: DOXAZOSIN MESYL 2 MG TAB PO SCH (21:16)
[2021-12-14] MEDS: ATORVASTATIN 20 MG TAB PO SCH (21:17)
[2021-12-14] MEDS: MONTELUKAST SODIUM 10 MG TAB PO SCH (21:17)
[2021-12-14 22:00] VITALS: BP 108/60
[2021-12-15] VITALS (27 sets, daily range): BP systolic 107–127; BP diastolic 63–78
[2021-12-15] MEDS: MORPHINE SULFATE 4 MG/ML SYR/VIAL IV PRN ×2 (01:20→09:54)
[2021-12-15] MEDS: levoFLOXacin 750MG 150 ML IV SCH (03:12)
[2021-12-15 05:47] LABS: BUN/Creatinine Ratio 31.3; Calcium 8.2 mg/dL (8.5-10.1); Potassium 3.4 mmol/L (3.5-5.1)
[2021-12-15] MEDS: FUROSEMIDE 40 MG/4 ML VIAL IV SCH ×2 (06:22→17:26)
[2021-12-15] MEDS: SUCRALFATE 1 GM/10 ML ORAL SUSP PO SCH ×4 (06:22→22:25)
[2021-12-15] MEDS: ACCU-CHEK COMFORT CURVE STRIP VI SCH ×4 (06:23→22:27)
[2021-12-15] MEDS: InsuLIN REG 1unit/0.01ml Soln (100units/ml) SC SCH ×4 (06:23→22:00)
[2021-12-15] MEDS: ALBUTEROL SULF 2.5 MG/0.5ML(0.5%) NEB SOLN NEB PRN ×3 (07:44→22:02)
[2021-12-15] MEDS: IPRATROPIUM BROM 0.5 MG/2.5ML INH SOL NEB PRN ×3 (07:44→22:02)
[2021-12-15] MEDS: BUDESONIDE (INHALATION) 0.5 MG/2 ML NEB NEB SCH ×2 (07:44→18:40)
[2021-12-15] MEDS: ASPirin 81 mg TAB PO SCH (10:00)
[2021-12-15] MEDS: NIFEdipine ER 30 MG TAB PO SCH (10:00)
[2021-12-15] MEDS: LISINOPRIL 20 MG TAB PO SCH (10:00)
[2021-12-15] MEDS: ENOXAPARIN SOD 40 MG/0.4 ML SYRINGE SC SCH (10:00)
[2021-12-15] MEDS: CYANOCOBALAMIN 500 MCG TAB PO SCH (10:00)
[2021-12-15] MEDS: MULTIPLE VITAMINS W/ MINERALS TAB PO SCH (10:00)
[2021-12-15] MEDS: CHOLECALCIFEROL (VITD3) 2,000 UNIT CAP/TAB PO SCH (10:00)
[2021-12-15] MEDS: POLYETHYLENE GLYCOL 17 GM PWDR PO SCH (10:00)
[2021-12-15] MEDS: FLUTICASONE PROP NASAL SPR 0.05 % (50MCG) 16GM EACHNOSTRI SCH ×2 (10:00→22:00)
[2021-12-15] MEDS: FOLIC ACID 1 MG TAB PO SCH (10:00)
[2021-12-15] MEDS: FINASTERIDE 5 MG TAB PO SCH (10:00)
[2021-12-15] MEDS: PANTOPRAZOLE 40 MG/10 ML VIAL INJ IV SCH (10:30)
[2021-12-15] MEDS ORDERED: ETOMIDATE (2MG/ML) 20ML VIAL IV ONE (13:32)
[2021-12-15] MEDS ORDERED: SUCCINYLCHOLINE CHLORIDE 20 MG/ML 10ML VIAL IV ONE (13:32)
[2021-12-15] MEDS ORDERED: MIDAZOLAM DRIP 50 mg/50mL 50 ML IV ONE (13:36)
[2021-12-15] MEDS ORDERED: fentaNYL Drip 2500mCg/250mlNS 250 ML IV ONE (14:00)
[2021-12-15 15:35] LABS: Basophils # (auto) 0 10 ^3/uL (0-0.2); Basophils % (auto) 0.1 % (0.0-2.0); Eosinophils # (auto) 0 10 ^3/uL (0-0.8); Eosinophils % (auto) 0.4 % (0.0-7.0); Hematocrit 30.6 % (41.0-53.0); Hemoglobin 10.6 g/dL (13.5-17.5); Lymphocytes # (auto) 0.3 10 ^3/uL (0.4-5.4); Lymphocytes % (auto) 2.9 % (10.0-50.0); Mean Corpuscular Hemoglobin 31.3 pg (28.0-32.0); Mean Corpuscular Hgb Conc. 34.8 g/dL (32.0-36.0); Monocytes # (auto) 1.1 10 ^3/uL (0-1.3); Monocytes % (auto) 11.3 % (0.0-12.0); Neutrophils # (auto) 8.1 10 ^3/uL (1.6-8.6); Neutrophils % (auto) 85.3 % (37.0-80.0); Red Cell Distribution Width 13.1 % (11.8-14.3); White Blood Cell 9.5 10^3/uL (4.4-10.8)
[2021-12-15 15:51] LABS: INR 1.18 (0.9-1.15); Partial Thromboplastin Time 32.5 sec (23.6-33.0)
[2021-12-15] MEDS: POTASSIUM CHL 20MEQ/100ML 100 ML IV SCH ×2 (16:20→17:00)
[2021-12-15] MEDS: NOREPINEPHRINE 8 MG/250ML KIT 250 ML IV SCH ×2 (16:21→22:22)
[2021-12-15] MEDS: MIDAZOLAM DRIP 50 mg/50mL 50 ML IV SCH ×2 (16:22→22:24)
[2021-12-15] MEDS ORDERED: fentaNYL Drip 2500mCg/250mlNS 250 ML IV SCH (17:15)
[2021-12-15] MEDS ORDERED: NOREPINEPHRINE 8 MG/250ML KIT 250 ML IV ONE (21:56)
[2021-12-15] MEDS: DOXAZOSIN MESYL 2 MG TAB PO SCH (22:00)
[2021-12-15] MEDS: MONTELUKAST SODIUM 10 MG TAB PO SCH (22:26)
[2021-12-15] MEDS: ATORVASTATIN 20 MG TAB PO SCH (22:26)
[2021-12-15] MEDS: fentaNYL Drip 2500mCg/250mlNS 250 ML IV SCH (22:31)
[2021-12-16] VITALS (88 sets, daily range): BP systolic 76–138; BP diastolic 49–98
[2021-12-16] MEDS: ALBUTEROL SULF 2.5 MG/0.5ML(0.5%) NEB SOLN NEB PRN ×4 (02:20→22:09)
[2021-12-16] MEDS: IPRATROPIUM BROM 0.5 MG/2.5ML INH SOL NEB PRN ×4 (02:20→22:09)
[2021-12-16] MEDS: levoFLOXacin 750MG 150 ML IV SCH (03:00)
[2021-12-16] MEDS: ACETAMINOPHEN 325 MG TAB PO PRN ×3 (05:01→21:53)
[2021-12-16] MEDS: FUROSEMIDE 40 MG/4 ML VIAL IV SCH ×2 (06:34→18:15)
[2021-12-16] MEDS: MIDAZOLAM DRIP 50 mg/50mL 50 ML IV SCH ×3 (06:35→20:30)
[2021-12-16] MEDS: ACCU-CHEK COMFORT CURVE STRIP VI SCH ×4 (06:44→21:09)
[2021-12-16] MEDS: InsuLIN REG 1unit/0.01ml Soln (100units/ml) SC SCH ×4 (06:45→21:05)
[2021-12-16] MEDS: SUCRALFATE 1 GM/10 ML ORAL SUSP PO SCH ×4 (07:00→21:04)
[2021-12-16 07:38] LABS: Basophils # (auto) 0 10 ^3/uL (0-0.2); Basophils % (auto) 0.4 % (0.0-2.0); Eosinophils # (auto) 0.1 10 ^3/uL (0-0.8); Eosinophils % (auto) 2.2 % (0.0-7.0); Hematocrit 28.7 % (41.0-53.0); Hemoglobin 10.2 g/dL (13.5-17.5); Lymphocytes % (auto) 15.3 % (10.0-50.0); Mean Corpuscular Hemoglobin 31.9 pg (28.0-32.0); Mean Corpuscular Hgb Conc. 35.7 g/dL (32.0-36.0); Mean Corpuscular Volume 89.6 fL (80.0-100.0); Monocytes % (auto) 15.4 % (0.0-12.0); Neutrophils # (auto) 4.2 10 ^3/uL (1.6-8.6); Neutrophils % (auto) 66.7 % (37.0-80.0); Red Cell Distribution Width 13.3 % (11.8-14.3); White Blood Cell 6.4 10^3/uL (4.4-10.8)
[2021-12-16] MEDS: BUDESONIDE (INHALATION) 0.5 MG/2 ML NEB NEB SCH ×2 (07:45→18:20)
[2021-12-16] MEDS: fentaNYL Drip 2500mCg/250mlNS 250 ML IV SCH (07:51)
[2021-12-16] MEDS: NOREPINEPHRINE 8 MG/250ML KIT 250 ML IV SCH (07:52)
[2021-12-16 08:47] LABS: BUN/Creatinine Ratio 21.3; Bilirubin, Total 0.8 mg/dL (0.2-1.0); Calcium 8.2 mg/dL (8.5-10.1); Potassium 3.2 mmol/L (3.5-5.1)
[2021-12-16 08:48] LABS: Albumin 2.5 g/dL (3.4-5.0); Total Protein 5.5 g/dL (6.4-8.2)
[2021-12-16] MEDS: PANTOPRAZOLE 40 MG/10 ML VIAL INJ IV SCH (09:43)
[2021-12-16] MEDS: ENOXAPARIN SOD 40 MG/0.4 ML SYRINGE SC SCH (09:43)
[2021-12-16] MEDS: POTASSIUM CHL 20MEQ/100ML 100 ML IV SCH ×3 (09:44→13:00)
[2021-12-16] MEDS: ASPirin 81 mg TAB PO SCH (10:00)
[2021-12-16] MEDS: CYANOCOBALAMIN 500 MCG TAB PO SCH (10:00)
[2021-12-16] MEDS: LISINOPRIL 20 MG TAB PO SCH (10:00)
[2021-12-16] MEDS: NIFEdipine ER 30 MG TAB PO SCH (10:00)
[2021-12-16] MEDS: FLUTICASONE PROP NASAL SPR 0.05 % (50MCG) 16GM EACHNOSTRI SCH ×2 (10:00→21:04)
[2021-12-16] MEDS: FOLIC ACID 1 MG TAB PO SCH (10:00)
[2021-12-16] MEDS: MULTIPLE VITAMINS W/ MINERALS TAB PO SCH (10:00)
[2021-12-16] MEDS: CHOLECALCIFEROL (VITD3) 2,000 UNIT CAP/TAB PO SCH (10:00)
[2021-12-16] MEDS: FINASTERIDE 5 MG TAB PO SCH (10:00)
[2021-12-16] MEDS: POLYETHYLENE GLYCOL 17 GM PWDR PO SCH (10:00)
[2021-12-16] MEDS ORDERED: LIDOCAINE 1% (LOCAL ANESTH.) PF 5ml SDV ID ONE (13:15)
[2021-12-16] MEDS: ERGOCALCIFEROL 50,000 UNIT(1.25MG) CAP PO SCH (15:30)
[2021-12-16] MEDS: DOXAZOSIN MESYL 2 MG TAB PO SCH (21:04)
[2021-12-16] MEDS: ATORVASTATIN 20 MG TAB PO SCH (21:04)
[2021-12-16] MEDS: SODIUM CHLOR 0.9% PF (SALINE LOCK) 10ML VIAL/SYR IV SCH (21:04)
[2021-12-17] VITALS (66 sets, daily range): BP systolic 0–148; BP diastolic 60–83
[2021-12-17] MEDS: MIDAZOLAM DRIP 50 mg/50mL 50 ML IV SCH ×2 (02:30→17:13)
[2021-12-17] MEDS: IPRATROPIUM BROM 0.5 MG/2.5ML INH SOL NEB PRN ×5 (02:33→18:38)
[2021-12-17] MEDS: ALBUTEROL SULF 2.5 MG/0.5ML(0.5%) NEB SOLN NEB PRN ×5 (02:33→18:38)
[2021-12-17] MEDS: fentaNYL Drip 2500mCg/250mlNS 250 ML IV SCH (02:48)
[2021-12-17] MEDS: levoFLOXacin 750MG 150 ML IV SCH (03:00)
[2021-12-17] MEDS: NOREPINEPHRINE 8 MG/250ML KIT 250 ML IV SCH (04:04)
[2021-12-17] MEDS: FUROSEMIDE 40 MG/4 ML VIAL IV SCH ×2 (06:02→17:46)
[2021-12-17] MEDS: ACCU-CHEK COMFORT CURVE STRIP VI SCH ×3 (06:04→18:00)
[2021-12-17] MEDS: InsuLIN REG 1unit/0.01ml Soln (100units/ml) SC SCH ×3 (06:04→18:00)
[2021-12-17] MEDS: BUDESONIDE (INHALATION) 0.5 MG/2 ML NEB NEB SCH ×2 (06:38→18:00)
[2021-12-17] MEDS: SUCRALFATE 1 GM/10 ML ORAL SUSP PO SCH ×4 (07:00→21:24)
[2021-12-17 09:41] LABS: Basophils # (auto) 0 10 ^3/uL (0-0.2); Basophils % (auto) 0.5 % (0.0-2.0); Eosinophils # (auto) 0.1 10 ^3/uL (0-0.8); Eosinophils % (auto) 0.8 % (0.0-7.0); Hematocrit 30.9 % (41.0-53.0); Hemoglobin 10.5 g/dL (13.5-17.5); Lymphocytes # (auto) 0.6 10 ^3/uL (0.4-5.4); Mean Corpuscular Hgb Conc. 34.1 g/dL (32.0-36.0); Monocytes % (auto) 11.3 % (0.0-12.0); Neutrophils # (auto) 7.1 10 ^3/uL (1.6-8.6); Neutrophils % (auto) 80.4 % (37.0-80.0); Red Cell Distribution Width 13.6 % (11.8-14.3); White Blood Cell 8.8 10^3/uL (4.4-10.8)
[2021-12-17 09:53] LABS: BUN/Creatinine Ratio 22.3; Calcium 8.3 mg/dL (8.5-10.1); Potassium 3.6 mmol/L (3.5-5.1)
[2021-12-17] MEDS: ASPirin 81 mg TAB PO SCH (10:00)
[2021-12-17] MEDS: MULTIPLE VITAMINS W/ MINERALS TAB PO SCH (10:00)
[2021-12-17] MEDS: POLYETHYLENE GLYCOL 17 GM PWDR PO SCH (10:00)
[2021-12-17] MEDS: FINASTERIDE 5 MG TAB PO SCH (10:00)
[2021-12-17] MEDS: FOLIC ACID 1 MG TAB PO SCH (10:00)
[2021-12-17] MEDS: CHOLECALCIFEROL (VITD3) 2,000 UNIT CAP/TAB PO SCH (10:00)
[2021-12-17] MEDS: CYANOCOBALAMIN 500 MCG TAB PO SCH (10:00)
[2021-12-17] MEDS: FLUTICASONE PROP NASAL SPR 0.05 % (50MCG) 16GM EACHNOSTRI SCH ×2 (10:00→21:23)
[2021-12-17] MEDS: ENOXAPARIN SOD 40 MG/0.4 ML SYRINGE SC SCH (11:40)
[2021-12-17] MEDS: PANTOPRAZOLE 40 MG/10 ML VIAL INJ IV SCH (11:40)
[2021-12-17] MEDS: SODIUM CHLOR 0.9% PF (SALINE LOCK) 10ML VIAL/SYR IV SCH ×2 (11:41→21:24)
[2021-12-17] MEDS: ACETAMINOPHEN 325 MG TAB PO PRN (15:19)
[2021-12-17] MEDS ORDERED: DEXTROSE (50%) 50ML SYRG IV PRN (17:30)
[2021-12-17] MEDS ORDERED: ACCU-CHEK COMFORT CURVE STRIP VI SCH (18:00)
[2021-12-17] MEDS: ATORVASTATIN 20 MG TAB PO SCH (21:38)
[2021-12-17] MEDS: DOXAZOSIN MESYL 2 MG TAB PO SCH (22:03)
[2021-12-18] VITALS (49 sets, daily range): BP systolic 96–129; BP diastolic 58–83
[2021-12-18] MEDS: IPRATROPIUM BROM 0.5 MG/2.5ML INH SOL NEB PRN (01:31)
[2021-12-18] MEDS: ALBUTEROL SULF 2.5 MG/0.5ML(0.5%) NEB SOLN NEB PRN (01:31)
[2021-12-18] MEDS: MIDAZOLAM DRIP 50 mg/50mL 50 ML IV SCH ×2 (02:46→17:15)
[2021-12-18] MEDS: levoFLOXacin 750MG 150 ML IV SCH (02:55)
[2021-12-18] MEDS ORDERED: ALBUTEROL SULF 2.5 MG/0.5ML(0.5%) NEB SOLN NEB ONE (03:30)
[2021-12-18] MEDS: ACETAMINOPHEN 325 MG TAB PO PRN ×2 (04:00→08:18)
[2021-12-18] MEDS: FUROSEMIDE 40 MG/4 ML VIAL IV SCH (05:31)
[2021-12-18] MEDS: ACCU-CHEK COMFORT CURVE STRIP VI SCH ×4 (05:40→18:00)
[2021-12-18] MEDS: InsuLIN REG 1unit/0.01ml Soln (100units/ml) SC SCH ×4 (05:40→18:00)
[2021-12-18] MEDS: SUCRALFATE 1 GM/10 ML ORAL SUSP PO SCH ×4 (06:04→22:00)
[2021-12-18] MEDS: IPRATROPIUM BROM 0.5 MG/2.5ML INH SOL NEB SCH ×2 (06:09→18:09)
[2021-12-18] MEDS: BUDESONIDE (INHALATION) 0.5 MG/2 ML NEB NEB SCH ×2 (06:09→17:55)
[2021-12-18] MEDS: ALBUTEROL SULF 2.5 MG/0.5ML(0.5%) NEB SOLN NEB SCH ×2 (06:09→18:09)
[2021-12-18 06:11] LABS: Basophils # (auto) 0 10 ^3/uL (0-0.2); Basophils % (auto) 0.3 % (0.0-2.0); Eosinophils # (auto) 0 10 ^3/uL (0-0.8); Eosinophils % (auto) 0.4 % (0.0-7.0); Hematocrit 32.2 % (41.0-53.0); Lymphocytes # (auto) 0.6 10 ^3/uL (0.4-5.4); Lymphocytes % (auto) 5.9 % (10.0-50.0); Mean Corpuscular Hemoglobin 31.2 pg (28.0-32.0); Mean Corpuscular Hgb Conc. 34.3 g/dL (32.0-36.0); Monocytes # (auto) 1.1 10 ^3/uL (0-1.3); Monocytes % (auto) 10.4 % (0.0-12.0); Neutrophils # (auto) 9.2 10 ^3/uL (1.6-8.6); Red Blood Cells 3.54 10^6/uL (4.5-5.90); Red Cell Distribution Width 13.7 % (11.8-14.3); White Blood Cell 11.1 10^3/uL (4.4-10.8)
[2021-12-18 06:26] LABS: Calcium 8.4 mg/dL (8.5-10.1); Potassium 3.8 mmol/L (3.5-5.1)
[2021-12-18 06:31] LABS: Magnesium 2.9 mg/dL (1.6-2.6)
[2021-12-18] MEDS: PANTOPRAZOLE 40 MG/10 ML VIAL INJ IV SCH (09:24)
[2021-12-18] MEDS: CYANOCOBALAMIN 500 MCG TAB PO SCH (09:25)
[2021-12-18] MEDS: MULTIPLE VITAMINS W/ MINERALS TAB PO SCH (09:25)
[2021-12-18] MEDS: CHOLECALCIFEROL (VITD3) 2,000 UNIT CAP/TAB PO SCH (09:25)
[2021-12-18] MEDS: ENOXAPARIN SOD 40 MG/0.4 ML SYRINGE SC SCH (09:25)
[2021-12-18] MEDS: ASPirin 81 mg TAB PO SCH (09:25)
[2021-12-18] MEDS: FOLIC ACID 1 MG TAB PO SCH (09:25)
[2021-12-18] MEDS: SODIUM CHLOR 0.9% PF (SALINE LOCK) 10ML VIAL/SYR IV SCH ×2 (09:26→22:38)
[2021-12-18] MEDS: FINASTERIDE 5 MG TAB PO SCH (09:26)
[2021-12-18] MEDS: FLUTICASONE PROP NASAL SPR 0.05 % (50MCG) 16GM EACHNOSTRI SCH (09:27)
[2021-12-18] MEDS: POLYETHYLENE GLYCOL 17 GM PWDR PO SCH (10:00)
[2021-12-18] MEDS ORDERED: SODIUM CHLORIDE 0.9 % NEB SOLN 3ML NEB ONE (11:13)
[2021-12-18] MEDS ORDERED: ALBUMIN 5% 250 ML IV ONE (15:00)
[2021-12-18] MEDS: NOREPINEPHRINE 8 MG/250ML KIT 250 ML IV SCH (15:30)
[2021-12-18] MEDS: FUROSEMIDE 20 MG/2 ML VIAL IV SCH (17:14)
[2021-12-18] MEDS: PIPERACILLIN-TAZOB 3.375GM 100 ML IV SCH (17:14)
[2021-12-18] MEDS: fentaNYL Drip 2500mCg/250mlNS 250 ML IV SCH ×2 (17:18→23:00)
[2021-12-18] MEDS: ATORVASTATIN 20 MG TAB PO SCH (22:00)
[2021-12-18] MEDS: DOXAZOSIN MESYL 2 MG TAB PO SCH (22:00)
[2021-12-19] VITALS (57 sets, daily range): BP systolic 88–146; BP diastolic 46–73
[2021-12-19] MEDS: IPRATROPIUM BROM 0.5 MG/2.5ML INH SOL NEB SCH ×4 (00:18→18:13)
[2021-12-19] MEDS: ALBUTEROL SULF 2.5 MG/0.5ML(0.5%) NEB SOLN NEB SCH ×4 (00:18→18:13)
[2021-12-19] MEDS: ACETAMINOPHEN 325 MG TAB PO PRN ×2 (00:30→14:09)
[2021-12-19] MEDS: MIDAZOLAM DRIP 50 mg/50mL 50 ML IV SCH ×3 (01:17→23:38)
[2021-12-19] MEDS: FUROSEMIDE 20 MG/2 ML VIAL IV SCH (05:32)
[2021-12-19] MEDS: PIPERACILLIN-TAZOB 3.375GM 100 ML IV SCH ×4 (05:32→17:41)
[2021-12-19] MEDS: ACCU-CHEK COMFORT CURVE STRIP VI SCH ×4 (05:32→18:07)
[2021-12-19] MEDS: InsuLIN REG 1unit/0.01ml Soln (100units/ml) SC SCH ×4 (05:32→17:40)
[2021-12-19] MEDS: SUCRALFATE 1 GM/10 ML ORAL SUSP PO SCH ×4 (06:11→22:00)
[2021-12-19] MEDS: BUDESONIDE (INHALATION) 0.5 MG/2 ML NEB NEB SCH ×2 (06:57→18:13)
[2021-12-19 09:43] LABS: Basophils # (auto) 0 10 ^3/uL (0-0.2); Basophils % (auto) 0.2 % (0.0-2.0); Eosinophils # (auto) 0.2 10 ^3/uL (0-0.8); Eosinophils % (auto) 1.9 % (0.0-7.0); Hematocrit 27.4 % (41.0-53.0); Hemoglobin 9.2 g/dL (13.5-17.5); Lymphocytes # (auto) 0.7 10 ^3/uL (0.4-5.4); Lymphocytes % (auto) 7.8 % (10.0-50.0); Mean Corpuscular Hgb Conc. 33.6 g/dL (32.0-36.0); Mean Corpuscular Volume 92.3 fL (80.0-100.0); Monocytes # (auto) 0.9 10 ^3/uL (0-1.3); Monocytes % (auto) 10.5 % (0.0-12.0); Neutrophils # (auto) 6.8 10 ^3/uL (1.6-8.6); Neutrophils % (auto) 79.6 % (37.0-80.0); Red Blood Cells 2.96 10^6/uL (4.5-5.90); Red Cell Distribution Width 13.7 % (11.8-14.3); White Blood Cell 8.5 10^3/uL (4.4-10.8)
[2021-12-19 09:53] LABS: BUN/Creatinine Ratio 30.5; Calcium 7.9 mg/dL (8.5-10.1); Potassium 4.2 mmol/L (3.5-5.1)
[2021-12-19] MEDS: FINASTERIDE 5 MG TAB PO SCH (10:00)
[2021-12-19] MEDS: ENOXAPARIN SOD 40 MG/0.4 ML SYRINGE SC SCH (10:05)
[2021-12-19] MEDS: ASPirin 81 mg TAB PO SCH (10:05)
[2021-12-19] MEDS: PANTOPRAZOLE 40 MG/10 ML VIAL INJ IV SCH (10:05)
[2021-12-19] MEDS: SODIUM CHLOR 0.9% PF (SALINE LOCK) 10ML VIAL/SYR IV SCH ×2 (10:06→22:00)
[2021-12-19] MEDS: FUROSEMIDE INJECTION 100 MG in D5W 5% 100 ML IV SCH (10:25)
[2021-12-19] MEDS: NOREPINEPHRINE 8 MG/250ML KIT 250 ML IV SCH (15:30)
[2021-12-19] MEDS: POLYETHYLENE GLYCOL 17 GM PWDR PO SCH (17:41)
[2021-12-19] MEDS: DOXAZOSIN MESYL 2 MG TAB PO SCH (22:01)
[2021-12-19] MEDS: ATORVASTATIN 20 MG TAB PO SCH (22:01)
[2021-12-19] MEDS: fentaNYL Drip 2500mCg/250mlNS 250 ML IV SCH (23:37)
[2021-12-20] VITALS (63 sets, daily range): BP systolic 102–141; BP diastolic 48–67
[2021-12-20] MEDS: ACCU-CHEK COMFORT CURVE STRIP VI SCH ×3 (00:19→11:50)
[2021-12-20] MEDS: PIPERACILLIN-TAZOB 3.375GM 100 ML IV SCH ×4 (00:19→17:47)
[2021-12-20] MEDS: IPRATROPIUM BROM 0.5 MG/2.5ML INH SOL NEB SCH ×4 (00:21→18:09)
[2021-12-20] MEDS: ALBUTEROL SULF 2.5 MG/0.5ML(0.5%) NEB SOLN NEB SCH ×4 (00:21→18:09)
[2021-12-20] MEDS: FUROSEMIDE INJECTION 100 MG in D5W 5% 100 ML IV SCH ×2 (00:23→20:44)
[2021-12-20 05:04] LABS: Basophils # (auto) 0 10 ^3/uL (0-0.2); Basophils % (auto) 0.5 % (0.0-2.0); Eosinophils # (auto) 0.1 10 ^3/uL (0-0.8); Eosinophils % (auto) 1.8 % (0.0-7.0); Hematocrit 26.5 % (41.0-53.0); Hemoglobin 9.2 g/dL (13.5-17.5); Lymphocytes # (auto) 0.8 10 ^3/uL (0.4-5.4); Lymphocytes % (auto) 9.8 % (10.0-50.0); Mean Corpuscular Hemoglobin 31.4 pg (28.0-32.0); Mean Corpuscular Hgb Conc. 34.7 g/dL (32.0-36.0); Mean Corpuscular Volume 90.5 fL (80.0-100.0); Monocytes # (auto) 0.8 10 ^3/uL (0-1.3); Monocytes % (auto) 9.8 % (0.0-12.0); Neutrophils # (auto) 6.1 10 ^3/uL (1.6-8.6); Neutrophils % (auto) 78.1 % (37.0-80.0); Red Blood Cells 2.93 10^6/uL (4.5-5.90); Red Cell Distribution Width 13.7 % (11.8-14.3); White Blood Cell 7.8 10^3/uL (4.4-10.8)
[2021-12-20] MEDS: MIDAZOLAM DRIP 50 mg/50mL 50 ML IV SCH ×4 (05:15→22:55)
[2021-12-20 05:18] LABS: Potassium 3.5 mmol/L (3.5-5.1)
[2021-12-20 05:22] LABS: BUN/Creatinine Ratio 26.5
[2021-12-20] MEDS: BUDESONIDE (INHALATION) 0.5 MG/2 ML NEB NEB SCH ×2 (05:39→18:10)
[2021-12-20] MEDS: InsuLIN REG 1unit/0.01ml Soln (100units/ml) SC SCH ×3 (05:49→11:50)
[2021-12-20] MEDS: SUCRALFATE 1 GM/10 ML ORAL SUSP PO SCH ×4 (06:02→21:23)
[2021-12-20] MEDS: ASPirin 81 mg TAB PO SCH (09:56)
[2021-12-20] MEDS: FINASTERIDE 5 MG TAB PO SCH (09:56)
[2021-12-20] MEDS: ENOXAPARIN SOD 40 MG/0.4 ML SYRINGE SC SCH (09:56)
[2021-12-20] MEDS: SODIUM CHLOR 0.9% PF (SALINE LOCK) 10ML VIAL/SYR IV SCH ×2 (09:56→21:22)
[2021-12-20] MEDS: PANTOPRAZOLE 40 MG/10 ML VIAL INJ IV SCH (09:56)
[2021-12-20] MEDS: POLYETHYLENE GLYCOL 17 GM PWDR PO SCH (09:57)
[2021-12-20] MEDS: NOREPINEPHRINE 8 MG/250ML KIT 250 ML IV SCH (09:58)
[2021-12-20] MEDS: fentaNYL Drip 2500mCg/250mlNS 250 ML IV SCH (11:19)
[2021-12-20] MEDS: ACETAMINOPHEN 325 MG TAB PO PRN (20:44)
[2021-12-20] MEDS: DOXAZOSIN MESYL 2 MG TAB PO SCH (21:23)
[2021-12-20] MEDS: ATORVASTATIN 20 MG TAB PO SCH (21:23)
[2021-12-21] VITALS (69 sets, daily range): BP systolic 92–137; BP diastolic 44–71
[2021-12-21] MEDS: IPRATROPIUM BROM 0.5 MG/2.5ML INH SOL NEB SCH ×4 (00:08→18:07)
[2021-12-21] MEDS: ALBUTEROL SULF 2.5 MG/0.5ML(0.5%) NEB SOLN NEB SCH ×4 (00:08→18:07)
[2021-12-21] MEDS: PIPERACILLIN-TAZOB 3.375GM 100 ML IV SCH ×4 (00:20→17:49)
[2021-12-21] MEDS: fentaNYL Drip 2500mCg/250mlNS 250 ML IV SCH ×2 (03:19→17:56)
[2021-12-21] MEDS: MIDAZOLAM DRIP 50 mg/50mL 50 ML IV SCH ×4 (03:52→23:10)
[2021-12-21 05:10] LABS: Basophils # (auto) 0.1 10 ^3/uL (0-0.2); Basophils % (auto) 0.8 % (0.0-2.0); Eosinophils # (auto) 0.3 10 ^3/uL (0-0.8); Eosinophils % (auto) 3.6 % (0.0-7.0); Hematocrit 29.9 % (41.0-53.0); Hemoglobin 10.2 g/dL (13.5-17.5); Lymphocytes # (auto) 0.9 10 ^3/uL (0.4-5.4); Lymphocytes % (auto) 10.9 % (10.0-50.0); Mean Corpuscular Hemoglobin 31.3 pg (28.0-32.0); Mean Corpuscular Hgb Conc. 34.2 g/dL (32.0-36.0); Mean Corpuscular Volume 91.5 fL (80.0-100.0); Monocytes # (auto) 0.8 10 ^3/uL (0-1.3); Monocytes % (auto) 9.7 % (0.0-12.0); Neutrophils # (auto) 6.4 10 ^3/uL (1.6-8.6); Nucleated Red Blood Cells % 0.1 %; Red Blood Cells 3.27 10^6/uL (4.5-5.90); Red Cell Distribution Width 13.6 % (11.8-14.3); White Blood Cell 8.5 10^3/uL (4.4-10.8)
[2021-12-21] MEDS: BUDESONIDE (INHALATION) 0.5 MG/2 ML NEB NEB SCH ×2 (05:17→18:07)
[2021-12-21 05:25] LABS: Albumin 2.1 g/dL (3.4-5.0); BUN/Creatinine Ratio 23.4; Calcium 8.2 mg/dL (8.5-10.1); Potassium 3.7 mmol/L (3.5-5.1)
[2021-12-21 05:27] LABS: Bilirubin, Total 0.4 mg/dL (0.2-1.0); Phosphorus 3.4 mg/dL (2.5-4.90); Total Protein 5.8 g/dL (6.4-8.2)
[2021-12-21] MEDS: SUCRALFATE 1 GM/10 ML ORAL SUSP PO SCH ×4 (06:45→21:00)
[2021-12-21] MEDS: ASPirin 81 mg TAB PO SCH (09:41)
[2021-12-21] MEDS: SODIUM CHLOR 0.9% PF (SALINE LOCK) 10ML VIAL/SYR IV SCH ×2 (09:41→22:00)
[2021-12-21] MEDS: PANTOPRAZOLE 40 MG/10 ML VIAL INJ IV SCH (09:41)
[2021-12-21] MEDS: acetaZOLAMIDE SODIUM 500 MG VL IV SCH (09:41)
[2021-12-21] MEDS: POLYETHYLENE GLYCOL 17 GM PWDR PO SCH (09:41)
[2021-12-21] MEDS: FINASTERIDE 5 MG TAB PO SCH (09:42)
[2021-12-21] MEDS: ENOXAPARIN SOD 40 MG/0.4 ML SYRINGE SC SCH (09:42)
[2021-12-21] MEDS ORDERED: VANCOMYCIN PER PHARMACY 0 MG IV SCH (11:00)
[2021-12-21] MEDS ORDERED: PROPOFOL 100 ML IV ONE (11:08)
[2021-12-21] MEDS ORDERED: VANCOMYCIN 1GM/250ML 250 ML IV ONE (11:15)
[2021-12-21] MEDS: PROPOFOL 100 ML IV SCH ×2 (11:15→19:43)
[2021-12-21] MEDS: NOREPINEPHRINE 8 MG/250ML KIT 250 ML IV SCH (14:52)
[2021-12-21] MEDS: FUROSEMIDE 20 MG/2 ML VIAL IV SCH (17:48)
[2021-12-21] MEDS: DOXAZOSIN MESYL 2 MG TAB PO SCH (21:00)
[2021-12-21] MEDS: ATORVASTATIN 20 MG TAB PO SCH (21:00)
[2021-12-22] VITALS (38 sets, daily range): BP systolic 110–158; BP diastolic 37–81
[2021-12-22] MEDS: IPRATROPIUM BROM 0.5 MG/2.5ML INH SOL NEB SCH ×4 (00:07→18:34)
[2021-12-22] MEDS: ALBUTEROL SULF 2.5 MG/0.5ML(0.5%) NEB SOLN NEB SCH ×4 (00:07→18:34)
[2021-12-22] MEDS: PIPERACILLIN-TAZOB 3.375GM 100 ML IV SCH ×4 (00:17→18:26)
[2021-12-22] MEDS: MIDAZOLAM DRIP 50 mg/50mL 50 ML IV SCH ×4 (03:33→22:16)
[2021-12-22 05:17] LABS: Albumin 1.9 g/dL (3.4-5.0); Calcium 8.2 mg/dL (8.5-10.1); Magnesium 2.8 mg/dL (1.6-2.6); Potassium 3.6 mmol/L (3.5-5.1)
[2021-12-22 05:21] LABS: BUN/Creatinine Ratio 22.6; Bilirubin, Total 0.9 mg/dL (0.2-1.0); Phosphorus 4.6 mg/dL (2.5-4.90); Total Protein 5.6 g/dL (6.4-8.2)
[2021-12-22] MEDS: FUROSEMIDE 20 MG/2 ML VIAL IV SCH (05:51)
[2021-12-22] MEDS: fentaNYL Drip 2500mCg/250mlNS 250 ML IV SCH (05:53)
[2021-12-22] MEDS ORDERED: VANCOMYCIN 1GM/250ML 250 ML IV SCH (06:00)
[2021-12-22 06:20] LABS: Basophils # (auto) 0 10 ^3/uL (0-0.2); Basophils % (auto) 0.3 % (0.0-2.0); Eosinophils # (auto) 0.3 10 ^3/uL (0-0.8); Eosinophils % (auto) 2.8 % (0.0-7.0); Hematocrit 29.8 % (41.0-53.0); Hemoglobin 10.4 g/dL (13.5-17.5); Lymphocytes # (auto) 0.7 10 ^3/uL (0.4-5.4); Lymphocytes % (auto) 7.7 % (10.0-50.0); Mean Corpuscular Hemoglobin 31.8 pg (28.0-32.0); Mean Corpuscular Volume 90.9 fL (80.0-100.0); Monocytes % (auto) 10.5 % (0.0-12.0); Neutrophils # (auto) 7.5 10 ^3/uL (1.6-8.6); Neutrophils % (auto) 78.7 % (37.0-80.0); Red Blood Cells 3.28 10^6/uL (4.5-5.90); Red Cell Distribution Width 13.2 % (11.8-14.3); White Blood Cell 9.6 10^3/uL (4.4-10.8)
[2021-12-22] MEDS: SUCRALFATE 1 GM/10 ML ORAL SUSP PO SCH ×4 (07:00→11:27)
[2021-12-22] MEDS: BUDESONIDE (INHALATION) 0.5 MG/2 ML NEB NEB SCH ×2 (08:18→18:34)
[2021-12-22] MEDS: SODIUM CHLOR 0.9% PF (SALINE LOCK) 10ML VIAL/SYR IV SCH ×2 (09:14→22:16)
[2021-12-22] MEDS: PANTOPRAZOLE 40 MG/10 ML VIAL INJ IV SCH (09:14)
[2021-12-22] MEDS: FINASTERIDE 5 MG TAB PO SCH (09:15)
[2021-12-22] MEDS: ENOXAPARIN SOD 40 MG/0.4 ML SYRINGE SC SCH (09:15)
[2021-12-22] MEDS: POLYETHYLENE GLYCOL 17 GM PWDR PO SCH (09:15)
[2021-12-22] MEDS: ASPirin 81 mg TAB PO SCH (09:15)
[2021-12-22] MEDS: acetaZOLAMIDE SODIUM 500 MG VL IV SCH (09:29)
[2021-12-22] MEDS ORDERED: LORazepam 2MG/ML-1ML VIAL IV PRN (10:00)
[2021-12-22] MEDS: NOREPINEPHRINE 8 MG/250ML KIT 250 ML IV SCH (15:10)
[2021-12-22] MEDS: DOXAZOSIN MESYL 2 MG TAB PO SCH (22:16)
[2021-12-23] VITALS (50 sets, daily range): BP systolic 112–168; BP diastolic 55–90
[2021-12-23] MEDS: ALBUTEROL SULF 2.5 MG/0.5ML(0.5%) NEB SOLN NEB SCH ×4 (00:28→18:28)
[2021-12-23] MEDS: IPRATROPIUM BROM 0.5 MG/2.5ML INH SOL NEB SCH ×4 (00:28→18:28)
[2021-12-23] MEDS: PIPERACILLIN-TAZOB 3.375GM 100 ML IV SCH ×4 (00:29→17:59)
[2021-12-23 05:38] LABS: Calcium 8.2 mg/dL (8.5-10.1); Potassium 3.5 mmol/L (3.5-5.1)
[2021-12-23 05:39] LABS: BUN/Creatinine Ratio 23.9
[2021-12-23] MEDS: MIDAZOLAM DRIP 50 mg/50mL 50 ML IV SCH (06:31)
[2021-12-23] MEDS: fentaNYL Drip 2500mCg/250mlNS 250 ML IV SCH (06:32)
[2021-12-23 07:31] LABS: Basophils # (auto) 0.1 10 ^3/uL (0-0.2); Basophils % (auto) 0.7 % (0.0-2.0); Eosinophils # (auto) 0.1 10 ^3/uL (0-0.8); Eosinophils % (auto) 1.3 % (0.0-7.0); Hematocrit 27.6 % (41.0-53.0); Hemoglobin 9.5 g/dL (13.5-17.5); Lymphocytes # (auto) 0.7 10 ^3/uL (0.4-5.4); Lymphocytes % (auto) 7.6 % (10.0-50.0); Mean Corpuscular Hgb Conc. 34.3 g/dL (32.0-36.0); Mean Corpuscular Volume 90.3 fL (80.0-100.0); Monocytes # (auto) 0.9 10 ^3/uL (0-1.3); Neutrophils % (auto) 81.4 % (37.0-80.0); Nucleated Red Blood Cells % 0.2 %; Red Blood Cells 3.06 10^6/uL (4.5-5.90); Red Cell Distribution Width 13.6 % (11.8-14.3); White Blood Cell 9.8 10^3/uL (4.4-10.8)
[2021-12-23] MEDS ORDERED: FUROSEMIDE 20 MG/2 ML VIAL IV SCH (10:00)
[2021-12-23] MEDS: POLYETHYLENE GLYCOL 17 GM PWDR PO SCH (10:00)
[2021-12-23] MEDS: ASPirin 81 mg TAB PO SCH (10:21)
[2021-12-23] MEDS: SODIUM CHLOR 0.9% PF (SALINE LOCK) 10ML VIAL/SYR IV SCH ×2 (10:21→21:39)
[2021-12-23] MEDS: PANTOPRAZOLE 40 MG/10 ML VIAL INJ IV SCH (10:21)
[2021-12-23] MEDS: FINASTERIDE 5 MG TAB PO SCH (10:25)
[2021-12-23] MEDS: acetaZOLAMIDE SODIUM 500 MG VL IV SCH (10:27)
[2021-12-23] MEDS: PROPOFOL 100 ML IV SCH (11:15)
[2021-12-23] MEDS: ENOXAPARIN SOD 40 MG/0.4 ML SYRINGE SC SCH (11:16)
[2021-12-23] MEDS ORDERED: POTASSIUM EFFERVESENT TAB 25 MEQ GT ONE (11:30)
[2021-12-23] MEDS ORDERED: MORPHINE SULFATE INJECTION 2 MG/ML SYRG IV PRN (11:30)
[2021-12-23] MEDS: ACETAMINOPHEN 325 MG TAB PO PRN (15:33)
[2021-12-23] MEDS: ERGOCALCIFEROL 50,000 UNIT(1.25MG) CAP PO SCH (16:01)
[2021-12-23] MEDS: NOREPINEPHRINE 8 MG/250ML KIT 250 ML IV SCH (16:23)
[2021-12-23] MEDS: BUDESONIDE (INHALATION) 0.5 MG/2 ML NEB NEB SCH (18:28)
[2021-12-23] MEDS: DOXAZOSIN MESYL 2 MG TAB PO SCH (21:39)
[2021-12-24] VITALS (41 sets, daily range): BP systolic 91–183; BP diastolic 44–93
[2021-12-24] MEDS: IPRATROPIUM BROM 0.5 MG/2.5ML INH SOL NEB SCH ×4 (00:14→18:25)
[2021-12-24] MEDS: ALBUTEROL SULF 2.5 MG/0.5ML(0.5%) NEB SOLN NEB SCH ×4 (00:14→18:25)
[2021-12-24] MEDS: PIPERACILLIN-TAZOB 3.375GM 100 ML IV SCH ×2 (00:21→06:43)
[2021-12-24] MEDS: hydrALAZINE HCL 20 MG/ML VL IV PRN ×2 (00:22→10:36)
[2021-12-24] MEDS: ACETAMINOPHEN 325 MG TAB PO PRN (00:32)
[2021-12-24 04:57] LABS: Basophils # (auto) 0 10 ^3/uL (0-0.2); Basophils % (auto) 0.3 % (0.0-2.0); Eosinophils # (auto) 0.1 10 ^3/uL (0-0.8); Hematocrit 27.5 % (41.0-53.0); Hemoglobin 9.5 g/dL (13.5-17.5); Lymphocytes # (auto) 0.9 10 ^3/uL (0.4-5.4); Lymphocytes % (auto) 9.1 % (10.0-50.0); Mean Corpuscular Hemoglobin 30.6 pg (28.0-32.0); Mean Corpuscular Hgb Conc. 34.5 g/dL (32.0-36.0); Mean Corpuscular Volume 88.8 fL (80.0-100.0); Monocytes # (auto) 0.9 10 ^3/uL (0-1.3); Monocytes % (auto) 10.1 % (0.0-12.0); Neutrophils # (auto) 7.4 10 ^3/uL (1.6-8.6); Neutrophils % (auto) 79.5 % (37.0-80.0); Nucleated Red Blood Cells % 0.1 %; Red Blood Cells 3.09 10^6/uL (4.5-5.90); Red Cell Distribution Width 13.4 % (11.8-14.3); White Blood Cell 9.3 10^3/uL (4.4-10.8)
[2021-12-24 05:15] LABS: Calcium 8.2 mg/dL (8.5-10.1)
[2021-12-24 05:18] LABS: BUN/Creatinine Ratio 21.7; Bilirubin, Total 0.7 mg/dL (0.2-1.0); Total Protein 5.9 g/dL (6.4-8.2)
[2021-12-24 05:32] LABS: Potassium 2.6 mmol/L (3.5-5.1)
[2021-12-24] MEDS ORDERED: POTASSIUM EFFERVESENT TAB 25 MEQ GT ONE ×2 (05:45→10:00)
[2021-12-24] MEDS: BUDESONIDE (INHALATION) 0.5 MG/2 ML NEB NEB SCH ×2 (06:09→18:25)
[2021-12-24] MEDS: ASPirin 81 mg TAB PO SCH (09:49)
[2021-12-24] MEDS: SODIUM CHLOR 0.9% PF (SALINE LOCK) 10ML VIAL/SYR IV SCH ×2 (09:49→21:21)
[2021-12-24] MEDS: acetaZOLAMIDE SODIUM 500 MG VL IV SCH (09:49)
[2021-12-24] MEDS: PANTOPRAZOLE 40 MG/10 ML VIAL INJ IV SCH (09:49)
[2021-12-24] MEDS: FINASTERIDE 5 MG TAB PO SCH (09:50)
[2021-12-24] MEDS: ENOXAPARIN SOD 40 MG/0.4 ML SYRINGE SC SCH (09:50)
[2021-12-24] MEDS: POLYETHYLENE GLYCOL 17 GM PWDR PO SCH (10:00)
[2021-12-24] MEDS ORDERED: FUROSEMIDE 20 MG/2 ML VIAL IV ONE ×2 (11:00→11:15)
[2021-12-24] MEDS ORDERED: FUROSEMIDE 20 MG/2 ML VIAL ONE (11:02)
[2021-12-24] MEDS ORDERED: POTASSIUM CHL 20MEQ/100ML 200 ML IV ONE (11:04)
[2021-12-24] MEDS: PROPOFOL 100 ML IV SCH (11:15)
[2021-12-24] MEDS ORDERED: LORazepam 2MG/ML-1ML VIAL IV PRN (11:15)
[2021-12-24] MEDS ORDERED: NITROGLYCERIN 2% OINT 1GM PKG TD ONE (11:45)
[2021-12-24] MEDS: POTASSIUM CHL 20MEQ/100ML 100 ML IV SCH ×6 (12:19→23:30)
[2021-12-24] MEDS: CEFEPIME 1 GM in SODIUM CHL 0.9% 50 ML IV SCH (15:12)
[2021-12-24] MEDS: NOREPINEPHRINE 8 MG/250ML KIT 250 ML IV SCH (15:30)
[2021-12-24] MEDS: MIDAZOLAM DRIP 50 mg/50mL 50 ML IV SCH (15:30)
[2021-12-24 16:42] LABS: BUN/Creatinine Ratio 21.7; Calcium 8.7 mg/dL (8.5-10.1); Potassium 3.3 mmol/L (3.5-5.1)
[2021-12-24] MEDS ORDERED: POTASSIUM CHL 20MEQ/100ML 100 ML IV SCH (17:15)
[2021-12-24] MEDS: fentaNYL Drip 2500mCg/250mlNS 250 ML IV SCH (17:15)
[2021-12-24] MEDS: DOXAZOSIN MESYL 2 MG TAB PO SCH (21:21)
[2021-12-25] VITALS (32 sets, daily range): BP systolic 133–188; BP diastolic 52–92
[2021-12-25] MEDS: ALBUTEROL SULF 2.5 MG/0.5ML(0.5%) NEB SOLN NEB SCH ×4 (00:05→18:27)
[2021-12-25] MEDS: IPRATROPIUM BROM 0.5 MG/2.5ML INH SOL NEB SCH ×4 (00:05→18:27)
[2021-12-25] MEDS: CEFEPIME 1 GM in SODIUM CHL 0.9% 50 ML IV SCH ×2 (02:30→13:59)
[2021-12-25 05:08] LABS: Albumin 2.2 g/dL (3.4-5.0); BUN/Creatinine Ratio 22.1; Calcium 8.6 mg/dL (8.5-10.1); Potassium 3.4 mmol/L (3.5-5.1)
[2021-12-25 05:11] LABS: Basophils # (auto) 0.1 10 ^3/uL (0-0.2); Basophils % (auto) 0.6 % (0.0-2.0); Bilirubin, Total 0.6 mg/dL (0.2-1.0); Eosinophils # (auto) 0.1 10 ^3/uL (0-0.8); Eosinophils % (auto) 1.1 % (0.0-7.0); Hematocrit 27.9 % (41.0-53.0); Hemoglobin 9.5 g/dL (13.5-17.5); Lymphocytes # (auto) 0.6 10 ^3/uL (0.4-5.4); Lymphocytes % (auto) 7.4 % (10.0-50.0); Mean Corpuscular Hemoglobin 30.8 pg (28.0-32.0); Mean Corpuscular Hgb Conc. 34.2 g/dL (32.0-36.0); Mean Corpuscular Volume 90.1 fL (80.0-100.0); Neutrophils # (auto) 6.8 10 ^3/uL (1.6-8.6); Neutrophils % (auto) 78.9 % (37.0-80.0); Red Cell Distribution Width 13.2 % (11.8-14.3); White Blood Cell 8.6 10^3/uL (4.4-10.8)
[2021-12-25] MEDS: LABETALOL HCL 5 MG/ML 4ML SYRINGE IV PRN (09:30)
[2021-12-25] MEDS: ENOXAPARIN SOD 40 MG/0.4 ML SYRINGE SC SCH (09:30)
[2021-12-25] MEDS: PANTOPRAZOLE 40 MG/10 ML VIAL INJ IV SCH (09:30)
[2021-12-25] MEDS: POLYETHYLENE GLYCOL 17 GM PWDR PO SCH (10:00)
[2021-12-25] MEDS: ASPirin 81 mg TAB PO SCH (10:00)
[2021-12-25] MEDS: FINASTERIDE 5 MG TAB PO SCH (10:00)
[2021-12-25] MEDS: hydrALAZINE HCL 20 MG/ML VL IV PRN (10:07)
[2021-12-25] MEDS: SODIUM CHLOR 0.9% PF (SALINE LOCK) 10ML VIAL/SYR IV SCH ×2 (10:08→21:51)
[2021-12-25] MEDS ORDERED: POTASSIUM CHL 20MEQ/100ML 100 ML IV ONE (11:45)
[2021-12-25] MEDS ORDERED: FUROSEMIDE 20 MG/2 ML VIAL IV ONE (11:45)
[2021-12-25] MEDS ORDERED: LISINOPRIL 20 MG TAB PO ONE (11:45)
[2021-12-25] MEDS ORDERED: MORPHINE SULFATE INJECTION 2 MG/ML SYRG IV PRN (11:45)
[2021-12-25] MEDS: BUDESONIDE (INHALATION) 0.5 MG/2 ML NEB NEB SCH ×2 (12:35→18:27)
[2021-12-25] MEDS: DOXAZOSIN MESYL 2 MG TAB PO SCH (21:52)
[2021-12-26] MEDS: ALBUTEROL SULF 2.5 MG/0.5ML(0.5%) NEB SOLN NEB SCH ×5 (00:09→23:11)
[2021-12-26] MEDS: IPRATROPIUM BROM 0.5 MG/2.5ML INH SOL NEB SCH ×5 (00:09→23:11)
[2021-12-26] MEDS: CEFEPIME 1 GM in SODIUM CHL 0.9% 50 ML IV SCH (01:49)
[2021-12-26] MEDS: ACETAMINOPHEN 325 MG TAB PO PRN ×3 (04:42→15:30)
[2021-12-26 05:00] VITALS: BP 159/81
[2021-12-26] MEDS: hydrALAZINE HCL 20 MG/ML VL IV PRN (06:28)
[2021-12-26] MEDS: BUDESONIDE (INHALATION) 0.5 MG/2 ML NEB NEB SCH ×2 (06:42→18:44)
[2021-12-26 06:44] LABS: Basophils # (auto) 0 10 ^3/uL (0-0.2); Basophils % (auto) 0.6 % (0.0-2.0); Eosinophils # (auto) 0.1 10 ^3/uL (0-0.8); Eosinophils % (auto) 1.4 % (0.0-7.0); Hematocrit 26.3 % (41.0-53.0); Hemoglobin 9.3 g/dL (13.5-17.5); Lymphocytes # (auto) 0.6 10 ^3/uL (0.4-5.4); Lymphocytes % (auto) 9.7 % (10.0-50.0); Mean Corpuscular Hemoglobin 31.2 pg (28.0-32.0); Mean Corpuscular Hgb Conc. 35.4 g/dL (32.0-36.0); Mean Corpuscular Volume 88.2 fL (80.0-100.0); Monocytes # (auto) 0.8 10 ^3/uL (0-1.3); Neutrophils # (auto) 4.9 10 ^3/uL (1.6-8.6); Neutrophils % (auto) 76.3 % (37.0-80.0); Nucleated Red Blood Cells % 0.1 %; Red Blood Cells 2.98 10^6/uL (4.5-5.90); Red Cell Distribution Width 13.5 % (11.8-14.3); White Blood Cell 6.5 10^3/uL (4.4-10.8)
[2021-12-26 07:02] LABS: BUN/Creatinine Ratio 26.7; Calcium 8.6 mg/dL (8.5-10.1)
[2021-12-26 08:30] VITALS: BP 134/79
[2021-12-26] MEDS: POLYETHYLENE GLYCOL 17 GM PWDR PO SCH (09:47)
[2021-12-26] MEDS: SODIUM CHLOR 0.9% PF (SALINE LOCK) 10ML VIAL/SYR IV SCH ×2 (09:47→22:05)
[2021-12-26] MEDS: PANTOPRAZOLE 40 MG/10 ML VIAL INJ IV SCH (09:47)
[2021-12-26] MEDS: ASPirin 81 mg TAB PO SCH (09:47)
[2021-12-26] MEDS: LISINOPRIL 20 MG TAB PO SCH (09:48)
[2021-12-26] MEDS: FINASTERIDE 5 MG TAB PO SCH (09:48)
[2021-12-26] MEDS: ENOXAPARIN SOD 40 MG/0.4 ML SYRINGE SC SCH (10:00)
[2021-12-26] MEDS ORDERED: POTASSIUM CHL 20 Meq TABLET PO ONE (11:45)
[2021-12-26 12:30] VITALS: BP 142/70
[2021-12-26] MEDS: cefTRIAXone 1GM/50ML D5W 50 ML IV SCH (13:00)
[2021-12-26] MEDS ORDERED: CEFEPIME 1 GM in SODIUM CHL 0.9% 50 ML IV SCH (14:00)
[2021-12-26 17:00] VITALS: BP 132/87
[2021-12-26 22:00] VITALS: BP 143/70
[2021-12-26] MEDS ORDERED: POTASSIUM EFFERVESENT TAB 25 MEQ GT SCH (22:00)
[2021-12-26] MEDS: DOXAZOSIN MESYL 2 MG TAB PO SCH (22:05)
[2021-12-26] MEDS: POTASSIUM EFFERVESENT TAB 25 MEQ PO SCH (22:24)
[2021-12-27 05:00] VITALS: BP 144/76
[2021-12-27] MEDS: ACETAMINOPHEN 325 MG TAB PO PRN ×2 (05:47→11:30)
[2021-12-27 06:42] LABS: Calcium 8.7 mg/dL (8.5-10.1); Potassium 3.8 mmol/L (3.5-5.1)
[2021-12-27 06:45] LABS: BUN/Creatinine Ratio 29.3
[2021-12-27] MEDS: ALBUTEROL SULF 2.5 MG/0.5ML(0.5%) NEB SOLN NEB SCH ×2 (07:05→19:07)
[2021-12-27] MEDS: IPRATROPIUM BROM 0.5 MG/2.5ML INH SOL NEB SCH ×2 (07:05→19:07)
[2021-12-27] MEDS: BUDESONIDE (INHALATION) 0.5 MG/2 ML NEB NEB SCH ×2 (07:05→19:07)
[2021-12-27 09:00] VITALS: BP 139/74
[2021-12-27] MEDS: PANTOPRAZOLE 40 MG TAB PO SCH (09:05)
[2021-12-27] MEDS: ASPirin 81 mg TAB PO SCH (09:07)
[2021-12-27] MEDS: cefTRIAXone 1GM/50ML D5W 50 ML IV SCH (09:07)
[2021-12-27] MEDS: FINASTERIDE 5 MG TAB PO SCH (09:08)
[2021-12-27] MEDS: LISINOPRIL 20 MG TAB PO SCH (09:09)
[2021-12-27] MEDS: ENOXAPARIN SOD 40 MG/0.4 ML SYRINGE SC SCH (09:09)
[2021-12-27] MEDS: SODIUM CHLOR 0.9% PF (SALINE LOCK) 10ML VIAL/SYR IV SCH ×2 (09:10→22:19)
[2021-12-27] MEDS: POLYETHYLENE GLYCOL 17 GM PWDR PO SCH (09:10)
[2021-12-27] MEDS: POTASSIUM EFFERVESENT TAB 25 MEQ PO SCH ×2 (09:16→22:20)
[2021-12-27 13:00] VITALS: BP 106/64
[2021-12-27 16:00] VITALS: BP 151/85
[2021-12-27] MEDS ORDERED: hydrOXYzine 25 MG TAB or CAP PO PRN (19:45)
[2021-12-27 20:00] VITALS: BP 147/77
[2021-12-27 22:00] VITALS: BP 150/78
[2021-12-27] MEDS: DOXAZOSIN MESYL 2 MG TAB PO SCH (22:19)
[2021-12-28] MEDS: ALBUTEROL SULF 2.5 MG/0.5ML(0.5%) NEB SOLN NEB SCH ×4 (00:40→18:17)
[2021-12-28] MEDS: IPRATROPIUM BROM 0.5 MG/2.5ML INH SOL NEB SCH ×4 (00:40→18:17)
[2021-12-28 05:00] VITALS: BP 146/77
[2021-12-28] MEDS: BUDESONIDE (INHALATION) 0.5 MG/2 ML NEB NEB SCH ×2 (06:46→18:17)
[2021-12-28] MEDS: cefTRIAXone 1GM/50ML D5W 50 ML IV SCH (09:00)
[2021-12-28 09:23] VITALS: BP 165/85
[2021-12-28 09:29] LABS: Calcium 8.7 mg/dL (8.5-10.1); Potassium 3.6 mmol/L (3.5-5.1)
[2021-12-28 09:31] LABS: BUN/Creatinine Ratio 20.9
[2021-12-28] MEDS: LISINOPRIL 20 MG TAB PO SCH (09:56)
[2021-12-28] MEDS: PANTOPRAZOLE 40 MG TAB PO SCH (09:56)
[2021-12-28] MEDS: FINASTERIDE 5 MG TAB PO SCH (09:56)
[2021-12-28] MEDS: ENOXAPARIN SOD 40 MG/0.4 ML SYRINGE SC SCH (09:56)
[2021-12-28] MEDS: ASPirin 81 mg TAB PO SCH (09:56)
[2021-12-28] MEDS: POLYETHYLENE GLYCOL 17 GM PWDR PO SCH (09:57)
[2021-12-28] MEDS: POTASSIUM EFFERVESENT TAB 25 MEQ PO SCH ×2 (09:57→22:00)
[2021-12-28] MEDS: SODIUM CHLOR 0.9% PF (SALINE LOCK) 10ML VIAL/SYR IV SCH ×2 (10:00→22:00)
[2021-12-28 12:37] VITALS: BP 144/85
[2021-12-28] MEDS: LABETALOL HCL 5 MG/ML 4ML SYRINGE IV PRN (16:28)
[2021-12-28 16:57] VITALS: BP 164/81
[2021-12-28 20:00] VITALS: BP 130/53
[2021-12-28 22:00] VITALS: BP 130/53
[2021-12-28] MEDS: DOXAZOSIN MESYL 2 MG TAB PO SCH (22:00)
[2021-12-29] MEDS: ALBUTEROL SULF 2.5 MG/0.5ML(0.5%) NEB SOLN NEB SCH ×3 (00:33→11:26)
[2021-12-29] MEDS: IPRATROPIUM BROM 0.5 MG/2.5ML INH SOL NEB SCH ×3 (00:34→11:26)
[2021-12-29] MEDS: ACETAMINOPHEN 325 MG TAB PO PRN (04:48)
[2021-12-29 05:00] VITALS: BP 139/52
[2021-12-29] MEDS: BUDESONIDE (INHALATION) 0.5 MG/2 ML NEB NEB SCH (05:48)
[2021-12-29 08:00] VITALS: BP 130/53
[2021-12-29 09:00] VITALS: BP 167/90
[2021-12-29] MEDS: cefTRIAXone 1GM/50ML D5W 50 ML IV SCH (09:48)
[2021-12-29] MEDS: SODIUM CHLOR 0.9% PF (SALINE LOCK) 10ML VIAL/SYR IV SCH (09:49)
[2021-12-29] MEDS: ASPirin 81 mg TAB PO SCH (09:49)
[2021-12-29] MEDS: POTASSIUM EFFERVESENT TAB 25 MEQ PO SCH (09:50)
[2021-12-29] MEDS: POLYETHYLENE GLYCOL 17 GM PWDR PO SCH (09:50)
[2021-12-29] MEDS: FINASTERIDE 5 MG TAB PO SCH (09:51)
[2021-12-29] MEDS: PANTOPRAZOLE 40 MG TAB PO SCH (09:51)
[2021-12-29] MEDS: LISINOPRIL 20 MG TAB PO SCH (09:53)
[2021-12-29] MEDS: ENOXAPARIN SOD 40 MG/0.4 ML SYRINGE SC SCH (09:54)
[2021-12-29] MEDS ORDERED: POTASSIUM CHL 20 Meq TABLET PO ONE (12:00)
[2021-12-29] MEDS ORDERED: FUROSEMIDE 20 MG/2 ML VIAL IV ONE (12:00)
[2021-12-29 13:00] VITALS: BP 164/77
[2021-12-29 16:50] VITALS: BP 149/82
[2021-12-29 17:35] VITALS: BP 149/82
[2021-12-29] MEDS ORDERED: Pro-Stat SF 30ml Vanilla PO SCH (18:00)
== END 2021-12-29 18:55 | DRG 870 ==
LOC: ER 10:15 → OVERFLOW 16:03 → WEST WING 23:03 → ICU CENTRL 12-15 13:57 → DOU IN ICU 12-15 14:29 → ICU CENTRL 12-15 17:32 → TELE-WESTW 12-25 18:13
PROVIDERS: ADMIT Hospitalist; ATTEND Internal Medicine
PROC: 5A1955Z Respiratory Ventilation, Greater than 96 Consecutive Hours (ICD-10-PCS; principal; 2021-12-15)
PROC: 0BH17EZ Insertion of Endotracheal Airway into Trachea, Via Natural or Artificial Opening (ICD-10-PCS; 2021-12-15)
PROC: 05H933Z Insertion of Infusion Device into Right Brachial Vein, Percutaneous Approach (ICD-10-PCS; 2021-12-15)
PROC: B54MZZA Ultrasonography of Right Upper Extremity Veins, Guidance (ICD-10-PCS; 2021-12-15)
PROC: 02HV33Z Insertion of Infusion Device into Superior Vena Cava, Percutaneous Approach (ICD-10-PCS; 2021-12-16)
DX: A41.9 Sepsis, unspecified organism (principal); I50.33 Acute on chronic diastolic (congestive) heart failure; J96.01 Acute respiratory failure with hypoxia; R65.21 Severe sepsis with septic shock; J15.5 Pneumonia due to Escherichia coli; S22.42XA Multiple fractures of ribs, left side, initial encounter for closed fracture; J98.11 Atelectasis; I16.9 Hypertensive crisis, unspecified; J44.0 Chronic obstructive pulmonary disease with (acute) lower respiratory infection; E87.3 Alkalosis; Z99.11 Dependence on respirator [ventilator] status; F11.20 Opioid dependence, uncomplicated; I47.1 Supraventricular tachycardia; S27.329A Contusion of lung, unspecified, initial encounter; W06.XXXA Fall from bed, initial encounter; K21.9 Gastro-esophageal reflux disease without esophagitis; C61 Malignant neoplasm of prostate; E66.9 Obesity, unspecified; I11.0 Hypertensive heart disease with heart failure; N40.0 Benign prostatic hyperplasia without lower urinary tract symptoms; M19.90 Unspecified osteoarthritis, unspecified site; K80.20 Calculus of gallbladder without cholecystitis without obstruction; Z20.822 Contact with and (suspected) exposure to COVID-19; E11.9 Type 2 diabetes mellitus without complications; E78.5 Hyperlipidemia, unspecified; E55.9 Vitamin D deficiency, unspecified; Z68.30 Body mass index [BMI] 30.0-30.9, adult; D64.9 Anemia, unspecified; E87.6 Hypokalemia; Z87.891 Personal history of nicotine dependence; Z82.49 Family history of ischemic heart disease and other diseases of the circulatory system; Z85.46 Personal history of malignant neoplasm of prostate; Z87.11 Personal history of peptic ulcer disease; Z79.899 Other long term (current) drug therapy; Y93.89 Activity, other specified; Y92.098 Other place in other non-institutional residence as the place of occurrence of the external cause; Y99.8 Other external cause status
CPT/HCPCS: 31500; 36415; 36569; 36600; 70450; 71045; 71250; 74176; 76604; 80048; 80053; 80061; 80307; 81001; 82306; 82550; 82728; 82805; 82962; 83036; 83615; 83690; 83735; 83880; 84100; 84132; 84443; 84484; 84550; 85025; 85379; 85610; 85652; 85730; 86141; 87040; 87070; 87077; 87086; 87186; 87205; 92610; 93005; 93306; 93925; 93970; 94002; 94003; 94640; 96372; 97110; 97116; 97163; 97530; C9113; G0378; J0330; J0696; J1815; J1956; J2250; J2405; J2543; J2704; J3480; J3490; J7060

== ENCOUNTER → 2022-04-20 | Outpatient (CLI) | payer MEDICARE, MEDICAID ==
[~2022-04-20] MED LIST changes: +ALBU108A5 INH; -ASPI-394 PO; -BICA50TA13 PO; +LACT10SO3 PO; +MIRA50TA PO; +NIFE90TA49 PO
== END | disposition home or self-care (01) ==
LOC: LAB 10:28
PROVIDERS: ATTEND Urology
DX: R97.20 Elevated prostate specific antigen [PSA] (principal)
CPT/HCPCS: 84153

== ENCOUNTER → 2022-04-30 | Outpatient (CLI) | payer MEDICARE, MEDICAID ==
[2022-05-01 08:43] LABS: Urine Bacteria NONE SEEN /hpf (None Seen); Urine Blood Negative /uL (Negative); Urine Specific Gravity 1.016 (1.001-1.035); Urine WBC <1 /hpf (0 - 3)
== END | disposition home or self-care (01) ==
LOC: LAB 16:00
PROVIDERS: ATTEND Urology
DX: N39.0 Urinary tract infection, site not specified (principal)
CPT/HCPCS: 81001; 87086

== ENCOUNTER → 2022-09-29 | Outpatient (CLI) | payer MEDICARE, MEDICAID | END | disposition home or self-care (01) | LOC: LAB 06:00 | PROVIDERS: ATTEND Urology | DX: C61 Malignant neoplasm of prostate (principal) | CPT/HCPCS: 84153 ==

== ENCOUNTER → 2022-12-28 | Outpatient (CLI) | payer MEDICARE, MEDICAID | END | disposition home or self-care (01) | LOC: LAB 09:00 | PROVIDERS: ATTEND Urology | DX: C61 Malignant neoplasm of prostate (principal) | CPT/HCPCS: 84153 ==

== ENCOUNTER → 2023-02-01 | Outpatient (CLI) | payer MEDICARE, MEDICAID ==
[2023-02-01 09:28] LABS: Basophils # (auto) 0 10 ^3/uL (0-0.2); Basophils % (auto) 0.7 % (0.0-2.0); Eosinophils # (auto) 0.1 10 ^3/uL (0-0.8); Eosinophils % (auto) 1.7 % (0.0-7.0); Hematocrit 37.3 % (41.0-53.0); Hemoglobin 12.4 g/dL (13.5-17.5); Lymphocytes # (auto) 1.5 10 ^3/uL (0.4-5.4); Lymphocytes % (auto) 27.8 % (10.0-50.0); Mean Corpuscular Hemoglobin 30.8 pg (28.0-32.0); Mean Corpuscular Hgb Conc. 33.3 g/dL (32.0-36.0); Mean Corpuscular Volume 92.5 fL (80.0-100.0); Monocytes # (auto) 0.5 10 ^3/uL (0-1.3); Monocytes % (auto) 8.9 % (0.0-12.0); Neutrophils # (auto) 3.3 10 ^3/uL (1.6-8.6); Neutrophils % (auto) 60.9 % (37.0-80.0); Red Blood Cells 4.03 10^6/uL (4.5-5.90); Red Cell Distribution Width 14.2 % (11.8-14.3); White Blood Cell 5.5 10^3/uL (4.4-10.8)
[2023-02-01 10:24] LABS: Potassium 3.6 mmol/L (3.5-5.1)
[2023-02-01 10:32] LABS: Free T4 (Free Thyroxine) 1.16 ng/dL (0.89-1.76); Prostate Specific Antigen 0.02 ng/mL (0.0-4.0)
[2023-02-01 10:59] LABS: Albumin 4.1 g/dL (3.4-5.0); BUN/Creatinine Ratio 16.3 (10.0-20.0); Bilirubin, Total 0.7 mg/dL (0.2-1.0); Calcium 9.2 mg/dL (8.5-10.1); Total Protein 7.1 g/dL (6.4-8.2)
== END | disposition home or self-care (01) ==
LOC: LAB 09:02
PROVIDERS: ATTEND Nurse Practitioner Family
DX: E11.65 Type 2 diabetes mellitus with hyperglycemia (principal); I10 Essential (primary) hypertension; R35.1 Nocturia
CPT/HCPCS: 36415; 80053; 80061; 82043; 83036; 84153; 84439; 84443; 85025

== ENCOUNTER → 2023-03-29 | Outpatient (CLI) | payer MEDICARE, MEDICAID ==
[~2023-03-29] MED LIST changes: -DOXA4TAB6 PO; +DOXA4TAB83 PO; -LISI40TA11 PO; +LISI40TA16 PO; -NIFE90TA49 PO; +NIFE90TA75 PO
== END | disposition home or self-care (01) ==
LOC: LAB 11:19
PROVIDERS: ATTEND Urology
DX: C61 Malignant neoplasm of prostate (principal)
CPT/HCPCS: 84154

== ENCOUNTER → 2023-07-05 | Outpatient (CLI) | payer MEDICARE, MEDICAID ==
[2023-07-06 07:06] LABS: PSA Free <0.02 ng/mL; Prostate Specific Antigen <0.1 ng/mL (0.0-4.0)
== END | disposition home or self-care (01) ==
LOC: LAB 09:01
PROVIDERS: ATTEND Urology
DX: C61 Malignant neoplasm of prostate (principal)
CPT/HCPCS: 84154

== ENCOUNTER → 2023-11-17 | Outpatient (CLI) | payer MEDICARE, MEDICAID | END | disposition home or self-care (01) | LOC: LAB 09:22 | PROVIDERS: ATTEND Urology | DX: C61 Malignant neoplasm of prostate (principal) | CPT/HCPCS: 84153 ==

== ENCOUNTER → 2024-02-01 | Outpatient (CLI) | payer MEDICARE, MEDICAID ==
[2024-02-01 10:16] LABS: Creatinine, Urine 89.19 mg/dL (30.0-125.0)
[2024-02-01 10:20] LABS: Alanine Aminotransferase 16 U/L (7-40); Albumin 4.5 g/dL (3.2-4.8); Alkaline Phosphatase 47 U/L (46-116); Anion Gap 7 (5-15); Aspartate Aminotransferase 16 U/L (13-40); BUN/Creatinine Ratio 13.4 (10.0-20.0); Bilirubin, Total 0.7 mg/dL (0.2-1.0); Blood Urea Nitrogen 13 mg/dL (9-23); Calcium 9.8 mg/dL (8.5-10.1); Carbon Dioxide 30 mmol/L (20-30); Chloride 105 mmol/L (98-107); Cholesterol 115 mg/dL (< 200); Glucose 134 mg/dL (74-106); HDL Cholesterol 45 mg/dL (40-59); LDL Cholesterol 55 mg/dL (< 100); Potassium 4.1 mmol/L (3.5-5.1); Sodium 142 mmol/L (136-145); Triglycerides 87 mg/dL (< 150)
[2024-02-01 10:21] LABS: Basophils # (auto) 0 10 ^3/uL (0-0.2); Basophils % (auto) 0.6 % (0.0-2.0); Eosinophils # (auto) 0.1 10 ^3/uL (0-0.8); Eosinophils % (auto) 1.6 % (0.0-7.0); Hematocrit 38.3 % (41.0-53.0); Hemoglobin 12.7 g/dL (13.5-17.5); Lymphocytes # (auto) 1.4 10 ^3/uL (0.4-5.4); Mean Corpuscular Hemoglobin 30.1 pg (28.0-32.0); Mean Corpuscular Hgb Conc. 33.2 g/dL (32.0-36.0); Mean Corpuscular Volume 90.7 fL (80.0-100.0); Monocytes # (auto) 0.4 10 ^3/uL (0-1.3); Monocytes % (auto) 8.7 % (0.0-12.0); Neutrophils # (auto) 3.1 10 ^3/uL (1.6-8.6); Neutrophils % (auto) 61.1 % (37.0-80.0); Nucleated Red Blood Cells % 0.2 %; Red Blood Cells 4.22 10^6/uL (4.5-5.90); Red Cell Distribution Width 14.4 % (11.8-14.3); White Blood Cell 5.1 10^3/uL (4.4-10.8)
[2024-02-01 10:33] LABS: Free T4 (Free Thyroxine) 1.24 ng/dL (0.89-1.76)
[2024-02-01 10:36] LABS: Prostate Specific Antigen 0.03 ng/mL (0.0-4.0)
== END | disposition home or self-care (01) ==
LOC: LAB 09:09
PROVIDERS: ATTEND Nurse Practitioner Family
DX: E11.65 Type 2 diabetes mellitus with hyperglycemia (principal); I10 Essential (primary) hypertension; R35.1 Nocturia
CPT/HCPCS: 36415; 80053; 80061; 82043; 82570; 83036; 84153; 84439; 84443; 85025

== ENCOUNTER → 2024-05-08 | Outpatient (CLI) | payer MEDICARE, MEDICAID | END | disposition home or self-care (01) | LOC: XY 09:16 | PROVIDERS: ATTEND Nurse Practitioner Family | DX: R42 Dizziness and giddiness (principal) | CPT/HCPCS: 93886 ==

== ENCOUNTER → 2024-05-15 | Outpatient (CLI) | payer MEDICARE, MEDICAID | END | disposition home or self-care (01) | LOC: XYW 12:35 | PROVIDERS: ATTEND Nurse Practitioner Family | DX: I51.89 Other ill-defined heart diseases (principal); R42 Dizziness and giddiness | CPT/HCPCS: 93306 ==

== ENCOUNTER → 2024-06-12 | Outpatient (CLI) | payer MEDICARE, MEDICAID | END | disposition home or self-care (01) | LOC: LAB 09:06 | PROVIDERS: ATTEND Urology | DX: C61 Malignant neoplasm of prostate (principal) | CPT/HCPCS: 84153 ==

== ENCOUNTER → 2024-07-19 | Outpatient (CLI) | payer MEDICARE, MEDICAID ==
[2024-07-19 10:03] LABS: Basophils # (auto) 0 10 ^3/uL (0-0.2); Basophils % (auto) 0.8 % (0.0-2.0); Eosinophils # (auto) 0.2 10 ^3/uL (0-0.8); Hematocrit 34.9 % (41.0-53.0); Lymphocytes # (auto) 1.4 10 ^3/uL (0.4-5.4); Mean Corpuscular Hemoglobin 32.3 pg (28.0-32.0); Mean Corpuscular Hgb Conc. 34.4 g/dL (32.0-36.0); Mean Corpuscular Volume 93.7 fL (80.0-100.0); Monocytes # (auto) 0.4 10 ^3/uL (0-1.3); Monocytes % (auto) 9.3 % (0.0-12.0); Neutrophils % (auto) 50.9 % (37.0-80.0); Platelet Count (auto) 183 10^3/uL (140-450); Red Blood Cells 3.72 10^6/uL (4.5-5.90); Red Cell Distribution Width 13.8 % (11.8-14.3)
[2024-07-19 10:18] LABS: Alanine Aminotransferase 11 U/L (7-40); Albumin 4.3 g/dL (3.2-4.8); Alkaline Phosphatase 37 U/L (46-116); Anion Gap 6 (5-15); Aspartate Aminotransferase < 8 U/L (13-40); BUN/Creatinine Ratio 14.9 (10.0-20.0); Bilirubin, Direct 0.3 mg/dL (<0.3); Blood Urea Nitrogen 15 mg/dL (9-23); Calcium 9.7 mg/dL (8.7-10.4); Carbon Dioxide 29 mmol/L (20-31); Chloride 109 mmol/L (98-107); Cholesterol 111 mg/dL (< 200); Glucose 119 mg/dL (74-106); HDL Cholesterol 39 mg/dL (40-59); LDL Cholesterol 57 mg/dL (< 100); Sodium 144 mmol/L (136-145); Triglycerides 106 mg/dL (< 150)
[2024-07-19 10:19] LABS: Bilirubin, Total 0.9 mg/dL (0.2-1.0); Total Protein 6.7 g/dL (5.7-8.2)
[2024-07-20 12:07] LABS: PSA Free <0.02 ng/mL; Prostate Specific Antigen <0.1 ng/mL (0.0-4.0); Testosterone 189 ng/dL (264-916)
== END | disposition home or self-care (01) ==
LOC: LAB 09:28
PROVIDERS: ATTEND Internal Medicine
DX: E11.9 Type 2 diabetes mellitus without complications (principal); R94.6 Abnormal results of thyroid function studies; E78.00 Pure hypercholesterolemia, unspecified; E78.41 Elevated Lipoprotein(a); Z12.5 Encounter for screening for malignant neoplasm of prostate; D64.9 Anemia, unspecified; R79.9 Abnormal finding of blood chemistry, unspecified; E34.9 Endocrine disorder, unspecified
CPT/HCPCS: 36415; 80053; 80061; 80076; 82626; 83036; 84154; 84402; 84403; 84436; 84443; 84480; 85025

== ENCOUNTER 2024-09-11 14:46 | Inpatient (IN) | payer MEDICARE, MEDICAID ==
[~2024-09-11] VITALS: Ht 165.1 cm; Wt 84.2 kg
[~2024-09-11 14:46] MED LIST changes: +BUDE1AER4 IN; -FLUT1SPR5; +FLUT1SPR5 EACHNOSTRI
--- NOTE | 2024-09-11 15:45 | ED.PDOC ---
HPI Comments HPI: Poor Historian. 84-year-old male brought in by family members for evaluation of an episode at noon today where he was sitting down and eating and started feeling diaphoretic. Patient tried to get up and felt very lightheaded and weak and had to sit back down. Patient had associated a blurry vision and some discomfort in the back of his neck. Denies any other associated symptoms. Vitals: Temperature of 97.3F, pulse rate of 73, respiratory rate of 16, blood pressure 111/52, and pulse oximetry of 96% room air. Past Medical History: CVA, diabetes, asthma, hypertension, prostate, PA Past Surgical History: Eye surgery REVIEW OF SYSTEMS: CONSTITUTIONAL: Denies acute: fever, diaphoresis, chills, HEAD: Denies acute: headache, photophobia Eyes: Denies acute: Double vision, vision loss, eye pain, eye discharge. EARS: Denies acute: tinnitus, hearing loss, ear discharge, ear pain, THROAT: Denies acute: sore throat, swelling, difficulty swallowing , pain with swallowing, change in voice. NECK: Denies acute: neck pain, neck swelling, stiff neck. HEART: Denies acute : chest pain, palpitations, LUNGS: Denies acute: SOB, wheezing, cough, hemoptysis ABDOMEN: Denies acute: abdominal pain, Nausea, Vomiting, diarrhea, melena , hematemesis, hematochezia SKIN: Denies acute: rash, redness, lesions, itchiness. EXTREMITIES: Denies acute: calf pain, numbness, tingling, weakness, denies pain in extremity. Denies acute: Low back pain. Neuro: Denies acute: focal neurological deficit, motor or sensory focal neurological deficit, tremors, seizure like activity, confusion, change in mental status, loss of bowel or bladder function, cauda equina like symptoms. : Denies acute: dysuria, hematuria, flank pain, increase in urinary frequency. PSYCH: Denies acute: hallucination, suicidal ideation, homicidal ideation. PHYSICAL EXAM: General: no acute distress, awake and alert. Head: normocephalic, atraumatic. Neck: supple, trachea is midline, no swelling. Throat: Normal phonation. Eyes:, no erythema, no purulent discharge, no proptosis, no icterus. Heart: regular rate, regular rhythm, no significant murmur appreciated. Lungs: no apparent respiratory distress, Able to speak in full sentences. No wheezing, no rhonchi, no crackles. No stridors Clear to auscultation bilaterally. Abdomen: non tender to palpation, non distended, soft, no guarding, no rebound, + bowel sounds. Neuro: Awake, Alert, oriented to name, self, situation, follows commands GCS=15. Speech is normal. Skin: no petechia, no purpura, no cyanosis, non-pale, not jaundice. Lower extremities: --no - Pitting edema no deformity, no focal swelling, no calf TTP. Makes eye contact. moves all four extremities. Face: no apparent facial droop. Ambulating in the ED independently. Chief Complaint: Dizziness Time Seen by MD: 15:35 Primary Care Provider: SAMMI Reviewed Notes: Nurses Notes, Allergies Allergies: Coded Allergies: NO KNOWN ALLERGIES (Unverified , 04/27/19) Home Meds Reported Medications Lactulose (Lactulose) 10 Gm/15 Ml Tamra, 30 ML PO Q2DAYS 12/10/21 Albuterol Sulfate (Albuterol Sulfate Hfa) 108 Mcg/Act Aer, 2 PUFF INH Q4H 12/10/21 Mirabegron Base (MYRBETRIQ) 50 Mg Tab, 1 TAB PO DAILY 12/10/21 Nifedipine (Nifedipine Er) 90 Mg Tab, 1 TAB PO DAILY, #30 TAB 5 Refills 12/10/21 Fluticasone Propionate (Nasal) (Flonase Allergy Relief) 50 Mcg/Act Spr, 50 MCG NA DAILY, SPR 02/23/19 Doxazosin Mesylate (Doxazosin Mesylate) 4 Mg Tab, 1 TAB PO DAILY, #30 TAB 5 Refills 11/22/18 Dutasteride (Dutasteride) 0.5 Mg Cap, 0.5 MG PO PM, CAP 11/22/18 Lisinopril (Lisinopril) 40 Mg Tab, 1 TAB PO DAILY, #30 TAB 5 Refills 11/22/18 Information Source: Patient, Relative Mode of Arrival: Ambulatory EKG EKG : Pulse Rate (adult): 70 [place]: Normal Cardiac Rhythm: NSR Block: None Hypertrophy: None ST: Normal Was a procedure done? Was a procedure done?: No X-Ray, Labs, Meds, VS Vital Signs Date Time Temp Pulse Resp B/P (MAP) Pulse Ox O2 Delivery O2 Flow Rate FiO2 09/11/24 15:45 70 09/11/24 15:21 67 102/50 79 93/49 09/11/24 15:15 70 09/11/24 14:46 97.3 73 16 111/52 (71) 96 Lab Test 09/11/24 19:37 09/11/24 16:10 09/11/24 15:00 Range/Units Troponin I High Sensitivity < 3 L < 3 L </=54 ng/L White Blood Count 8.3 4.4-10.8 10^3/uL Red Blood Count 3.71 L 4.5-5.90 10^6/uL Hemoglobin 11.9 L 13.5-17.5 g/dL Hematocrit 34.8 L 41.0-53.0 % Mean Corpuscular Volume 93.8 80.0-100.0 fL Mean Corpuscular Hemoglobin 32.0 28.0-32.0 pg Mean Corpuscular Hemoglobin Concent 34.1 32.0-36.0 g/dL Red Cell Distribution Width 14.1 11.8-14.3 % Platelet Count 160 140-450 10^3/uL Mean Platelet Volume 9.1 6.9-10.8 fL Neutrophils (%) (Auto) 81.4 H 37.0-80.0 % Lymphocytes (%) (Auto) 10.9 10.0-50.0 % Monocytes (%) (Auto) 7.3 0.0-12.0 % Eosinophils (%) (Auto) 0.2 0.0-7.0 % Basophils (%) (Auto) 0.2 0.0-2.0 % Neutrophils # (Auto) 6.8 1.6-8.6 10 ^3/uL Lymphocytes # (Auto) 0.9 0.4-5.4 10 ^3/uL Monocytes # (Auto) 0.6 0-1.3 10 ^3/uL Eosinophils # (Auto) 0 0-0.8 10 ^3/uL Basophils # (Auto) 0 0-0.2 10 ^3/uL Nucleated Red Blood Cells 0.0 % Sodium Level 144 136-145 mmol/L Potassium Level 3.8 3.5-5.1 mmol/L Chloride Level 106 98-107 mmol/L Carbon Dioxide Level 30 20-31 mmol/L Anion Gap 8 5-15 Blood Urea Nitrogen 31 H 9-23 mg/dL Creatinine 1.40 H 0.700-1.30 mg/dL Glomerular Filtration Rate Calc 49 >90 mL/min BUN/Creatinine Ratio 22.1 H 10.0-20.0 Serum Glucose 112 H 74-106 mg/dL Lactic Acid Level 1.7 0.4-2.0 mmol/L Calcium Level 9.8 8.7-10.4 mg/dL Magnesium Level 2.4 1.6-2.6 mg/dL Total Bilirubin 0.5 0.2-1.0 mg/dL Aspartate Amino Transferase (AST) 11 L 13-40 U/L Alanine Aminotransferase (ALT) 15 7-40 U/L Alkaline Phosphatase 63 46-116 U/L B-Type Natriuretic Peptide 55.34 0-100 pg/mL Total Protein 6.2 5.7-8.2 g/dL Albumin 4.1 3.2-4.8 g/dL POC Glucose 218 H 70-106 mg/dl Current Medications Medications (Trade) Dose Ordered Sig/Serg Route Start Time Stop Time Status Last Admin Sodium Chloride 500 ml @ 500 mls/hr Q1H ONCE IV 09/11/24 18:45 09/11/24 19:44 DC 09/11/24 21:47 [place] [address] Ph: [phone] DIAGNOSTIC IMAGING Diagnostic Imaging Report : [id number] Signed PATIENT: ESTELA GOMEZ ACCT: [id number] UNIT: [id number] : 1940 LOC: ER ROOM / BED: / AGE / SEX: 84 / M ADM STATUS: REG ER SERVICE [id number] ORDERING PHYSICIAN: BRANDON SLATER DO PROCEDURE(s): CXRP - CHEST PORTABLE REASON: dizzy, weak, ORDER NUMBER(s): [id number], ACCESSION NUMBER(s): [id number] CHEST RADIOGRAPH Indication: dizzy, weak, Technique: Single frontal view of the chest was obtained COMPARISON: CXRP on DOS: 12/25/21, CHEST PORTABLE on DOS: 12/25/21, CXRP on DOS: 12/24/21 FINDINGS: Lines and Tubes: None Lungs: Bibasilar subsegmental atelectasis. Pleura: No effusion. No pneumothorax. Cardiomediastinal contours: Unremarkable Bones: Chronic appearing healed fractures of the left 6th and 7th ribs. IMPRESSION: Bibasilar subsegmental atelectasis. ATED BY: PABLO CORMIER MD DICTATED DATE/TIME: 09/11/241620 SIGNED BY: PABLO CORMIER MD SIGNED DATE/TIME: 09/11/24 162 CC: [place] [address] Ph: [phone] DIAGNOSTIC IMAGING Diagnostic Imaging Report : [id number] Signed PATIENT: ESTELA GOMEZ ACCT: [id number] UNIT: [id number] : 1940 LOC: ER ROOM / BED: / AGE / SEX: 84 / M ADM STATUS: REG ER SERVICE [id number] ORDERING PHYSICIAN: BRANDON SLATER DO PROCEDURE(s): ABPL - CT AB PEL WO CON-NO ORAL OR IV REASON: dizzy, weak, ORDER NUMBER(s): [id number], ACCESSION NUMBER(s): [id number] Exam: CT CT AB PEL WO CON-NO ORAL OR IV History: dizzy, weak, Comparison Study: None available TECHNIQUE: Multidetector CT of the abdomen and pelvis was performed from lung bases to pubic symphysis. Imaging was performed without IV contrast. Axial, coronal, and sagittal multiplanar reformats were obtained from the axial data set by the technologist. RADIATION DOSE: DLP 1093.16 mGy.cm; CTDI vol 20.48 mGy. Findings: Limited evaluation given noncontrast technique. Lungs: The lung bases are clear. Heart: No cardiomegaly. Small pericardial effusion. Liver: Unremarkable. Gallbladder: Cholelithiasis without evidence of acute cholecystitis. Spleen: Unremarkable Pancreas: Fatty infiltration of the pancreas. Adrenals: Unremarkable Kidneys: Unremarkable GI tract: Diverticulosis without evidence of acute diverticulitis. : The urinary bladder is decompressed. Vasculature: Unremarkable Lymphadenopathy: Absent Peritoneum: No ascites Musculoskeletal: Mild multilevel degenerative changes of the thoracolumbar spine. Soft tissues: Unremarkable Impression: 1. Limited evaluation given noncontrast technique. 2. No definite acute abdominopelvic abnormalities. 3. Cholelithiasis without evidence of acute cholecystitis. 4. Diverticulosis without evidence of acute diverticulitis. 5. Small pericardial effusion. ATED BY: KIMBERLEE DAO DO DICTATED DATE/TIME: 09/11/241706 SIGNED BY: KIMBERLEE DAO DO SIGNED DATE/TIME: 09/11/241706 CC: Time of 1ST Reevaluation: 15:35 Reevaluation 1ST: Unchanged Patient Education/Counseling: Diagnosis, Treatment Family Education/Counseling: No Family Present Departure 1 Departure Time of Disposition: 18:39 Impression: Primary Impression: Near syncope Additional Impression: Generalized weakness Disposition: ADMITTED INPATIENT Admit to: [facility] Condition: Guarded Discharged With: Self Critical Care Note Critical Care Time?: No Heart Score Heart Score: Heart Score Response (Comments) Value EKG Normal 0 Age >65 2 Total 2 I personally scribed for BRANDON SLATER DO ([email or web address]) on 09/11/24 at 15:45. Electronically submitted by Johnie Marie ([email or web address]). I personally scribed for BRANDON SLATER DO ([email or web address]) on 09/11/24 at 18:47. Electronically submitted by Fatoumata Quezada ([email or web address]). I personally scribed for BRANDON SLATER DO ([email or web address]) on 09/11/24 at 21:57. Electronically submitted by Fatoumata Quezada ([email or web address]). BRANODN SLATER DO Sep 11, 2024 15:45
--- NOTE | 2024-09-11 16:24 | DVH ---
CHEST RADIOGRAPH Indication: dizzy, weak, Technique: Single frontal view of the chest was obtained COMPARISON: CXRP on DOS: 12/25/21, CHEST PORTABLE on DOS: 12/25/21, CXRP on DOS: 12/24/21 FINDINGS: Lines and Tubes: None Lungs: Bibasilar subsegmental atelectasis. Pleura: No effusion. No pneumothorax. Cardiomediastinal contours: Unremarkable Bones: Chronic appearing healed fractures of the left 6th and 7th ribs. IMPRESSION: Bibasilar subsegmental atelectasis.
[2024-09-11 16:36] LABS: Basophils # (auto) 0 10 ^3/uL (0-0.2); Basophils % (auto) 0.2 % (0.0-2.0); Eosinophils # (auto) 0 10 ^3/uL (0-0.8); Eosinophils % (auto) 0.2 % (0.0-7.0); Hematocrit 34.8 % (41.0-53.0); Hemoglobin 11.9 g/dL (13.5-17.5); Lymphocytes # (auto) 0.9 10 ^3/uL (0.4-5.4); Lymphocytes % (auto) 10.9 % (10.0-50.0); Mean Corpuscular Hgb Conc. 34.1 g/dL (32.0-36.0); Mean Corpuscular Volume 93.8 fL (80.0-100.0); Monocytes # (auto) 0.6 10 ^3/uL (0-1.3); Monocytes % (auto) 7.3 % (0.0-12.0); Neutrophils # (auto) 6.8 10 ^3/uL (1.6-8.6); Neutrophils % (auto) 81.4 % (37.0-80.0); Platelet Count (auto) 160 10^3/uL (140-450); Red Blood Cells 3.71 10^6/uL (4.5-5.90); Red Cell Distribution Width 14.1 % (11.8-14.3); White Blood Cell 8.3 10^3/uL (4.4-10.8)
[2024-09-11 16:52] LABS: Alanine Aminotransferase 15 U/L (7-40); Albumin 4.1 g/dL (3.2-4.8); Alkaline Phosphatase 63 U/L (46-116); Anion Gap 8 (5-15); BUN/Creatinine Ratio 22.1 (10.0-20.0); Calcium 9.8 mg/dL (8.7-10.4); Carbon Dioxide 30 mmol/L (20-31); Chloride 106 mmol/L (98-107); Magnesium 2.4 mg/dL (1.6-2.6); Potassium 3.8 mmol/L (3.5-5.1); Sodium 144 mmol/L (136-145)
[2024-09-11 16:53] LABS: Bilirubin, Total 0.5 mg/dL (0.2-1.0); Total Protein 6.2 g/dL (5.7-8.2)
[2024-09-11 16:56] LABS: Aspartate Aminotransferase 11 U/L (13-40); Blood Urea Nitrogen 31 mg/dL (9-23); Glucose 112 mg/dL (74-106)
--- NOTE | 2024-09-11 17:09 | DVH ---
Exam: CT CT AB PEL WO CON-NO ORAL OR IV History: dizzy, weak, Comparison Study: None available TECHNIQUE: Multidetector CT of the abdomen and pelvis was performed from lung bases to pubic symphysi s. Imaging was performed without IV contrast. Axial, coronal, and sagittal multiplanar reformats were obtained from the axial data set by the technologist. RADIATION DOSE: DLP 1093.16 mGy.cm; CTDI vol 20.48 mGy. Findings: Limited evaluation given noncontrast technique. Lungs: The lung bases are clear. Heart: No cardiomegaly. Small pericardial effusion. Liver: Unremarkable. Gallbladder: Cholelithiasis without evidence of acute cholecystitis. Spleen: Unremarkable Pancreas: Fatty infiltration of the pancreas. Adrenals: Unremarkable Kidneys: Unremarkable GI tract: Diverticulosis without evidence of acute diverticulitis. : The urinary bladder is decompressed. Vasculature: Unremarkable Lymphadenopathy: Absent Peritoneum: No ascites Musculoskeletal: Mild multilevel degenerative changes of the thoracolumbar spine. Soft tissues: Unremarkable Impression: 1. Limited evaluation given noncontrast technique. 2. No definite acute abdominopelvic abnormalities. 3. Cholelithiasis without evidence of acute cholecystitis. 4. Diverticulosis without evidence of acute diverticulitis. 5. Small pericardial effusion.
[2024-09-11] MEDS: SODIUM CHLORIDE 0.9% 500 ML IV ONE (18:45)
[2024-09-11] MEDS ORDERED: MORPHINE SULFATE INJ 2 MG/ml SYRG IV PRN (21:45)
[2024-09-11] MEDS ORDERED: NITROGLYCERIN 0.4 MG SL TAB SL PRN (21:45)
[2024-09-11 22:23] LABS: Urine Bacteria None Seen /hpf (None Seen); Urine WBC None Seen /hpf (0 - 3)
[2024-09-11 22:33] LABS: Urine Blood Negative /uL (Negative); Urine Clarity Clear (Clear); Urine Color Colorless (Yellow); Urine Protein, UAD Negative (Negative); Urine Urobilinogen Normal (Negative)
--- NOTE | 2024-09-11 22:35 | DVHHPRES ---
History of Present Illness Resident Creating Document: JASWANT DUNHAM RESIDENT History of Present Illness patient is a 84 y/o male with a past medical history of Hypertension, prostate cancer s/p radiation 3years ago, multiple left sided ribs fracture s/p mechanical fall, asthma came to the ED with the chief complaint of episode of dizziness and weakness in the afternoon. Patient reports he was sitting at the dining table and felt a pressure like sensation in his neck, had sweating on his torso, felt dizzy and when he tried to get up to move he felt weakness in his legs and had to hold the table, the episode of dizziness and weakness lasted less than 5 mins. Patient denied sensation of room spinning, sensation of passing out or loss of consciousness. He felt weak in his legs and had to sit down. Patient was feeling constipated for which he was reportedly given "fluid which is used before colonoscopy" and he drank the entire gallon on following which he had multiple episodes of loose watery stools on and wednesday. He denied feeling weak from until wednesday. patient also has increased frequency of urination and has nocturia 5-6 times at night. He denied chest pain, headache, blurry vision, falls, nausea or vomiting. Orthostatic vitals Sitting BP- 145/76 mmhg, HR 84/min Standing BP- 146/76mmhg, HR 86/min Home medications: [id number]/Formetrol 4.5 IN 2 puffs bid, doxazosin 4mg qd, dutasteride 0.5mg qd, nifedipine 90mg er. fluticasone 50mcg IN prn Cardiovascular: HTN Pulmonary: Asthma GI: Constipation Renal/: Other (prostate Ca s/p radiation) Past Surgical History: None Family History: None Smoke: Quit ALCOHOL: none Drugs: None Lives: with Family Review of Systems Constitutional: Yes: Weakness Genitourinary: Frequency Allergies: Coded Allergies: NO KNOWN ALLERGIES (Unverified , 04/27/19) Medications Current Medications Medications Dose Ordered Sig/Serg Route Start Time Stop Time Status Last Admin Dose Admin Nitroglycerin 0.4 mg Q5MINP PRN SL 09/11/24 21:45 Morphine Sulfate 2 mg Q30M PRN IV 09/11/24 21:45 Exam Vital Signs Vital Signs Date Time Temp Pulse Resp B/P (MAP) Pulse Ox O2 Delivery O2 Flow Rate FiO2 09/11/24 15:45 70 09/11/24 15:21 102/50 93/49 09/11/24 14:46 97.3 16 96 General Appearance: Alert, Oriented X3, Cooperative, No acute distress HEENT: Atraumatic, PERRLA, EOMI, Mucous membr. moist/pink Respiratory: Clear to auscultation, Normal air movement Cardiovascular: Regular rate, Normal S1, Normal S2, No murmurs Abdominal: Normal bowel sounds, Soft, No tenderness, No hepatospenomegaly Extremities: No clubbing, No cyanosis, No edema, Normal pulses, No tenderness/swelling Skin: No rashes, No breakdown Neuro: Normal gait, Normal speech, Strength at 5/5 X4 ext, Normal tone, Sensat ion intact, Cranial nerves 3-12 NL, Reflexes 2+ Psych/Mental Status: Mental status NL, Mood NL Labs/Xrays Labs Test 09/11/24 19:37 09/11/24 16:10 09/11/24 15:00 Range/Units Troponin I High Sensitivity < 3 L </=54 ng/L White Blood Count 8.3 4.4-10.8 10^3/uL Red Blood Count 3.71 L 4.5-5.90 10^6/uL Hemoglobin 11.9 L 13.5-17.5 g/dL Hematocrit 34.8 L 41.0-53.0 % Mean Corpuscular Volume 93.8 80.0-100.0 fL Mean Corpuscular Hemoglobin 32.0 28.0-32.0 pg Mean Corpuscular Hemoglobin Concent 34.1 32.0-36.0 g/dL Red Cell Distribution Width 14.1 11.8-14.3 % Platelet Count 160 140-450 10^3/uL Mean Platelet Volume 9.1 6.9-10.8 fL Neutrophils (%) (Auto) 81.4 H 37.0-80.0 % Lymphocytes (%) (Auto) 10.9 10.0-50.0 % Monocytes (%) (Auto) 7.3 0.0-12.0 % Eosinophils (%) (Auto) 0.2 0.0-7.0 % Basophils (%) (Auto) 0.2 0.0-2.0 % Neutrophils # (Auto) 6.8 1.6-8.6 10 ^3/uL Lymphocytes # (Auto) 0.9 0.4-5.4 10 ^3/uL Monocytes # (Auto) 0.6 0-1.3 10 ^3/uL Eosinophils # (Auto) 0 0-0.8 10 ^3/uL Basophils # (Auto) 0 0-0.2 10 ^3/uL Nucleated Red Blood Cells 0.0 % Sodium Level 144 136-145 mmol/L Potassium Level 3.8 3.5-5.1 mmol/L Chloride Level 106 98-107 mmol/L Carbon Dioxide Level 30 20-31 mmol/L Anion Gap 8 5-15 Blood Urea Nitrogen 31 H 9-23 mg/dL Creatinine 1.40 H 0.700-1.30 mg/dL Glomerular Filtration Rate Calc 49 >90 mL/min BUN/Creatinine Ratio 22.1 H 10.0-20.0 Serum Glucose 112 H 74-106 mg/dL Lactic Acid Level 1.7 0.4-2.0 mmol/L Calcium Level 9.8 8.7-10.4 mg/dL Magnesium Level 2.4 1.6-2.6 mg/dL Total Bilirubin 0.5 0.2-1.0 mg/dL Aspartate Amino Transferase (AST) 11 L 13-40 U/L Alanine Aminotransferase (ALT) 15 7-40 U/L Alkaline Phosphatase 63 46-116 U/L B-Type Natriuretic Peptide 55.34 0-100 pg/mL Total Protein 6.2 5.7-8.2 g/dL Albumin 4.1 3.2-4.8 g/dL POC Glucose 218 H 70-106 mg/dl Assessment/Plan Assessment/Plan Assessment and Plan # Presyncope - CT head without contrast shows No acute intracranial abnormality. Mild chronic small vessel ischemic disease. - Carotid doppler shows no No hemodynamically significant stenoses or occlusions identified. - recent echo shows normal LVEF 55% - EKG shows sinus rhythm - no orthostatic hypotension # TUNDE likely hemodynamically mediated - Serum creatinine 1.4 - BUN/ Cr ratio 22:1 - FeNa 2.5% - Renal US shows Right kidney measures 10.2 cm in length. The left kidney measures 9.9 cm in length.Normal cortical thickness and echogenicity bilaterally. No hydronephrosis. Bladder is underdistended with 42.13 mL prevoid volume. Prostate volume measures approximately 29 mL. # Generalised weakness # Vitamin B12 level low, replenished # Vitamin D deficiency, replenished - TSH - normal # Hypertensive heart disease - recent ECHO shows LVEF 55%, grade 1 diastolic dysfunction. Normal ventricular size and dimension. Normal right ventricular systolic function. Normal biatrial size and dimension. normal valvular structure and function - on nifedipine 60mg # H/o Prostate CA s/p radiation - at home on doxazosin 4mg qpm and dutasteride 0.5mg qd - Renal US Bladder is underdistended with 42.13 mL prevoid volume. Prostate volume measures approximately 29 mL. # H/o Asthma - continued on budesonide 160/ formoterol 4.5 INH 2 puffs bid Goals of care discussed with the patient and daughter for over 33mins. Plan discussed with Plan discussed with: Patient, Daughter My Orders Orders - JASWANT DUNHAM Procedure Category Date Status Time Head Without Contrast CT 09/11/24 Logged 21:49 Carotid Duplx W Color US 09/11/24 Logged DOP 21:49 Drug Screen LAB 09/11/24 Logged 21:49 Urine LAB 09/11/24 Logged Protein/Creatinine Urine Sodium LAB 09/11/24 Logged 21:49 Vitamin B12 LAB 09/11/24 Logged 21:49 Vitamin D, 25-Hydroxy LAB 09/11/24 Logged 21:49 Thyroid Stimulating LAB 09/11/24 Logged Hormone 21:49 Kidney US 09/11/24 Logged 21:49 Date of Service: Sep 11, 2024 Billing Provider: RICCO LAMAS MD Common Visit Codes: 86236-BOLBDMD INP/OBS CARE (HIGH) Secondary Visit Codes: 67148-[id number] CARE PLAN 30 MINUTES JASWANT DUNHAM RESIDENT Sep 11, 2024 22:35 RICCO LAMAS MD Sep 12, 2024 19:23
[2024-09-11 22:42] LABS: Protein, Urine 8.4 mg/dL (1-14)
[2024-09-11 22:44] LABS: Creatinine, Urine 36.31 mg/dL (30.0-125.0); Urine Protein/Creatinine Ratio 0.23
[2024-09-11 22:45] LABS: Amphetamine Screen, Urine Neg (NEGATIVE); Barbiturate Scree,Urine Neg (NEGATIVE); Benzodiazephine Screen, Urine Neg (NEGATIVE); Cannabinoid Screen, Urine Neg (NEGATIVE); Cocaine Screen, Urine Neg (NEGATIVE); Opiate Scree,Urine Neg (NEGATIVE); Phencyclidine Screen, Urine Neg (NEGATIVE)
[2024-09-11 22:46] VITALS: PULSE 80; RESP 18; O2SAT 98
--- NOTE | 2024-09-11 23:13 | DVH ---
CT HEAD WITHOUT CONTRAST INDICATION: lower ext. weakness EXAM DATE: 09/11/2024 10:33 PM COMPARISON: HEAD WITHOUT CONTRAST on DOS: 12/19/21 RADIATION DOSE: CTDIvol: 57.18 mGy, DLP: 916.62 mGy*cm PROCEDURE: CT scans of the head were obtained from the vertex to the skull base. Sagittal and coronal reconstructions were provided. All CT scans at this medical facility are performed using dose modulation techniques as appropriate t o a performed exam including the following: Automated exposure control was utilized; adjustment of th e MA and/or KV according to patient size; and use of iterative reconstruction technique. FINDINGS: There is sulcal and ventricular prominence. The brainshows normal morphology and friedman-whi te matter differentiation, without intracranial hemorrhage, extra-axial fluid collection, mass effect or acute large vessel infarct. The ventricles are normal in size. The basal cisterns are patent. The skull and visible facial bones are intact. The paranasal sinuses, mastoid air cells and middle ear c avities are well-aerated. The soft tissues of the scalp are unremarkable. IMPRESSION: No acute intracranial abnormality. Mild chronic small vessel ischemic disease.
--- NOTE | 2024-09-11 23:14 | DVH ---
Carotid Doppler Examination CLINICAL HISTORY: dizziness TECHNIQUE: Real-time high resolution grayscale imaging and color Doppler flow imaging with pulsed du plex sonography of the carotid and vertebral arteries is performed. Velocity criteria are extrapolated from angiographic diameter data as defined by the Society of Radio logists in Ultrasound Consensus Conference (Radiology 2003; 229: 340-346). Comparison: 08/22/2024. FINDINGS: Bilateral internal carotid arteries are tortuous. There is no significant friedman scale stenosis. No si gnificant plaque is noted in the distal common or internal carotid arteries bilaterally. Arterial wa veforms are satisfactory. Antegrade flow is noted in the bilateral vertebral arteries. Peak systolic velocities (cm/s): Right ICA proximal:42.7 Right ICA mid:50.5 Right ICA distal:63.6 Right systolic ICA/CCA ratio:0.9 Left ICA proximal:62.0 Left ICA mid:52.9 Left ICA distal:46.5 Left systolic ICA/CCA ratio:1.0 IMPRESSION: No hemodynamically significant stenoses or occlusions identified.
[2024-09-12] VITALS (9 sets, daily range): BP systolic 149–161; BP diastolic 72–82; PULSE 59–96; RESP 12–20; TEMP 97.9–98.5; O2SAT 94–98
[2024-09-12] MEDS: SODIUM CHLORIDE 0.9% 1,000 ML IV SCH (00:03)
--- NOTE | 2024-09-12 01:13 | DVH ---
INDICATION: h/o prostate ca. hydronephrosis TECHNIQUE: Multiple real-time sonographic images of the kidneys and bladder were obtained. COMPARISON: CT abdomen and pelvis obtained earlier 09/11/2024. FINDINGS: The right kidney measures 10.2 cm in length. The left kidney measures 9.9 cm in length.Normal cortic al thickness and echogenicity bilaterally. No hydronephrosis. Bladder is underdistended with 42.13 mL prevoid volume. Prostate volume measures approximately 29 mL. IMPRESSION: No sonographic evidence of hydronephrosis. Prostate volume 29 mL. HS:Y
[2024-09-12] MEDS: CYANOCOBALAMIN 500 MCG TAB PO ONE (02:00)
[2024-09-12 05:58] LABS: Basophils # (auto) 0 10 ^3/uL (0-0.2); Basophils % (auto) 0.3 % (0.0-2.0); Eosinophils # (auto) 0.1 10 ^3/uL (0-0.8); Eosinophils % (auto) 0.9 % (0.0-7.0); Hematocrit 34.2 % (41.0-53.0); Hemoglobin 11.6 g/dL (13.5-17.5); Lymphocytes # (auto) 1.5 10 ^3/uL (0.4-5.4); Lymphocytes % (auto) 25.8 % (10.0-50.0); Mean Corpuscular Hemoglobin 31.9 pg (28.0-32.0); Mean Corpuscular Hgb Conc. 33.8 g/dL (32.0-36.0); Mean Corpuscular Volume 94.3 fL (80.0-100.0); Monocytes # (auto) 0.5 10 ^3/uL (0-1.3); Monocytes % (auto) 8.9 % (0.0-12.0); Neutrophils # (auto) 3.8 10 ^3/uL (1.6-8.6); Neutrophils % (auto) 64.1 % (37.0-80.0); Platelet Count (auto) 155 10^3/uL (140-450); Red Blood Cells 3.62 10^6/uL (4.5-5.90); Red Cell Distribution Width 13.8 % (11.8-14.3)
[2024-09-12 06:05] LABS: Anion Gap 6 (5-15); Carbon Dioxide 29 mmol/L (20-31); Potassium 3.7 mmol/L (3.5-5.1); Sodium 143 mmol/L (136-145)
[2024-09-12 06:06] LABS: Calcium 9.6 mg/dL (8.7-10.4)
[2024-09-12 06:11] LABS: BUN/Creatinine Ratio 18.2 (10.0-20.0); Blood Urea Nitrogen 18 mg/dL (9-23)
[2024-09-12 06:15] LABS: Chloride 108 mmol/L (98-107); Glucose 113 mg/dL (74-106)
[2024-09-12] MEDS: ERGOCALCIFEROL 50,000 UNIT(1.25MG) CAP PO SCH (06:20)
[2024-09-12] MEDS: FORMOTEROL PO SCH (10:00)
[2024-09-12] MEDS ORDERED: NIFEdipine ER 30 MG TAB PO SCH (10:00)
[2024-09-12] MEDS: BUDESONIDE PO SCH (10:00)
--- NOTE | 2024-09-12 10:47 | ECG ---
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
--- NOTE | 2024-09-12 10:47 | ECG ---
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
[2024-09-12] MEDS: NIFEdipine ER 30 MG TAB PO SCH (11:48)
--- NOTE | 2024-09-12 14:34 | DVHPNRES ---
Progress Note Date Seen: Sep 12, 2024 Resident Creating Document: GIANLUCA PIPER RESIDENT Has the PT tested + for MRSA If YES, has PT been informed?: No Medical Necessity Reason Pt with a Central, PICC or Fol: No Subjective Review of Systems 84-year-old male patient with past medical history significant for prostate cancer status post radiation 3 years ago, hypertension, multiple rib fractures from previous falls, asthma and type 2 diabetes (hemoglobin A1c: 6.4). He presented to the emergency department with a chief complaint of sudden onset dizziness and weakness while eating with his daughter. This episode began abruptly, with a sensation of lower extremity weakness, causing him to almost fall, but he grabbed a chair for support and recovered quickly. He denies loss of consciousness, chest pain, palpitation, shortness of breath, fever, infection or focal neurological deficits during or after the event. He reports a recent history of taking a liquid laxative on to cleanse his stomach, resulting in mild diarrhea that resolved without further issues. On Wednesday and Wednesday he felt completely normal. Head CT showed chronic ischemic changes an abdominal CT showed diverticulosis and mild pericardial effusion and cholelithiasis. Home medications: Nifedipine 90 mg, ergocalciferol, doxazosin, dutasteride and, formoterol/budesonide Patient was examined at bedside he reports not having any acute complaint, reports feeling better. Recent PTH level was elevated and vitamin-D was low, PSH levels are pending. Review of systems: Constitutional: No: Fever, Chills, Sweats, Weakness, Malaise, Other Eyes: No: Pain, Vision change, Conjunctivae inflammation, Eyelid inflammation, Other, Redness ENT: No: Ear pain, Ear discharge, Nose pain, Nose discharge, Nose congestion, Mouth pain, Mouth swelling, Throat pain, Throat swelling, Other Respiratory: No Wheezing, Hemoptysis, Pleuritic Pain, Sputum, Wheezing, Other Cardiovascular: No: Chest Pain, Palpitations, Orthopnea, Paroxysmal Noc. Dyspnea, Edema, Lt Headedness, Other Gastrointestinal: No: Nausea, Vomiting, Abdominal Pain, Diarrhea, Constipation, Melena, Hematochezia, Other Musculoskeletal: No: other, neck pain, shoulder pain, arm pain, back pain, hand pain, leg pain, foot pain Neurological:; No: Weakness, Numbness, Incoordination, Change in speech, Confusion, Seizures Patient reports: Feels better Changes from previous H/P or p: Changes Objective vital signs Vital Sign Date Time Temp Pulse Resp B/P (MAP) Pulse Ox O2 Delivery O2 Flow Rate FiO2 09/12/24 11:48 156/77 09/12/24 09:00 97.9 70 18 94 97.9 09/12/24 02:50 Room Air* 0 21 Total Intake and Output 09/11/24 09/11/24 09/12/24 15:00 23:00 07:00 Intake Total 150 ml Output Total 1320 ml Balance -1170 ml medications Current Medications Medications Dose Ordered Sig/Serg Route Start Time Stop Time Status Last Admin Dose Admin Nitroglycerin 0.4 mg Q5MINP PRN SL 09/11/24 21:45 Morphine Sulfate 2 mg Q30M PRN IV 09/11/24 21:45 Sodium Chloride 1,000 ml @ 60 mls/hr [id number] IV 09/11/24 22:45 09/12/24 00:03 60 MLS/HR Ergocalciferol 50,000 unit Q7D PO 09/12/24 02:00 09/12/24 06:20 50,000 UNIT Patient Own Medication 1 BID PO 09/12/24 10:00 Nifedipine 90 mg DAILY PO 09/12/24 06:45 09/12/24 11:48 90 MG Examination Examination General Appearance: Alert, Oriented X3, Cooperative, No acute distress HEENT: EOMI Respiratory: Clear to auscultation, Normal air movement Cardiovascular: Regular rate, Normal S1, Normal S2 Abdominal: Normal bowel sounds Extremities: No cyanosis, No edema, Normal pulses, No tenderness/swelling Skin: No rashes, No breakdown Neuro: Normal gait, Normal speech, Strength at 5/5 X4 ext, Normal tone, Sensation intact, Cranial nerves 3-12 NL, Reflexes 2+ Psych/Mental Status: Mental status NL, Mood NL laboratory and microbiology Laboratory Tests 09/12/24 04:46 Test 09/12/24 04:46 Range/Units Serum Glucose 113 H 74-106 mg/dL Problem List/Assessment/Plan Problem List/Assessment/Plan # Presyncope likely due to dehydration, stroke was ruled out based on recent CT head - CT head without contrast shows No acute intracranial abnormality. Mild chronic small vessel ischemic disease. - Carotid doppler shows no No hemodinamically significant stenoses or occlusions identified. - recent echo shows normal LVEF 55% - EKG shows sinus rhythm -IV fluids, normal saline 60 mL/hour # intrarenal TUNDE likely hemodynamically mediated due to via VMN - Serum creatinine 1.4 - BUN/ Cr ratio 22:1 - FeNa 2.5% - Renal US shows Right kidney measures 10.2 cm in length. The left kidney measures 9.9 cm in length.Normal cortical thickness and echogenicity bilaterally. No hydronephrosis. Bladder is underdistended with 42.13 mL prevoid volume. Prostate volume measures approximately 29 mL. # Generalized weakness likely due to dehydration # Vitamin B12 level low, replenished # Vitamin D deficiency, replenished - TSH normal # rule out osteoporosis based on history of multiple rib fracture, low vitamin-D and high PTH Follow-up with primary care doctor Consider DEXA scan # essential hypertension - nifedipine xl 90mg # H/o Prostate CA s/p radiation - continue home meds, doxazosin 4mg qpm and dutasteride 0.5mg qd - Prostate volume measures approximately 29 mL. # H/o Asthma - continued on budesonide 160/ formoterol 4.5 INH 2 puffs bid # obesity type 1 -Lifestyle and dietary habits modification counseling # prediabetes, hemoglobin A1c 6.4% -Lifestyle and dietary habits modification counseling -follow-up with primary care doctor # diverticulosis without diverticulitis based on CT scan Follow-up primary care doctor #cholelithiasis without acute cholecystitis Follow-up with primary care doctor #mild pericardial effusion -monitor Case discussed with Dr. Dwyer Goals of care discussed with the patient for 34 minutes Code status: Full code Plan discussed with: Patient My Orders My Orders Orders - GIANLUCA PIPER Procedure Category Date Status Time Nifedipine Er PHA 09/12/24 In Process (Procardia Xl 06:45 Psa Total+% Free LAB 09/12/24 In Process 08:38 Date of Service: Sep 12, 2024 Billing Provider: KIN DWYER MD Common Visit Codes: 54086-[id number] INP/OBS CARE(HIGH) Secondary Visit Codes: 04356-YPEILMPR CARE PLAN 30 MINUTES GIANLUCA PIPER RESIDENT Sep 12, 2024 14:34 KIN DWYER MD Sep 12, 2024 19:26
[2024-09-12 21:05] LABS: COVID19 ANTIGEN SOFIA FIA NEGATIVE (NEGATIVE); Rapid Influenza A Negative (Negative); Rapid Influenza B Negative (Negative)
[2024-09-13 01:00] VITALS: BP 141/75; PULSE 58; RESP 18; TEMP 98.3; O2SAT 95
[2024-09-13 05:00] VITALS: BP 126/54; PULSE 57; RESP 17; TEMP 98.1; O2SAT 95
[2024-09-13 07:56] LABS: Anion Gap 6 (5-15); Carbon Dioxide 28 mmol/L (20-31); Potassium 3.7 mmol/L (3.5-5.1); Sodium 142 mmol/L (136-145)
[2024-09-13 07:58] LABS: Calcium 9.7 mg/dL (8.7-10.4)
[2024-09-13 08:00] VITALS: PULSE 53
[2024-09-13 08:01] LABS: Chloride 108 mmol/L (98-107)
[2024-09-13 08:02] LABS: Glucose 106 mg/dL (74-106)
[2024-09-13 08:03] LABS: BUN/Creatinine Ratio 15.1 (10.0-20.0); Blood Urea Nitrogen 14 mg/dL (9-23)
[2024-09-13 08:06] LABS: PSA Free <0.02 ng/mL; Prostate Specific Antigen <0.1 ng/mL (0.0-4.0)
[2024-09-13 09:38] VITALS: BP 142/63; PULSE 52; RESP 17; TEMP 98; O2SAT 97
[2024-09-13 10:14] VITALS: BP 142/63; PULSE 72; RESP 17; TEMP 98; O2SAT 97
--- NOTE | 2024-09-13 16:40 | DVHDSRES ---
Discharge Summary Date of Admission Resident Creating Document: GIANLUCA PIPER RESIDENT Sep 11, 2024 at 21:39 Date of Discharge: Sep 13, 2024 Admitting Diagnosis Presyncope likely due to dehydration, rule out stroke Labs/Diagnostic Data: Laboratory Results Test 09/13/24 07:09 09/12/24 17:00 09/12/24 04:46 09/11/24 20:24 Sodium Level 142 mmol/L (136-145) Potassium Level 3.7 mmol/L (3.5-5.1) Chloride Level 108 mmol/L (98-107) Carbon Dioxide Level 28 mmol/L (20-31) Anion Gap 6 (5-15) Blood Urea Nitrogen 14 mg/dL (9-23) Creatinine 0.93 mg/dL (0.700-1.30) Glomerular Filtration Rate Calc 80 mL/min (>90) BUN/Creatinine Ratio 15.1 (10.0-20.0) Serum Glucose 106 mg/dL (74-106) Calcium Level 9.7 mg/dL (8.7-10.4) Influenza Type A Antigen Negative (Negative) Influenza Type B Antigen Negative (Negative) SARS-CoV-2 Antigen (Rapid) Negative (NEGATIVE) White Blood Count 6.0 10^3/uL (4.4-10.8) Red Blood Count 3.62 10^6/uL (4.5-5.90) Hemoglobin 11.6 g/dL (13.5-17.5) Hematocrit 34.2 % (41.0-53.0) Mean Corpuscular Volume 94.3 fL (80.0-100.0) Mean Corpuscular Hemoglobin 31.9 pg (28.0-32.0) Mean Corpuscular Hemoglobin Concent 33.8 g/dL (32.0-36.0) Red Cell Distribution Width 13.8 % (11.8-14.3) Platelet Count 155 10^3/uL (140-450) Mean Platelet Volume 9.3 fL (6.9-10.8) Neutrophils (%) (Auto) 64.1 % (37.0-80.0) Lymphocytes (%) (Auto) 25.8 % (10.0-50.0) Monocytes (%) (Auto) 8.9 % (0.0-12.0) Eosinophils (%) (Auto) 0.9 % (0.0-7.0) Basophils (%) (Auto) 0.3 % (0.0-2.0) Neutrophils # (Auto) 3.8 10 ^3/uL (1.6-8.6) Lymphocytes # (Auto) 1.5 10 ^3/uL (0.4-5.4) Monocytes # (Auto) 0.5 10 ^3/uL (0-1.3) Eosinophils # (Auto) 0.1 10 ^3/uL (0-0.8) Basophils # (Auto) 0 10 ^3/uL (0-0.2) Nucleated Red Blood Cells 0.0 % Hemoglobin A1c 6.4 % A1C (<5.7) Free Prostate Specific Antigen <0.02 ng/mL (N/A) Percent Free Prostate Specific Ag % (.) Prostate Specific Antigen Total <0.1 ng/mL (0.0-4.0) Parathyroid Hormone (Intact) 97.5 pg/mL (18.4-80.1) Urine Color Colorless (Yellow) Urine Clarity Clear (Clear) Urine pH 7.0 (5.0-9.0) Urine Specific [place] 1.010 (1.001-1.035) Urine Protein Negative (Negative) Urine Ketones Negative (Negative) Urine Blood Negative /uL (Negative) Urine Nitrite Negative (Negative) Urine Bilirubin Negative (Negative) Urine Urobilinogen Normal mg/dL (Negative) Urine Leukocyte Esterase Negative /uL (Negative) Urine RBC None seen /hpf (0 - 3) Urine WBC None seen /hpf (0 - 3) Urine Squamous Epithelial Cells None seen /hpf (<5) Urine Bacteria None seen /hpf (None Seen) Urine Creatinine 36.31 mg/dL (30.0-125.0) Urine Protein/Creatinine Ratio 0.23 Urine Sodium 93 mmol/L (40-220) Urine Glucose Normal mg/dL (Normal) Urine Total Protein 8.4 mg/dL (1-14) Urine Opiates Screen Neg (NEGATIVE) Urine Fentanyl Screen Neg (NEGATIVE) Urine Barbiturates Screen Neg (NEGATIVE) Urine Phencyclidine Screen Neg (NEGATIVE) Urine Amphetamines Screen Neg (NEGATIVE) Urine Benzodiazepines Screen Neg (NEGATIVE) Urine Cocaine Screen Neg (NEGATIVE) Urine Cannabinoids Screen Neg (NEGATIVE) Test 09/11/24 19:37 09/11/24 16:10 09/11/24 15:00 Troponin I High Sensitivity < 3 ng/L (</=54) Thyroid Stimulating Hormone (TSH) 1.30 uIU/mL (0.55-4.78) Lactic Acid Level 1.7 mmol/L (0.4-2.0) Magnesium Level 2.4 mg/dL (1.6-2.6) Total Bilirubin 0.5 mg/dL (0.2-1.0) Aspartate Amino Transferase (AST) 11 U/L (13-40) Alanine Aminotransferase (ALT) 15 U/L (7-40) Alkaline Phosphatase 63 U/L (46-116) B-Type Natriuretic Peptide 55.34 pg/mL (0-100) Total Protein 6.2 g/dL (5.7-8.2) Albumin 4.1 g/dL (3.2-4.8) Vitamin B12 Level 216 pg/mL (211-911) Vitamin D 25-Hydroxy 22.3 ng/mL (30.0-100) POC Glucose 218 mg/dl (70-106) Other Laboratory Tests 09/13/24 07:09 09/12/24 04:46 Brief Hx & Hospital Course: HPI: 84-year-old male patient with past medical history of prostate cancer status post radiation therapy 3 years ago, hypertension, type 2 diabetes hemoglobin A1c 6.4% and multiple rib fractures from previous falls, presented with sudden onset dizziness and weakness while eating. Patient reported an acute onset of lower extremity weakness causing near collapse which he attributes to a potential syncope episode. Denied loss of consciousness, chest pain, shortness of breaths, fever or focal neurological deficits during or after the episode. Head CT revealed chronic ischemic changes, abdominal CT showed diverticulosis, mild pericardial effusion without evidence of acute abnormalities. Recent lab results revealed elevated PTH levels and vitamin-D deficiency and PSA was normal. The patient was monitored closely for any neurological or cardiac event. Symptoms resolved quickly without intervention and the patient denied any acute complaints during the hospital stay. Reports feeling well by discharge. Disposition Patient in stable condition for discharge to home, patient was educated on medication adherence, lifestyle modification and importance of follow-up visit. He verbalized understanding and agreement with the plan. Goals of care discussed with the patient for 32 minutes Case discussed with Dr. Dwyer Code status: Full code Operations or Procedures [facility] [id number] [place] [address] Ph: [phone] DIAGNOSTIC IMAGING Diagnostic Imaging Report : [id number] Signed PATIENT: YANNA GOMEZOACCT: [id number] UNIT: [id number] : 1940 LOC: ER ROOM / BED: / AGE / SEX: 84 / M ADM STATUS: REG ER SERVICE [id number] ORDERING PHYSICIAN: BRANDON SLATER DO PROCEDURE(s): ABPL - CT AB PEL WO CON-NO ORAL OR IV REASON: dizzy, weak, ORDER NUMBER(s): [id number], ACCESSION NUMBER(s): [id number] Exam: CT CT AB PEL WO CON-NO ORAL OR IV History: dizzy, weak, Comparison Study: None available TECHNIQUE: Multidetector CT of the abdomen and pelvis was performed from lung bases to pubic symphysis. Imaging was performed without IV contrast. Axial, coronal, and sagittal multiplanar reformats were obtained from the axial data set by the technologist. RADIATION DOSE: DLP 1093.16 mGy.cm; CTDI vol 20.48 mGy. Findings: Limited evaluation given noncontrast technique. Lungs: The lung bases are clear. Heart: No cardiomegaly. Small pericardial effusion. Liver: Unremarkable. Gallbladder: Cholelithiasis without evidence of acute cholecystitis. Spleen: Unremarkable Pancreas: Fatty infiltration of the pancreas. Adrenals: Unremarkable Kidneys: Unremarkable GI tract: Diverticulosis without evidence of acute diverticulitis. : The urinary bladder is decompressed. Vasculature: Unremarkable Lymphadenopathy: Absent Peritoneum: No ascites Musculoskeletal: Mild multilevel degenerative changes of the thoracolumbar spine. Soft tissues: Unremarkable Impression: 1. Limited evaluation given noncontrast technique. 2. No definite acute abdominopelvic abnormalities. 3. Cholelithiasis without evidence of acute cholecystitis. 4. Diverticulosis without evidence of acute diverticulitis. 5. Small pericardial effusion. ATED BY: KIMBERLEE DAO DO DICTATED DATE/TIME: 09/11/241706 SIGNED BY: KIMBERLEE DAO DO SIGNED DATE/TIME: 09/11/241706 CC: [address] [address] Ph: [phone] DIAGNOSTIC IMAGING Diagnostic Imaging Report : [id number] Signed PATIENT: BRI GOMEZCT: [id number] UNIT: [id number] : 1940 LOC: ER ROOM / BED: / AGE / SEX: 84 / M ADM STATUS: REG ER SERVICE 1515 ORDERING PHYSICIAN: BRANDON SLATER DO PROCEDURE(s): CXRP - CHEST PORTABLE REASON: dizzy, weak, ORDER NUMBER(s): [id number], ACCESSION NUMBER(s): [id number] CHEST RADIOGRAPH Indication: dizzy, weak, Technique: Single frontal view of the chest was obtained COMPARISON: CXRP on DOS: 12/25/21, CHEST PORTABLE on DOS: 12/25/21, CXRP on DOS: 12/24/21 FINDINGS: Lines and Tubes: None Lungs: Bibasilar subsegmental atelectasis. Pleura: No effusion. No pneumothorax. Cardiomediastinal contours: Unremarkable Bones: Chronic appearing healed fractures of the left 6th and 7th ribs. IMPRESSION: Bibasilar subsegmental atelectasis. ATED BY: PABLO CORMIER MD DICTATED DATE/TIME: 09/11/241620 SIGNED BY: PABLO CORMIER MD SIGNED DATE/TIME: 09/11/241620 CC: [address] [address] Ph: [phone] DIAGNOSTIC IMAGING Diagnostic Imaging Report : [id number] Signed PATIENT: BRI GOMEZCT: [id number] UNIT: [id number] : 1940 LOC: TELE ROOM / BED: [address] [place] [address] AGE / SEX: 84 / M ADM STATUS: ADM IN SERVICE 48 ORDERING PHYSICIAN: JASWANT DUNHAM PROCEDURE(s): CARCL - CAROTID DUPLX W COLOR DOP REASON: dizziness ORDER NUMBER(s): [id number], ACCESSION NUMBER(s): [id number] Carotid Doppler Examination CLINICAL HISTORY: dizziness TECHNIQUE: Real-time high resolution grayscale imaging and color Doppler flow imaging with pulsed duplex sonography of the carotid and vertebral arteries is performed. Velocity criteria are extrapolated from angiographic diameter data as defined by the Society of Radiologists in Ultrasound Consensus Conference (Radiology 2003; 229: 340-346). Comparison: 08/22/2024. FINDINGS: Bilateral internal carotid arteries are tortuous. There is no significant friedmna scale stenosis. No significant plaque is noted in the distal common or internal carotid arteries bilaterally. Arterial waveforms are satisfactory. Antegrade flow is noted in the bilateral vertebral arteries. Peak systolic velocities (cm/s): Right ICA proximal:42.7 Right ICA mid:50.5 Right ICA distal:63.6 Right systolic ICA/CCA ratio:0.9 Left ICA proximal:62.0 Left ICA mid:52.9 Left ICA distal:46.5 Left systolic ICA/CCA ratio:1.0 IMPRESSION: No hemodynamically significant stenoses or occlusions identified. ATED BY: LEO KOHLER MD DICTATED DATE/TIME: 09/11/242310 SIGNED BY: LEO KOHLER MD SIGNED DATE/TIME: 09/11/242310 CC: [place] [address] Ph: [phone] DIAGNOSTIC IMAGING Diagnostic Imaging Report : [id number] Signed PATIENT: YANNA GOMEZOACCT: [id number] UNIT: [id number] : 1940 LOC: [facility] ROOM / BED: [address] [place] [address] AGE / SEX: 84 / M ADM STATUS: ADM IN SERVICE 48 ORDERING PHYSICIAN: JASWANT DUNHAM RESIDENT PROCEDURE(s): HWOCT - HEAD WITHOUT CONTRAST REASON: lower ext. weakness ORDER NUMBER(s): [id number], ACCESSION NUMBER(s): [id number] CT HEAD WITHOUT CONTRAST INDICATION: lower ext. weakness EXAM DATE: 09/11/2024 10:33 PM COMPARISON: HEAD WITHOUT CONTRAST on DOS: 12/19/21 RADIATION DOSE: CTDIvol: 57.18 mGy, DLP: 916.62 mGy*cm PROCEDURE: CT scans of the head were obtained from the vertex to the skull base. Sagittal and coronal reconstructions were provided. All CT scans at this medical facility are performed using dose modulation techniques as appropriate to a performed exam including the following: Automated exposure control was utilized; adjustment of the MA and/or KV according to patient size; and use of iterative reconstruction technique. FINDINGS: There is sulcal and ventricular prominence. The brainshows normal morphology and friedman-white matter differentiation, without intracranial hemorrhage, extra-axial fluid collection, mass effect or acute large vessel infarct. The ventricles are normal in size. The basal cisterns are patent. The skull and visible facial bones are intact. The paranasal sinuses, mastoid air cells and middle ear cavities are well-aerated. The soft tissues of the scalp are unremarkable. IMPRESSION: No acute intracranial abnormality. Mild chronic small vessel ischemic disease. ATED BY: ELVIRA FOLEY DO DICTATED DATE/TIME: 09/11/242309 SIGNED BY: ELVIRA FOLEY DO SIGNED DATE/TIME: 09/11/242309 CC: [place] [id number] Ph: [phone] DIAGNOSTIC IMAGING Diagnostic Imaging Report : [id number] Signed PATIENT: YANNA GOMEZOACCT: [id number] UNIT: [id number] : 1940 LOC: [facility] ROOM / BED: [address] [place] [address] AGE / SEX: 84 / M ADM STATUS: ADM IN SERVICE 48 ORDERING PHYSICIAN: JASWANT DUNHAM RESIDENT PROCEDURE(s): KIDUS - KIDNEY REASON: h/o prostate ca ?hydronephrosis ORDER NUMBER(s): [id number], ACCESSION NUMBER(s): [id number] INDICATION: h/o prostate ca. hydronephrosis TECHNIQUE: Multiple real-time sonographic images of the kidneys and bladder were obtained. COMPARISON: CT abdomen and pelvis obtained earlier 09/11/2024. FINDINGS: The right kidney measures 10.2 cm in length. The left kidney measures 9.9 cm in length.Normal cortical thickness and echogenicity bilaterally. No hydronephrosis. Bladder is underdistended with 42.13 mL prevoid volume. Prostate volume measures approximately 29 mL. IMPRESSION: No sonographic evidence of hydronephrosis. Prostate volume 29 mL. HS:Y ATED BY: LEO KOHLER MD DICTATED DATE/TIME: 09/12/24109 SIGNED BY: LEO KOHLER MD SIGNED DATE/TIME: 09/12/24109 CC: Condition at Discharge: Fair Final Diagnosis/Problems List # Presyncope likely due to dehydration, stroke was ruled out based on recent CT head # intrarenal CARTER likely hemodynamically mediated due to via VMN # Generalized weakness likely due to dehydration # Vitamin B12 level low, replenished # Vitamin D deficiency, replenished # rule out osteoporosis based on history of multiple rib fracture, low vitamin-D and high PTH # essential hypertension # H/o Prostate CA s/p radiation # H/o Asthma # obesity type 1 # prediabetes, hemoglobin A1c 6.4% # diverticulosis without diverticulitis based on CT scan #cholelithiasis without acute cholecystitis #mild pericardial effusion Discharge Disposition: Home SNF Discharge Will this Physician continue t: No Discharge Instruct/Medications Diet: Regular Activity: No Restrictions, As Tolerated Follow Up/Referral: follow up with pcp within 1 to 2 weeks Medications: resume home meds Discharge Statement: "Patient was advised to return to the ER or call 911 if any headaches, dizziness, shortness of breath, chest pain, abdominal pain, bleeding, fevers, or worsening of medical condition. Patient was counseled about treatment plan, medications, possible side effects, patientverbalized understanding. All questions were answered to the best of my ability. This discharge took greater then 30 minutes in planning, reviewing documentation, counseling the patient, and discussing with other team members." ASSESSMENT ASSESSMENT Assessment presyncome likelly due to dehydration carter likely due o dehydration Date of Service: Sep 13, 2024 Billing Provider: KIN DWYER MD Common Visit Codes: 94890-VRT/OBS DISCH DAY >30min GIANLUCA PIPER RESIDENT Sep 13, 2024 16:40 KIN DWYER MD Sep 13, 2024 20:23
== END 2024-09-13 12:00 | disposition home or self-care (01) | DRG 640 ==
LOC: ER 14:46 → TELE 21:39 → TELE-WESTW 09-12 02:38
PROVIDERS: ADMIT Internal Medicine Geriatric Medicine; ATTEND Internal Medicine Geriatric Medicine
DX: E86.0 Dehydration (principal); N17.0 Acute kidney failure with tubular necrosis; I31.39 Other pericardial effusion (noninflammatory); K57.30 Diverticulosis of large intestine without perforation or abscess without bleeding; K80.20 Calculus of gallbladder without cholecystitis without obstruction; J45.909 Unspecified asthma, uncomplicated; E55.9 Vitamin D deficiency, unspecified; E53.8 Deficiency of other specified B group vitamins; I11.9 Hypertensive heart disease without heart failure; M81.0 Age-related osteoporosis without current pathological fracture; E66.9 Obesity, unspecified; E11.9 Type 2 diabetes mellitus without complications; Z85.46 Personal history of malignant neoplasm of prostate; Z68.30 Body mass index [BMI] 30.0-30.9, adult; Z79.4 Long term (current) use of insulin; Z79.899 Other long term (current) drug therapy
CPT/HCPCS: 36415; 70450; 71045; 74176; 76775; 80048; 80053; 80307; 81001; 82306; 82570; 82607; 82962; 83036; 83605; 83735; 83880; 83970; 84154; 84156; 84300; 84443; 84484; 85025; 87426; 87804; 93005; 93886; G0378

== ENCOUNTER → 2025-01-22 | Outpatient (CLI) | payer MEDICARE, MEDICAID ==
[~2025-01-22] MED LIST changes: -MIRA50TA PO; -NIFE90TA75 PO
[2025-01-22 09:25] LABS: Basophils # (auto) 0 10 ^3/uL (0-0.2); Basophils % (auto) 0.7 % (0.0-2.0); Eosinophils # (auto) 0.1 10 ^3/uL (0-0.8); Eosinophils % (auto) 2.4 % (0.0-7.0); Hematocrit 36.3 % (41.0-53.0); Hemoglobin 12.3 g/dL (13.5-17.5); Lymphocytes # (auto) 1.4 10 ^3/uL (0.4-5.4); Lymphocytes % (auto) 30.6 % (10.0-50.0); Mean Corpuscular Hemoglobin 31.1 pg (28.0-32.0); Mean Corpuscular Hgb Conc. 33.8 g/dL (32.0-36.0); Monocytes # (auto) 0.4 10 ^3/uL (0-1.3); Monocytes % (auto) 8.9 % (0.0-12.0); Neutrophils # (auto) 2.7 10 ^3/uL (1.6-8.6); Neutrophils % (auto) 57.4 % (37.0-80.0); Nucleated Red Blood Cells % 0.1 %; Platelet Count (auto) 176 10^3/uL (140-450); Red Blood Cells 3.95 10^6/uL (4.5-5.90); Red Cell Distribution Width 13.5 % (11.8-14.3); White Blood Cell 4.7 10^3/uL (4.4-10.8)
[2025-01-22 09:39] LABS: Creatinine, Urine 83.29 mg/dL (30.0-125.0)
[2025-01-22 09:46] LABS: Alanine Aminotransferase 12 U/L (7-40); Albumin 4.4 g/dL (3.2-4.8); Alkaline Phosphatase 51 U/L (46-116); Anion Gap 10 (5-15); BUN/Creatinine Ratio 19.6 (10.0-20.0); Bilirubin, Total 0.7 mg/dL (0.2-1.0); Blood Urea Nitrogen 19 mg/dL (9-23); Calcium 9.9 mg/dL (8.7-10.4); Carbon Dioxide 28 mmol/L (20-31); Chloride 106 mmol/L (98-107); Cholesterol 106 mg/dL (< 200); HDL Cholesterol 44 mg/dL (40-59); LDL Cholesterol 52 mg/dL (< 100); Potassium 4.2 mmol/L (3.5-5.1); Sodium 144 mmol/L (136-145); Total Protein 6.7 g/dL (5.7-8.2); Triglycerides 60 mg/dL (< 150)
[2025-01-22 09:48] LABS: Aspartate Aminotransferase 10 U/L (13-40); Glucose 125 mg/dL (74-106)
== END | disposition home or self-care (01) ==
LOC: LAB 08:43
PROVIDERS: ATTEND Nurse Practitioner Family
DX: C61 Malignant neoplasm of prostate (principal); I10 Essential (primary) hypertension; E11.21 Type 2 diabetes mellitus with diabetic nephropathy; E55.9 Vitamin D deficiency, unspecified
CPT/HCPCS: 36415; 80053; 80061; 82043; 82306; 82570; 83036; 84153; 84443; 85025

== ENCOUNTER 2025-09-13 17:10 | Inpatient (IN) | payer MEDICARE, MEDICAID ==
[~2025-09-13] VITALS: Ht 172.7 cm; Wt 57.3 kg
--- NOTE | 2025-09-13 18:07 | ED.PDOC ---
History of Present Illness HPI Comments 85-year-old male who comes in with chief complaint of dizziness. The patient stated that has symptoms started on Wednesday. The patient then ate but then got somewhat lightheaded. He is complaining of feeling some heaviness to the back of his neck. He denies any nausea, vomiting or diarrhea. There has been no deficits as in weakness in any of the extremities. 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 He was brought to the emergency department's by his family member Chief Complaint: Dizziness Time Seen by MD: 17:12 Primary Care Provider: SAMMI Reviewed Notes: Nurses Notes, Medications, Allergies (No allergies to medications) Allergies: Coded Allergies: NO KNOWN ALLERGIES (Unverified , 04/27/19) Home Meds Reported Medications Budesonide-Formoterol Fumarate (Budesonide/Formoterol Fum 160-4.5 Mcg/Act) 1 Aer Aer, 2 PUFF IN BID for 30 Days, #10.2 INHALE 2 PUFFS BY MOUTH AND INTO THE LUNGS EVERY MORNING AND EVENING. 09/12/24 Lactulose (Lactulose) 10 Gm/15 Ml Tamra, 15 ML PO DAILY for 31 Days, #473 12/10/21 Albuterol Sulfate (Albuterol Sulfate Hfa) 108 Mcg/Act Aer, 2 PUFF INH Q4HR PRN for 66 Days, #17 12/10/21 Fluticasone Propionate (Nasal) (Flonase Allergy Relief) 50 Mcg/Act Spr, 1-2 SPRAY EACHNOSTRI for 60 Days, #16 02/23/19 Doxazosin Mesylate (Doxazosin Mesylate) 4 Mg Tab, 1 TAB PO DAILY for 90 Days, #90 11/22/18 Dutasteride (Dutasteride) 0.5 Mg Cap, 1 TAB PO PM for 90 Days, #90 11/22/18 Lisinopril (Lisinopril) 40 Mg Tab, 1 TAB PO DAILY for 90 Days, #90 11/22/18 Information Source: Patient Mode of Arrival: Ambulatory Severity: Moderate Timing: Days Duration: Since onset Prehospital treatment: None Associated signs and symptoms Dizziness but no nausea or vomiting Past Medical History PAST MEDICAL HISTORY: Asthma, Cancer (Previous history of prostate cancer), CVA, HTN, PUD Surgical History: Appendectomy, Hernia Repair Family History Family History: No family hx of DM, Family hx of HTN Social History Smoker: Non-Smoker Alcohol: Denies ETOH Use Drugs: Denies Drug Use Lives In: Home Constitutional: denies: chills, diaphoresis, fatigue, fever, malaise, sweats, weakness, others EENTM: denies: blurred vision, double vision, ear bleeding, ear discharge, ear drainage, ear pain, ear ringing, eye pain, eye redness, hearing loss, mouth pain, mouth swelling, nasal discharge, nose bleeding, nose congestion, nose pain, photophobia, tearing, throat pain, throat swelling, voice changes, others Respiratory: denies: cough, hemoptysis, orthopnea, SOB at rest, shortness of breath, SOB with excertion, stridor, wheezing, others Cardiovascular: denies: chest pain, dizzy spells, diaphoresis, Dyspnea on exertion, edema, irregular heart beat, left arm pain, lightheadedness, palpitations, PND, syncope, others Gastrointestinal: denies: abdomen distended, abdominal pain, blood streaked bowels, constipated, diarrhea, dysphagia, difficulty swallowing, hematemesis, melena, nausea, poor appetite, poor fluid intake, rectal bleeding, rectal pain, vomiting, others Genitourinary: denies: burning, dysuria, flank pain, frequency, hematuria, incontinence, penile discharge, penile sore, pain, testicle pain, testicle swelling, urgency, others Neurological: reports: others (Lightheadedness); denies: dizziness, fainting, headache, left sided numbness, left sided weakness, numbness, paresthesia, pre- existing deficit, right sided numbness, right sided weakness, seizure, speech problems, tingling, tremors, weakness Musculoskeletal: denies: back pain, gout, joint pain, joint swelling, muscle pain, muscle stiffness, neck pain, others Integumetry: denies: bruises, change in color, change in hair/nails, dryness, laceration, lesions, lumps, rash, wounds, others Allergic/Immunocompromised: denies: Difficulty Healing, Frequent Infections, Hives, Itching, others Hematologic/Lymphatic: denies: anemia, blood clots, easy bleeding, easy bruising, swollen glands, others Endocrine: denies: excessive hunger, excessive sweating, excessive thirst, excessive urination, flushing, intolerance to cold, intolerance to heat, unexplained weight gain, unexplained weight loss, others Psychiatric: denies: anxiety, bipolar disorder, depression, hopeless, panic disorder, schizophrenia, sleepless, suicidal, others Physical Exam General Appearance: Moderate Distress HEENT: Normal ENT Inspection, Pharynx Normal, TMs Normal Neck: Full Range of Motion, Non-Tender, Normal, Normal Inspection Respiratory: Chest Non-Tender, Lungs Clear, No Accessory Muscle Use, No Respiratory Distress, Normal Breath Sounds Cardiovascular: No Edema, No JVD, No Murmur, No Gallop, Normal Peripheral Pulses, Regular Rate/Rhythm Breast Exam: Deferred Gastrointestinal: No Organomegaly, Non Tender, No Pulsatile Mass, Normal Bowel Sounds, Soft Genitalia: Deferred Pelvic: Deferred Rectal: Deferred Extremities: No calf tenderness, Normal capillary refill, Normal inspection, Normal range of motion, Non-tender, No pedal edema Musculoskeletal : Apperance: Normal 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 Was a procedure done?: No Differential Dx Considerations may include: Generalized weakness, autonomic dysfunction, dehydration X-Ray, Labs, Meds, VS Vital Signs Date Time Temp Pulse Resp B/P (MAP) Pulse Ox O2 Delivery O2 Flow Rate FiO2 09/13/25 17:15 98.1 78 16 126/87 99 98.1 Lab Test 09/13/25 18:05 Range/Units White Blood Count 5.1 4.4-10.8 10^3/uL Red Blood Count 3.78 L 4.5-5.90 10^6/uL Hemoglobin 11.7 L 13.5-17.5 g/dL Hematocrit 35.2 L 41.0-53.0 % Mean Corpuscular Volume 93.0 80.0-100.0 fL Mean Corpuscular Hemoglobin 30.9 28.0-32.0 pg Mean Corpuscular Hemoglobin Concent 33.2 32.0-36.0 g/dL Red Cell Distribution Width 13.9 11.8-14.3 % Platelet Count 174 140-450 10^3/uL Mean Platelet Volume 8.8 6.9-10.8 fL Neutrophils (%) (Auto) 58.5 37.0-80.0 % Lymphocytes (%) (Auto) 25.8 10.0-50.0 % Monocytes (%) (Auto) 9.8 0.0-12.0 % Eosinophils (%) (Auto) 5.1 0.0-7.0 % Basophils (%) (Auto) 0.8 0.0-2.0 % Neutrophils # (Auto) 3.0 1.6-8.6 10 ^3/uL Lymphocytes # (Auto) 1.3 0.4-5.4 10 ^3/uL Monocytes # (Auto) 0.5 0-1.3 10 ^3/uL Eosinophils # (Auto) 0.3 0-0.8 10 ^3/uL Basophils # (Auto) 0 0-0.2 10 ^3/uL Nucleated Red Blood Cells 0.0 % Sodium Level 141 136-145 mmol/L Potassium Level 4.1 3.5-5.1 mmol/L Chloride Level 104 98-107 mmol/L Carbon Dioxide Level 28 20-31 mmol/L Anion Gap 9 5-15 Blood Urea Nitrogen 19 9-23 mg/dL Creatinine 1.06 0.700-1.30 mg/dL Glomerular Filtration Rate Calc 68 >90 mL/min BUN/Creatinine Ratio 17.9 10.0-20.0 Serum Glucose 105 74-106 mg/dL Calcium Level 9.2 8.7-10.4 mg/dL CAT scan of the head is negative The CBC and chemistry panel are within normal limits At this time, an IV Hep-Lock is being established The patient is being admitted to the hospitalist at this time The patient understands and agrees with the management. Images Reviewed?: Images reviewed and evaluated by me Time of 1ST Reevaluation: 19:28 Reevaluation 1ST: Unchanged Patient Education/Counseling: Diagnosis, Treatment, Prognosis Family Education/Counseling: Diagnosis, Treatment, Prognosis SEPSIS Sepsis Screen Date sepsis recognized/suspect: Sep 13, 2025 Time Sepsis recognized/suspect: 1716 Recent Procedure: No On Antibiotic Therapy: No Respiratory Rate >20: No Heart Rate >90: No Temp<36 C (96.8 F) or >38.3 C: No SBP <90 or MAP <65 mmHG: No New Acute Mental Status Change: No Is the patient on CPAP, BIPAP,: No Physician Orders Urinalysis (09/13/25 17:58) Electrocardigram (09/13/25 17:58) Head Without Contrast (09/13/25 17:58) Covid19 Antigen Norah (09/13/25 ) Nifedipine Er (Procardia Xl (Time-Releas (09/14/25 10:00) Albuterol Medneb (Ventolin Medneb) (09/13/25 19:15) Regular Diet (09/14/25 Breakfast) Brain Head Wo Contrast (09/13/25 19:15) Admit (09/13/25 19:15) Ondansetron Hcl (Zofran) (09/13/25 19:15) Condition: Stable (09/13/25 19:15) Acetaminophen Tablet (Tylenol Tablet) (09/13/25 19:15) Bedrest With Bathroom Privileg (09/13/25 19:15) Aspirin Tablet (09/14/25 10:00) Vital Signs Date Time Temp Pulse Resp B/P (MAP) Pulse Ox O2 Delivery O2 Flow Rate FiO2 09/13/25 17:15 98.1 78 16 126/87 99 98.1 Laboratory Tests Test 09/13/25 18:05 White Blood Count 5.1 10^3/uL (4.4-10.8) Departure 1 Departure Time of Disposition: 19:29 Impression: Primary Impression: Autonomic dysfunction Additional Impression: Generalized weakness Disposition: 09 ADMITTED INPATIENT Admit to: [facility] Condition: Fair Critical Care Note Critical Care Time?: No Stability Stability form required: Yes Unstable for transfer: Telemetry monitoring (Telemetry monitoring required), ED Physician Assesment (Clinical assesment) Heart Score Heart Score: Heart Score Response (Comments) Value History N/A 0 EKG N/A 0 Age N/A 0 Risk Factors N/A 0 Troponin N/A 0 Total 0 CARLOS MESA MD Sep 13, 2025 18:07
[2025-09-13 18:25] LABS: Hematocrit 35.2 % (41.0-53.0); Hemoglobin 11.7 g/dL (13.5-17.5); Mean Corpuscular Hemoglobin 30.9 pg (28.0-32.0); Mean Corpuscular Volume 93.0 fL (80.0-100.0); Nucleated Red Blood Cells % 0.0 %
[2025-09-13 18:28] LABS: Chloride 104 mmol/L (98-107); Potassium 4.1 mmol/L (3.5-5.1); Sodium 141 mmol/L (136-145)
[2025-09-13 18:29] LABS: Anion Gap 9 (5-15); Calcium 9.2 mg/dL (8.7-10.4); Carbon Dioxide 28 mmol/L (20-31)
[2025-09-13 18:34] LABS: BUN/Creatinine Ratio 17.9 (10.0-20.0); Blood Urea Nitrogen 19 mg/dL (9-23); Glucose 105 mg/dL (74-106)
--- NOTE | 2025-09-13 18:39 | DVH ---
EXAM: CT HEAD WITHOUT CONTRAST INDICATION: dizziness TECHNIQUE:: CT images of the head were obtained without administration of IV contrast. CT scans at this facility use dose modulation, iterative reconstruction, and/or weight based dosing when appropriate to reduce radiation dose to as low as reasonably achievable. COMPARISON: CT HEAD WITHOUT CONTRAST on DOS: 09/11/24 FINDINGS: PARENCHYMA: No acute hemorrhage. There is no mass effect, midline shift, or herniation. There is preservation of the friedman white differentiation. Mild scattered hypoattenuation along the periventricular, centrum semiovale, and deep white matter tracts, which are nonspecific however statistically most likely represent chronic microvascular ischemic change. VENTRICLES: No hydrocephalus. EXTRA-AXIAL SPACES: No extra-axial fluid collections. OTHER: The bony structures are intact. Mucous retention cysts in bilateral maxillary sinuses IMPRESSION: 1. No CT evidence of an acute intracranial abnormality.
[2025-09-13] MEDS ORDERED: ONDANSETRON HCL 4 MG/2 ML VIAL IV PRN (19:15)
--- NOTE | 2025-09-13 20:01 | DVHHP2 ---
History of Present Illness Reason for Visit: Dizziness History of Present Illness 85-year-old male presents for evaluation of dizziness. Patient reports a four day history of intermittent dizziness with associated occipital headache/heaviness. Denies unilateral weakness, slurred speech or blurred vision. No chest pain or shortness for breath. Past Medical History Asthma, cancer, hypertension, CVA Past Surgical History Hernia repair, appendectomy Family History Noncontributory Smoke: No ALCOHOL: none Drugs: None Lives: with Family Review of Systems Review of Systems Review of systems are currently negative otherwise addressed in HPI. Allergies: Coded Allergies: NO KNOWN ALLERGIES (Unverified , 04/27/19) Medications Current Medications Medications Dose Ordered Sig/Serg Route Start Time Stop Time Status Last Admin Dose Admin Nifedipine 90 mg DAILY PO 09/14/25 10:00 UNV Albuterol 2.5 mg Q6HPRN PRN NEB 09/13/25 19:15 UNV Ondansetron HCl 4 mg Q4HP PRN IV 09/13/25 19:15 UNV Acetaminophen 650 mg Q6HP PRN PO 09/13/25 19:15 UNV Aspirin 81 mg DAILY PO 09/14/25 10:00 UNV Exam Vital Signs Vital Signs Date Time Temp Pulse Resp B/P (MAP) Pulse Ox O2 Delivery O2 Flow Rate FiO2 09/13/25 17:15 98.1 78 16 126/87 99 98.1 Exam Gen: 85-year-old male in no apparent distress Skin: Warm, dry, normal color and texture, no rash. HEENT: Normocephalic atraumatic, mucous membranes moist and pink. Neck: Cervical and supraclavicular nodes normal without enlargement, trachea is midline, thyroid gland is normal without masses. Pulmonary: Clear to auscultation and percussion bilaterally. Cardiac: Regular rate and rhythm. No murmur Abdomen: Soft, nontender, nondistended, bowel sounds present all 4 quadrants, no guarding, no rigidity, no organomegaly. Extremities: No cyanosis, clubbing, no edema Neuro: Cranial nerves II through XII grossly intact, normal affect and speech, no focal motor deficits. Labs/Xrays ORDERING PHYSICIAN: CARLOS MESA MD PROCEDURE(s): HWOCT - HEAD WITHOUT CONTRAST REASON: dizziness ORDER NUMBER(s): [id number], ACCESSION NUMBER(s): [id number] EXAM: CT HEAD WITHOUT CONTRAST INDICATION: dizziness TECHNIQUE:: CT images of the head were obtained without administration of IV contrast. CT scans at this facility use dose modulation, iterative reconstruction, and/or weight based dosing when appropriate to reduce radiation dose to as low as reasonably achievable. COMPARISON: CT HEAD WITHOUT CONTRAST on DOS: 09/11/24 FINDINGS: PARENCHYMA: No acute hemorrhage. There is no mass effect, midline shift, or herniation. There is preservation of the friedman white differentiation. Mild scattered hypoattenuation along the periventricular, centrum semiovale, and deep white matter tracts, which are nonspecific however statistically most likely represent chronic microvascular ischemic change. VENTRICLES: No hydrocephalus. EXTRA-AXIAL SPACES: No extra-axial fluid collections. OTHER: The bony structures are intact. Mucous retention cysts in bilateral maxillary sinuses IMPRESSION: 1. No CT evidence of an acute intracranial abnormality. Labs Test 09/13/25 18:05 Range/Units White Blood Count 5.1 4.4-10.8 10^3/uL Red Blood Count 3.78 L 4.5-5.90 10^6/uL Hemoglobin 11.7 L 13.5-17.5 g/dL Hematocrit 35.2 L 41.0-53.0 % Mean Corpuscular Volume 93.0 80.0-100.0 fL Mean Corpuscular Hemoglobin 30.9 28.0-32.0 pg Mean Corpuscular Hemoglobin Concent 33.2 32.0-36.0 g/dL Red Cell Distribution Width 13.9 11.8-14.3 % Platelet Count 174 140-450 10^3/uL Mean Platelet Volume 8.8 6.9-10.8 fL Neutrophils (%) (Auto) 58.5 37.0-80.0 % Lymphocytes (%) (Auto) 25.8 10.0-50.0 % Monocytes (%) (Auto) 9.8 0.0-12.0 % Eosinophils (%) (Auto) 5.1 0.0-7.0 % Basophils (%) (Auto) 0.8 0.0-2.0 % Neutrophils # (Auto) 3.0 1.6-8.6 10 ^3/uL Lymphocytes # (Auto) 1.3 0.4-5.4 10 ^3/uL Monocytes # (Auto) 0.5 0-1.3 10 ^3/uL Eosinophils # (Auto) 0.3 0-0.8 10 ^3/uL Basophils # (Auto) 0 0-0.2 10 ^3/uL Nucleated Red Blood Cells 0.0 % Sodium Level 141 136-145 mmol/L Potassium Level 4.1 3.5-5.1 mmol/L Chloride Level 104 98-107 mmol/L Carbon Dioxide Level 28 20-31 mmol/L Anion Gap 9 5-15 Blood Urea Nitrogen 19 9-23 mg/dL Creatinine 1.06 0.700-1.30 mg/dL Glomerular Filtration Rate Calc 68 >90 mL/min BUN/Creatinine Ratio 17.9 10.0-20.0 Serum Glucose 105 74-106 mg/dL Calcium Level 9.2 8.7-10.4 mg/dL SEPSIS Sepsis Screen Date sepsis recognized/suspect: Sep 13, 2025 Time Sepsis recognized/suspect: 1716 Recent Procedure: No On Antibiotic Therapy: No Respiratory Rate >20: No Heart Rate >90: No Temp<36 C (96.8 F) or >38.3 C: No SBP <90 or MAP <65 mmHG: No New Acute Mental Status Change: No Is the patient on CPAP, BIPAP,: No Physician Orders Urinalysis (09/13/25 17:58) Electrocardigram (09/13/25 17:58) Head Without Contrast (09/13/25 17:58) Covid19 Antigen Norah (09/13/25 ) Nifedipine Er (Procardia Xl (Time-Releas (09/14/25 10:00) Albuterol Medneb (Ventolin Medneb) (09/13/25 19:15) Regular Diet (09/14/25 Breakfast) Brain Head Wo Contrast (09/13/25 19:15) Admit (09/13/25 19:15) Ondansetron Hcl (Zofran) (09/13/25 19:15) Condition: Stable (09/13/25 19:15) Acetaminophen Tablet (Tylenol Tablet) (09/13/25 19:15) Bedrest With Bathroom Privileg (09/13/25 19:15) Aspirin Tablet (09/14/25 10:00) Vital Signs Date Time Temp Pulse Resp B/P (MAP) Pulse Ox O2 Delivery O2 Flow Rate FiO2 09/13/25 17:15 98.1 78 16 126/87 99 98.1 Laboratory Tests Test 09/13/25 18:05 White Blood Count 5.1 10^3/uL (4.4-10.8) Assessment/Plan Assessment/Plan Assessment Dizziness Hypertension Plan Admit the patient to Med surge to the hospitalist MRI of the brain pending Meclizine trial Resume home medications Continue treatment per orders. Plan discussed with: Patient My Orders Orders - ARIADNE THOMPSON Procedure Category Date Status Time Nifedipine Er PHA 09/14/25 Logged (Procardia Xl 10:00 Albuterol Medneb PHA 09/13/25 Logged (Ventolin Medneb) 19:15 Regular Diet DIET 09/14/25 Transmitted Breakfast Brain Head Wo Contrast MRI 09/13/25 Logged 19:15 Admit ADMIT 09/13/25 Transmitted 19:15 Ondansetron Hcl PHA 09/13/25 Logged (Zofran) 19:15 Condition: Stable TATE 09/13/25 In Process 19:15 Acetaminophen Tablet PHA 09/13/25 Logged (Tylenol Tablet) 19:15 Bedrest With Bathroom TATE 09/13/25 In Process Privileg 19:15 Aspirin Tablet PHA 09/14/25 Logged 10:00 Date of Service: Sep 13, 2025 Billing Provider: ARIADNE THOMPSON Common Visit Codes: [id number] INP/OBS CARE (MOD) ARIADNE THOMPSON Sep 13, 2025 20:01
[2025-09-13] MEDS ORDERED: MECLIZINE HCL 25 MG TAB PO PRN (20:15)
[2025-09-13 20:29] VITALS: BP 148/72; PULSE 66; RESP 15; TEMP 98; O2SAT 94
[2025-09-13] MEDS ORDERED: NIFE90TA75 PO (20:57)
[2025-09-13] MEDS ORDERED: DOXA4TAB83 PO (20:57)
[2025-09-13] MEDS ORDERED: ALBU2TAB11 PO (20:57)
[2025-09-13 20:59] LABS: COVID19 ANTIGEN SOFIA FIA NEGATIVE (NEGATIVE)
[2025-09-13 21:00] LABS: Urine Protein, UAD Negative (Negative)
[2025-09-14] VITALS (14 sets, daily range): BP systolic 116–148; BP diastolic 72–90; PULSE 56–91; RESP 15–20; TEMP 97.3–98.6; O2SAT 0–100
[2025-09-14] MEDS: ALBUTEROL SULF 2.5 MG/0.5ML(0.5%) NEB SOLN NEB PRN (00:04)
--- NOTE | 2025-09-14 10:12 | DVH ---
MRI BRAIN WITHOUT CONTRAST HISTORY: Dizziness COMPARISON: CT HEAD WITHOUT CONTRAST on DOS: 09/13/25, CT HEAD WITHOUT CONTRAST on DOS: 09/11/24 TECHNIQUE: Multi-sequence, multiplanar magnetic resonance images of the brain are reviewed. FINDINGS: No acute hemorrhage or infarct is seen. Scattered T2/FLAIR hyperintense foci in the periventricular and subcortical white matter, suggestive of chronic microvascular disease. The ventricles and sulci are mildly enlarged, compatible with generalized parenchymal volume loss. There is no evidence of mass or mass effect. There are no abnormal extra-axial fluid collections. The major intracranial blood vessels retain normal flow voids consistent with their patency. Scattered mucosal thickening of the paranasal sinuses. Mastoid air cells are clear.. IMPRESSION: No acute infarct. Chronic microvascular ischemic changes.
--- NOTE | 2025-09-14 11:15 | DVHPN2 ---
Changes from previous H/P or p: No Changes, Changes Objective Vitals Vital Signs Date Time Temp Pulse Resp B/P (MAP) Pulse Ox O2 Delivery O2 Flow Rate FiO2 09/14/25 10:08 139/72 09/14/25 09:00 98.6 64 20 92 98.6 09/14/25 00:04 Room Air* 0 21 Intake/Output Intake and Output 09/14/25 06:59 Intake Total 220 ml Output Total 800 ml Balance -580 ml Intake Oral 220 ml Output Urine Total 800 ml Medications Current Medications Medications Dose Ordered Sig/Serg Route Start Time Stop Time Status Last Admin Dose Admin Nifedipine 90 mg DAILY PO 09/14/25 10:00 09/14/25 10:08 90 MG Albuterol 2.5 mg Q6HPRN PRN NEB 09/13/25 19:15 09/14/25 00:04 2.5 MG Ondansetron HCl 4 mg Q4HP PRN IV 09/13/25 19:15 Acetaminophen 650 mg Q6HP PRN PO 09/13/25 19:15 Meclizine HCl 25 mg Q6HPRN PRN PO 09/13/25 20:15 Aspirin 81 mg DAILY PO 09/14/25 10:09 09/14/25 10:21 81 MG Laboratory Results Laboratory Tests 09/13/25 18:05 Chemistry Test 09/13/25 18:05 Calcium Level 9.2 mg/dL (8.7-10.4) Urinalysis Test 09/13/25 20:05 Urine Color Light-yellow (Yellow) Urine Clarity Clear (Clear) Urine pH 7.0 (5.0-9.0) Urine Specific Badger 1.014 (1.001-1.035) Urine Protein Negative (Negative) Urine Ketones Negative (Negative) Urine Blood Negative /uL (Negative) Urine Nitrite Negative (Negative) Urine Bilirubin Negative (Negative) Urine Urobilinogen Normal mg/dL (Negative) Urine Leukocyte Esterase Negative /uL (Negative) Urine RBC 1 /hpf (0 - 3) Urine Microscopic WBC < 1 /HPF (0-3) Urine Squamous Epithelial Cells Few /hpf (<5) Urine Bacteria None seen /hpf (None Seen) Urine Glucose Normal mg/dL (Normal) Labs and/or images reviewed: Labs reviewed by me, Image(s) reviewed by me Assessment/Plan Assessment/Plan Dizziness and headache: CT head negative MRI brain negative all labs normal: Meclizine, Neurology consult for Dr. House Hypotension History of left eye stroke two years ago Asthma History of prostate cancer status post radiation therapy and chemotherapy four years Carotid ultrasound pending Echocardiogram pending Daughter Florencia [phone] at bedside and is the production assembly supervisor Patient lives with his Time spent 50 minutes Patient is full code Advanced care planning time 20 minutes Plan discussed with: Patient Date of Service: Sep 14, 2025 Billing Provider: PB GARNER MD Common Visit Codes: [id number] INP/OBS CARE(HIGH) Secondary Visit Codes: [id number] CARE PLAN 30 MINUTES PB GARNRE MD Sep 14, 2025 11:15
--- NOTE | 2025-09-14 12:49 | DVHSR ---
APPROVED REPORT EXAM: Two-dimensional and M-mode echocardiogram with Doppler and color Doppler. Blood Pressure: 139/72 mmHg INDICATION Dizziness and Vertigo RISK FACTORS Height: 68, Weight: 180 DIMENSIONS LVDd 5.1 (3.8-5.7cm) LA (2D) 4.2 (1.9-4.0cm) Aortic Root 3.9 (2.0-3.7cm) LVDs 3.7 (2.5-4.0cm) LA (MM) (1.9-4.0cm) Aortic Cusp Exc 2.2 (1.5-2.0cm) EF (%) 54.0 (55-70%) Rt. Atrium (1.9-4.0cm) Asc. Aorta cm Mitral Valve Mitral Mitral Stenosis E wave 0.94m/s MV Mean GR. mmHg A wave 1.05m/s MV Peak GR. mmHg E/A ratio 0.9 2D MVA cm2 DECEL Time 273ms PRESS 1/2 Time ms Aortic Valve Aortic Valve Aortic Stenosis V1 0.93m/s AO Mean GR. 3mmHg V2 1.24m/s AO Peak GR. 6mmHg LVOT Diameter 2.1 (1.8-2.4cm) Doppler PASTOR 2.60cm2 AI P 1/2 Time 650.91ms Conclusion 1-Normal right and left ventricule systolic function with estimated ejection fraction of 55%. Normal LV wall motion. normal LV diastolic function 2-Mild left atrial dilatation 3-Mild aortic, mitral and tricuspid regurgitation 4-Mild aortic root dilatation (diameter 3.9 cm)
--- NOTE | 2025-09-14 13:32 | DVH ---
CLINICAL HISTORY: Dizziness TECHNIQUE: Gtz-scale, Color and Duplex Doppler imaging of the bilateral carotid systems was performed. COMPARISON: US CAROTID DUPLX W COLOR DOP on DOS: 09/11/24, VAS CAROTIDS COMPLETE on DOS: 08/22/24, US CAROTID DUPLX W COLOR DOP on DOS: 05/08/24 FINDINGS: Right Carotid system: There is tortuosity of the right carotid system. Left Carotid system: There is tortuosity of the left carotid system. The following flow velocities were obtained (cm/sec). Right Carotid System: ICA PSV: 62 cm/sec ICA PDV: 16 cm/sec ICA/CCA Ratio: 1 Left Carotid System: ICA PSV: 62 cm/sec ICA PDV: 19 cm/sec ICA/CCA Ratio: 0.8 The right and left common carotid and external carotid arteries are patent. There is antegrade flow in both vertebral arteries and external carotid arteries. IMPRESSION: No hemodynamically significant stenosis of the carotid arteries.
[2025-09-15] VITALS (10 sets, daily range): BP systolic 116–143; BP diastolic 75–97; PULSE 20–68; RESP 16–20; TEMP 97.1–98.6; O2SAT 91–99
--- NOTE | 2025-09-15 08:37 | DVHPN2 ---
Reviewed: Care Plan, H&P, Labs, Medications, Previous Orders, Radiology Changes from previous H/P or p: No Changes Objective Vitals Vital Signs Date Time Temp Pulse Resp B/P (MAP) Pulse Ox O2 Delivery O2 Flow Rate FiO2 09/15/25 05:00 97.1 56 18 130/78 (95) 93 97.1 09/14/25 20:09 Room Air* 0 21 Intake/Output Intake and Output 09/15/25 07:00 Intake Total 2420 ml Output Total 1700 ml Balance 720 ml Intake Oral 2420 ml Output Urine Total 1700 ml Medications Current Medications Medications Dose Ordered Sig/Serg Route Start Time Stop Time Status Last Admin Dose Admin Nifedipine 90 mg DAILY PO 09/14/25 10:00 09/14/25 10:08 90 MG Albuterol 2.5 mg Q6HPRN PRN NEB 09/13/25 19:15 09/14/25 20:09 2.5 MG Ondansetron HCl 4 mg Q4HP PRN IV 09/13/25 19:15 Acetaminophen 650 mg Q6HP PRN PO 09/13/25 19:15 Meclizine HCl 25 mg Q6HPRN PRN PO 09/13/25 20:15 Aspirin 81 mg DAILY PO 09/14/25 10:09 09/14/25 10:21 81 MG Laboratory Results Laboratory Tests 09/13/25 18:05 Urinalysis Test 09/13/25 20:05 Urine Color Light-yellow (Yellow) Urine Clarity Clear (Clear) Urine pH 7.0 (5.0-9.0) Urine Specific [place] 1.014 (1.001-1.035) Urine Protein Negative (Negative) Urine Ketones Negative (Negative) Urine Blood Negative /uL (Negative) Urine Nitrite Negative (Negative) Urine Bilirubin Negative (Negative) Urine Urobilinogen Normal mg/dL (Negative) Urine Leukocyte Esterase Negative /uL (Negative) Urine RBC 1 /hpf (0 - 3) Urine Microscopic WBC < 1 /HPF (0-3) Urine Squamous Epithelial Cells Few /hpf (<5) Urine Bacteria None seen /hpf (None Seen) Urine Glucose Normal mg/dL (Normal) Labs and/or images reviewed: Labs reviewed by me, Image(s) reviewed by me Assessment/Plan Assessment/Plan Dizziness and headache: CT head negative MRI brain negative carotid ultrasound negative all labs normal: Meclizine, Neurology consult for Dr. House Hypertension History of left eye stroke two years ago Asthma History of prostate cancer status post radiation therapy and chemotherapy four years ago Echocardiogram 50 % ejection fraction, no valvular dysfunction Daughter Florencia [phone] at bedside Patient lives with his Time spent 50 minutes Patient is full code Advanced care planning time 20 minutes Physical therapy ordered Examined through the help of lead pl sql developer Plan discussed with: Patient My Orders Orders - PB GARNER MD Procedure Category Date Status Time Carotid Duplx W Color US 09/14/25 Resulted DOP 11:04 Echo 2d Mode Cardiac US 09/14/25 Resulted DOP 11:05 Date of Service: Sep 15, 2025 Billing Provider: PB GARNER MD Common Visit Codes: [id number] INP/OBS CARE(HIGH) PB GARNER MD Sep 15, 2025 08:37
[2025-09-15] MEDS: ACETAMINOPHEN 325 MG TAB PO PRN (12:03)
[2025-09-15] MEDS: MAALOX PLUS or MAALOX 30 ML PO ONE (17:10)
[2025-09-16 01:00] VITALS: BP 132/77; PULSE 62; RESP 16; TEMP 97.6; O2SAT 93
[2025-09-16 08:08] VITALS: O2SAT 96
[2025-09-16 08:49] VITALS: BP 129/73; PULSE 66; RESP 20; TEMP 98; O2SAT 96
--- NOTE | 2025-09-16 09:44 | DVHPN2 ---
Reviewed: Care Plan, H&P, Labs, Medications, Previous Orders, Radiology Changes from previous H/P or p: No Changes Objective Vitals Vital Signs Date Time Temp Pulse Resp B/P (MAP) Pulse Ox O2 Delivery O2 Flow Rate FiO2 09/16/25 09:18 129/73 09/16/25 08:49 98.0 66 20 96 98.0 09/16/25 08:10 Room Air* 0 21 Intake/Output Intake and Output 09/16/25 07:00 Intake Total 1440 ml Output Total 1900 ml Balance -460 ml Intake Oral 1440 ml Output Urine Total 1900 ml Medications Current Medications Medications Dose Ordered Sig/Serg Route Start Time Stop Time Status Last Admin Dose Admin Nifedipine 90 mg DAILY PO 09/14/25 10:00 09/16/25 09:18 90 MG Albuterol 2.5 mg Q6HPRN PRN NEB 09/13/25 19:15 09/15/25 20:01 2.5 MG Ondansetron HCl 4 mg Q4HP PRN IV 09/13/25 19:15 Acetaminophen 650 mg Q6HP PRN PO 09/13/25 19:15 09/15/25 12:03 650 MG Meclizine HCl 25 mg Q6HPRN PRN PO 09/13/25 20:15 Aspirin 81 mg DAILY PO 09/14/25 10:09 09/16/25 09:17 81 MG Laboratory Results Laboratory Tests 09/13/25 18:05 Urinalysis Test 09/13/25 20:05 Urine Color Light-yellow (Yellow) Urine Clarity Clear (Clear) Urine pH 7.0 (5.0-9.0) Urine Specific [place] 1.014 (1.001-1.035) Urine Protein Negative (Negative) Urine Ketones Negative (Negative) Urine Blood Negative /uL (Negative) Urine Nitrite Negative (Negative) Urine Bilirubin Negative (Negative) Urine Urobilinogen Normal mg/dL (Negative) Urine Leukocyte Esterase Negative /uL (Negative) Urine RBC 1 /hpf (0 - 3) Urine Microscopic WBC < 1 /HPF (0-3) Urine Squamous Epithelial Cells Few /hpf (<5) Urine Bacteria None seen /hpf (None Seen) Urine Glucose Normal mg/dL (Normal) Labs and/or images reviewed: Labs reviewed by me, Image(s) reviewed by me Assessment/Plan Assessment/Plan Dizziness and headache: CT head negative MRI brain negative carotid ultrasound negative all labs normal: Meclizine, Neurology consult for Dr. House pending Dr. House on vacation Hypertension History of left eye stroke two years ago Asthma History of prostate cancer status post radiation therapy and chemotherapy four years ago Echocardiogram 50 % ejection fraction, no valvular dysfunction Daughter Florencia [phone] at bedside Patient lives with his Time spent 50 minutes Patient is full code Advanced care planning time 20 minutes Physical therapy ordered Examined through the help of study abroad advisor Plan discussed with: Patient Date of Service: Sep 16, 2025 Billing Provider: PB GARNER MD Common Visit Codes: [id number] INP/OBS CARE(HIGH) PB GARNER MD Sep 16, 2025 09:44
[2025-09-16] MEDS ORDERED: MECL12.586 PO (09:46)
[2025-09-16 09:47] VITALS: O2SAT 97
--- NOTE | 2025-09-16 09:50 | DVHDS2 ---
Discharge Summary Date of Admission Sep 13, 2025 at 19:15 Date of Discharge: Sep 16, 2025 Admitting Diagnosis Dizziness Wounds: None Labs/Diagnostic Data: Laboratory Results Test 09/13/25 20:05 09/13/25 18:05 Urine Color Light-yellow (Yellow) Urine Clarity Clear (Clear) Urine pH 7.0 (5.0-9.0) Urine Specific [place] 1.014 (1.001-1.035) Urine Protein Negative (Negative) Urine Ketones Negative (Negative) Urine Blood Negative /uL (Negative) Urine Nitrite Negative (Negative) Urine Bilirubin Negative (Negative) Urine Urobilinogen Normal mg/dL (Negative) Urine Leukocyte Esterase Negative /uL (Negative) Urine RBC 1 /hpf (0 - 3) Urine Microscopic WBC < 1 /HPF (0-3) Urine Squamous Epithelial Cells Few /hpf (<5) Urine Bacteria None seen /hpf (None Seen) Urine Glucose Normal mg/dL (Normal) SARS-CoV-2 Antigen (Rapid) Negative (NEGATIVE) White Blood Count 5.1 10^3/uL (4.4-10.8) Red Blood Count 3.78 10^6/uL (4.5-5.90) Hemoglobin 11.7 g/dL (13.5-17.5) Hematocrit 35.2 % (41.0-53.0) Mean Corpuscular Volume 93.0 fL (80.0-100.0) Mean Corpuscular Hemoglobin 30.9 pg (28.0-32.0) Mean Corpuscular Hemoglobin Concent 33.2 g/dL (32.0-36.0) Red Cell Distribution Width 13.9 % (11.8-14.3) Platelet Count 174 10^3/uL (140-450) Mean Platelet Volume 8.8 fL (6.9-10.8) Neutrophils (%) (Auto) 58.5 % (37.0-80.0) Lymphocytes (%) (Auto) 25.8 % (10.0-50.0) Monocytes (%) (Auto) 9.8 % (0.0-12.0) Eosinophils (%) (Auto) 5.1 % (0.0-7.0) Basophils (%) (Auto) 0.8 % (0.0-2.0) Neutrophils # (Auto) 3.0 10 ^3/uL (1.6-8.6) Lymphocytes # (Auto) 1.3 10 ^3/uL (0.4-5.4) Monocytes # (Auto) 0.5 10 ^3/uL (0-1.3) Eosinophils # (Auto) 0.3 10 ^3/uL (0-0.8) Basophils # (Auto) 0 10 ^3/uL (0-0.2) Nucleated Red Blood Cells 0.0 % Sodium Level 141 mmol/L (136-145) Potassium Level 4.1 mmol/L (3.5-5.1) Chloride Level 104 mmol/L (98-107) Carbon Dioxide Level 28 mmol/L (20-31) Anion Gap 9 (5-15) Blood Urea Nitrogen 19 mg/dL (9-23) Creatinine 1.06 mg/dL (0.700-1.30) Glomerular Filtration Rate Calc 68 mL/min (>90) BUN/Creatinine Ratio 17.9 (10.0-20.0) Serum Glucose 105 mg/dL (74-106) Calcium Level 9.2 mg/dL (8.7-10.4) Other Laboratory Tests 09/13/25 18:05 Brief Hx & Hospital Course: 85-year-old male with a history of hypertension asthma history of prostate cancer status post radiation therapy and chemotherapy history of left eye stroke two years ago came in for dizziness and headache CT head negative MRI brain negative carotid ultrasound negative echocardiogram 50 percent ejection fraction. Patient received physical therapy ambulating. Vital signs are stable labs normal being discharged home explained through the help of the event manager prescription for meclizine transmitted to the pharmacy Consults/Reason for consult Neurology consult for Dr. House placed but he is on vacation Operations or Procedures CT head MRI brain Carotid ultrasound Echocardiogram Condition at Discharge: Fair Final Diagnosis/Problems List Dizziness and headache: CT head negative MRI brain negative carotid ultrasound negative all labs normal: Meclizine, Neurology consult for Dr. House pending Dr. House on vacation Hypertension History of left eye stroke two years ago Asthma History of prostate cancer status post radiation therapy and chemotherapy four years ago Echocardiogram 50 % ejection fraction, no valvular dysfunction Discharge Disposition: Home Discharge Instruct/Medications Diet: Cardiac 2g Na,low cholest Activity: Light activity Follow Up/Referral: Continue all your previous home medications Follow up with the primary Dr Rachael Crespo Follow up with the neurologist Dr. Huntley in two weeks through your primary dr Medications: Meclizine Transmitted to [facility] pharmacy Scheduled Albuterol Sulfate (Albuterol Sulfate Hfa), 2 PUFF INH Q4HR PRN, (Reported) Budesonide-Formoterol Fumarate (Budesonide/Formoterol Fum 160-4.5 Mcg/Act), 2 PUFF IN BID, (Reported) Doxazosin Mesylate (Doxazosin Mesylate), 1 TAB PO DAILY, (Reported) Doxazosin Mesylate (Doxazosin Mesylate), 4 MG PO HS, (Reported) Dutasteride (Dutasteride), 1 TAB PO PM, (Reported) Lactulose (Lactulose), 15 ML PO DAILY, (Reported) Lisinopril (Lisinopril), 1 TAB PO DAILY, (Reported) Lisinopril (Lisinopril), 1 TAB PO DAILY, (Reported) Nifedipine (Nifedipine Er), 1 TAB PO DAILY, (Reported) Scheduled PRN Albuterol Sulfate (Albuterol Sulfate), 2 MG PO Q6HP PRN for SHORTNESS OF BREATH, (Reported) Meclizine Hcl (Meclizine Hcl), 1 TAB PO TID PRN Miscellaneous Medications Fluticasone Propionate (Nasal) (Flonase Allergy Relief), 1-2 SPRAY EACHNOSTRI, (Reported) Discharge Statement: "Patient was advised to return to the ER or call 911 if any headaches, dizziness, shortness of breath, chest pain, abdominal pain, bleeding, fevers, or worsening of medical condition. Patient was counseled about treatment plan, medications, possible side effects, patientverbalized understanding. All questions were answered to the best of my ability. This discharge took greater then 30 minutes in planning, reviewing documentation, counseling the patient, and discussing with other team members." ASSESSMENT ASSESSMENT Hospital Course Uneventful Assessment Dizziness and headache: CT head negative MRI brain negative carotid ultrasound negative all labs normal: Meclizine, Neurology consult for Dr. House pending Dr. House on vacation Hypertension History of left eye stroke two years ago Asthma History of prostate cancer status post radiation therapy and chemotherapy four years ago Echocardiogram 50 % ejection fraction, no valvular dysfunction Date of Service: Sep 16, 2025 Billing Provider: PB GARNER MD Common Visit Codes: [id number] DISCH DAY >30min PB GARNER MD Sep 16, 2025 09:50
[2025-09-16 11:17] VITALS: BP 129/73; PULSE 66; RESP 20; TEMP 98.3; O2SAT 96
== END 2025-09-16 12:20 | disposition home or self-care (01) | DRG 74 ==
LOC: ER 17:10 → OVERFLOW 19:15 → CENTRAL 22:13
PROVIDERS: ADMIT Family Medicine; ATTEND Family Medicine
DX: G90.89 Other disorders of autonomic nervous system (principal); I10 Essential (primary) hypertension; J45.909 Unspecified asthma, uncomplicated; Z86.73 Personal history of transient ischemic attack (TIA), and cerebral infarction without residual deficits; Z85.46 Personal history of malignant neoplasm of prostate; Z92.3 Personal history of irradiation; Z87.11 Personal history of peptic ulcer disease; Z82.49 Family history of ischemic heart disease and other diseases of the circulatory system; Z92.21 Personal history of antineoplastic chemotherapy; Z79.899 Other long term (current) drug therapy
CPT/HCPCS: 36415; 70450; 70551; 80048; 81001; 85025; 87426; 93306; 93886; 94640; 97162; G0378